=== PATIENT | female | born 1995 | race Caucasian/White ===

== ENCOUNTER 2020-11-05 11:50 | Outpatient (REF) | payer OTHER, SELFPAY ==
[2020-11-05 14:47] LABS: Alanine Aminotransferase 10 U/L (0-31); Albumin Level 4.5 g/dL (3.5-5.0); Alkaline Phosphatase 48 U/L (39-117); Aspartate Amino Transferase 13 U/L (5-31); Bilirubin Direct 0.3 mg/dL (0.0-0.5); Bilirubin Total 0.7 mg/dL (0.0-1.0); Cholesterol 186 mg/dL; HDL Cholesterol 59 mg/dL; LDL Cholesterol Calculated 108 mg/dl; Total Protein 7.6 g/dL (6.5-8.0); Triglycerides 99 mg/dL
[2020-11-05 15:05] LABS: Reflex LDLD? No
== END 2020-11-05 11:51 | disposition home or self-care (01) ==
LOC: HO.HMGCLDS 11:50
PROVIDERS: PCP Internal Medicine; Visit Provider Physician Assistant Medical
DX: L70.0 Acne vulgaris (principal); B07.8 Other viral warts; R23.8 Other skin changes; L08.89 Other specified local infections of the skin and subcutaneous tissue; Z79.899 Other long term (current) drug therapy
CPT/HCPCS: 36415; 80061; 80076

== ENCOUNTER 2020-11-09 11:43 | Outpatient (REF) | payer OTHER, SELFPAY ==
[2020-11-09 14:00] LABS: MANUAL DIFF FLAG NO
[2020-11-09 14:16] LABS: Basophils Absolute Auto 0.1 X10*3/uL (0.0-0.2); Basophils Percent Auto 1.3 % (0-2); Eosinophils Absolute Auto 0.1 X10*3/uL (0.0-0.4); Hematocrit 41.5 % (37-47); Hemoglobin 14.1 g/dl (12.0-16.0); Imm Gran Abs Auto 0.03 X10*3/uL (0.00-0.03); Imm Gran Pct Auto 0.4 % (0.0-0.4); Lymphocytes Absolute Auto 2.5 X10*3/uL (1.2-4.9); Lymphocytes Percent Auto 34.9 % (20-40); Mean Corpuscular Hemoglobin 31.8 pg (27.0-33.0); Mean Corpuscular Volume 93.5 fL (80-98); Mean Platelet Volume 10.4 fL (9.4-12.3); Monocytes Absolute Auto 0.7 X10*3/uL (0.1-1.2); Monocytes Percent Auto 9.8 % (2-11); Neutrophils Absolute Auto 3.7 X10*3/uL (2.0-8.3); Neutrophils Percent Auto 52.6 % (45-73); Platelet Count 264 X10*3/uL (160-400); Red Blood Count 4.44 X10*6/uL (4.20-5.50); Red Cell Distribution Width 11.8 % (11.0-16.0); White Blood Count 7.1 X10*3/uL (4.8-10.8)
[2020-11-09 14:24] LABS: Anion Gap 13 (12-20); Blood Urea Nitrogen 10 mg/dL (9-16); Calcium 9.3 mg/dL (8.4-10.2); Carbon Dioxide 24 mmol/L (22-29); Chloride 105 mmol/L (96-108); Estimated Glomerular Filt Rate > 60; Glucose Fasting 79 mg/dL (60-99); Potassium 4.1 mmol/l (3.3-5.1); Sodium 138 mmol/L (135-145)
[2020-11-09 14:41] LABS: Estimated Average Glucose 88 mg/dL; Hemoglobin A1c % 4.7 %
[2020-11-09 14:47] LABS: TSH reflex Free T4 2.28 mIU/mL (0.32-4.0); Vitamin D 25-OH Total 16.1 ng/mL (>30)
[2020-11-09 14:57] LABS: Folate 12.4 ng/mL (> or = 4.0); Vitamin B12 424 pg/mL (200-900)
== END 2020-11-09 11:44 | disposition home or self-care (01) ==
LOC: HO.HMGCLDS 11:43
PROVIDERS: PCP Internal Medicine; Visit Provider Internal Medicine
DX: R00.2 Palpitations (principal); I10 Essential (primary) hypertension; R25.1 Tremor, unspecified
CPT/HCPCS: 36415; 80048; 82306; 82607; 82746; 83036; 84443; 85025

== ENCOUNTER 2020-12-23 21:44 | Emergency (ER) | payer OTHER, SELFPAY ==
[2020-12-24 00:25] VITALS: BP 119/75; PULSE 82; RESP 16; TEMP 36.7; O2SAT 100; BMI 17.4
[2020-12-24 00:41] LABS: Glucose, Whole Blood 77 mg/dL (60-115)
[2020-12-24] MEDS: 0.9 % Sodium Chloride 1,000 ML 999 ML IV (00:46)
[2020-12-24 01:07] LABS: Basophils Absolute Auto 0.1 X10*3/uL (0.0-0.2); Basophils Percent Auto 0.6 % (0-2); Eosinophils Percent Auto 0.2 % (0-4); Hematocrit 39.7 % (37-47); Imm Gran Abs Auto 0.03 X10*3/uL (0.00-0.03); Imm Gran Pct Auto 0.3 % (0.0-0.4); Lymphocytes Absolute Auto 2.4 X10*3/uL (1.2-4.9); Lymphocytes Percent Auto 21.9 % (20-40); Mean Corpuscular HGB Conc 35.3 g/dl (31.0-35.0); Mean Corpuscular Volume 90.8 fL (80-98); Mean Platelet Volume 9.8 fL (9.4-12.3); Monocytes Absolute Auto 0.7 X10*3/uL (0.1-1.2); Monocytes Percent Auto 6.5 % (2-11); Neutrophils Absolute Auto 7.6 X10*3/uL (2.0-8.3); Neutrophils Percent Auto 70.5 % (45-73); Platelet Count 298 X10*3/uL (160-400); Red Blood Count 4.37 X10*6/uL (4.20-5.50); Red Cell Distribution Width 11.5 % (11.0-16.0); White Blood Count 10.8 X10*3/uL (4.8-10.8)
[2020-12-24 01:08] LABS: MANUAL DIFF FLAG NO
[2020-12-24 01:11] LABS: Glucose Urine UA NEG (NEG); Leukocyte Esterase Urine NEG (NEG); Nitrite Urine NEG (NEG); Specific Gravity - Urine 1.025 (1.005-1.025); Urine Blood NEG (NEG); Urine Ketones 40 MG/DL (NEG); Urine Protein NEG (NEG-TRACE)
[2020-12-24 01:12] LABS: UPreg QC Valid YES; Urine Pregnancy NEGATIVE (NEGATIVE)
[2020-12-24 01:13] LABS: Appearance Urine CLEAR; Color Urine YELLOW; UACC Culture Trigger NO
--- NOTE | 2020-12-24 01:16 | ED_ITS ---
HPI - General Adult General Chief complaint: General Medical Stated complaint: nausea vomiting Time Seen by Provider: 12/24/20 00:10 Source: patient Mode of arrival: EMS History of Present Illness HPI narrative: This is a 25-year-old female who presents with ongoing multiple symptoms since approximately September that she states started after visiting [place] with her boyfriend. She states that since that time she has ?not felt right? and further describes that as being headaches, increased anxiety, tremors. On review of documentation she has been evaluated by her primary care provider for generalized anxiety disorder, palpitations, and on review of lab work from October/2020 there were no acute findings which included evaluation of B12/TSH/folate. Patient states that she has never been diagnosed with anxiety before and does not understand why she would be now and states she has never had any issues with nausea and vomiting and denies any hematemesis, but states she has had blood with her stools. Although she denies any eating disorders as a teenager she does endorse that she has used laxatives in the past and states that this was due to problems with constipation. She has explicitly stated that she is concerned she may have a brain tumor, but denies neurological deficits such as speech or unilateral numbness/tingling/weakness. She states she does feel safe at home. LMP: Currently menstruating. Related Data Previous Rx's Medication Instructions Recorded albuterol sulfate 90 mcg/actuation 1 puff INHALATION QID PRN #8.5 g 11/01/20 aerosol inhaler cholecalciferol (vitamin D3) 1,250 1,250 mcg PO QWEEK 90 Days #13 cap 11/10/20 mcg (50,000 unit) capsule buspirone 5 mg tablet 5 mg PO BID #60 tab 11/30/20 Allergies Allergy/AdvReac Type Severity Reaction Status Date / Time amoxicillin [AMOXICILLIN] Allergy Unknown ANAPHYLAXIS, Verified 11/30/20 13:40 unknown-childhood peanut [PEANUTS] Allergy Unknown SWELLING, Verified 11/30/20 13:40 anaphylaxis Penicillins [PENICILLINS] Allergy Unknown ANAPHYLAXIS Verified 11/30/20 13:40 Review of Systems Review of Systems: Pertinent positives and negatives as stated in HPI and 10 point review of systems is otherwise negative. PMFSH Past Medical History Source: nursing notes reviewed Medical History Generalized anxiety disorder IBS (irritable bowel syndrome) Mild intermittent asthma Palpitation Shakiness Vitamin D deficiency Surgical History History of wisdom tooth extraction Family History Family History Father Diabetes mellitus HTN (hypertension) Stroke Back problem Kidney stone Mother Anxiety Ovarian cyst Maternal Grandmother Unknown family medical history Maternal Grandfather Unknown family medical history Paternal Grandmother Unknown family medical history Alzheimer's disease Paternal Grandfather Unknown family medical history Brother No problems noted. Brother No problems noted. Brother No problems noted. Sister No problems noted. Sister No problems noted. Sister No problems noted. Sister No problems noted. Social History Social History Alcohol intake: never Smoking Status: Never smoker Advance Directives: No Physical Exam Vital Signs: Vital Signs: Last Vital Signs Temp 98.0 F 12/24/20 00:25 Pulse 82 12/24/20 00:25 Resp 16 12/24/20 00:25 BP 119/75 12/24/20 00:25 Pulse Ox 100 12/24/20 00:25 Body Mass Index 17.4 VITAL SIGNS: Reviewed. GENERAL: Well developed, well nourished, in no acute distress. HEAD: Normocephalic/atraumatic EYES: PERRLA, EOMI intact without pain, no nystagmus EARS: Ext canals without abnormality NOSE: Nares patent bilateral OROPHARYNX: no oral lesions noted, posterior pharynx clear NECK: Supple, no adenopathy LUNGS: Normal breath sounds. No adventitious sounds or accessory muscle use. SpO2<100> CARDIOVASCULAR: Regular rate and rhythm without noted murmurs ABDOMEN: Soft, non-tender, non-distended with bowel sounds. SKIN: Inspection of the skin reveals no rashes NEUROLOGIC: Alert and oriented x 4. Strength and sensation to light touch were grossly intact x 4. Course Course Course Narrative: This is a 25-year-old female with history and clinical presentation consistent with likely anxiety disorder, but will rule out infection/anemia/electrolyte derangements as well as fluid resuscitating in providing anti emetics. On review of all investigations there is no acute findings to suggest electrolyte abnormalities, infection, anemia, . On re-evaluation patient is feeling improved after receiving IV fluids (she declined Zofran) and was discharged in stable condition and noted to be tolerating oral intake. Medical Decision Making Lab Data Result diagrams: 12/24/20 01:01 12/24/20 01:01 Labs: Lab Results 12/24/20 12/24/20 12/24/20 Range/Units 00:37 01:01 01:01 WBC (4.8-10.8) X10*3/uL RBC (4.20-5.50) X10*6/uL Hgb (12.0-16.0) g/dl Hct (37-47) % MCV (80-98) fL MCH (27.0-33.0) pg MCHC (31.0-35.0) g/dl RDW (11.0-16.0) % Plt Count (160-400) X10*3/uL MPV (9.4-12.3) fL Immature Gran % (Auto) (0.0-0.4) % Neut % (Auto) (45-73) % Lymph % (Auto) (20-40) % [place] % (Auto) (2-11) % Eos % (Auto) (0-4) % Baso % (Auto) (0-2) % Lymph # (Auto) (1.2-4.9) X10*3/uL [place] # (Auto) (0.1-1.2) X10*3/uL Eos # (Auto) (0.0-0.4) X10*3/uL Baso # (Auto) (0.0-0.2) X10*3/uL Abs Immat Gran (auto) (0.00-0.03) X10*3/uL Absolute Neuts (auto) (2.0-8.3) X10*3/uL Absolute Nucleated RBC (0.0-0.012) X10*3/uL Nucleated RBC % (auto) (0.0-0.2) /100WBC ESR 7 (0-20) MM/HR Sodium 138 (135-145) mmol/L Potassium 4.1 (3.3-5.1) mmol/L Chloride 103 (96-108) mmol/L Carbon Dioxide 25 (22-29) mmol/L Anion Gap 14 (12-20) BUN 12 (9-16) mg/dL Creatinine 0.82 (0.5-1.4) mg/dL Estim Creat Clear Calc 78.1 Estimated GFR > 60 POC Glucose 77 (60-115) mg/dL Random Glucose 87 (60-115) mg/dL Calcium 9.5 (8.4-10.2) mg/dL Total Bilirubin 0.5 (0.0-1.0) mg/dL AST 13 (5-31) U/L ALT 12 (0-31) U/L Alkaline Phosphatase 50 (39-117) U/L C-Reactive Protein 0.09 (< or = 0.50) mg/dL Total Protein 7.8 (6.5-8.0) g/dL Albumin 4.7 (3.5-5.0) g/dL Lipase (8-78) U/L Urine Color Urine Appearance Urine pH (5.0-8.0) Ur Specific [place] (1.005-1.025) Urine Protein (NEG-TRACE) MG/DL Urine Glucose (UA) (NEG) MG/DL Urine Ketones (NEG) MG/DL Urine Blood (NEG) Urine Nitrite (NEG) Ur Leukocyte Esterase (NEG) Urine Test (NEGATIVE) Urine Opiates Screen (Not Detect) Ur Barbiturates Screen (Not Detect) Ur Phencyclidine Scrn (Not Detect) Ur Amphetamines Screen (Not Detect) U Benzodiazepines Scrn (Not Detect) Urine Cocaine Screen (Not Detect) U Marijuana (THC) Screen (Not Detect) 12/24/20 12/24/20 12/24/20 Range/Units 01:01 01:01 01:01 WBC 10.8 (4.8-10.8) X10*3/uL RBC 4.37 (4.20-5.50) X10*6/uL Hgb 14.0 (12.0-16.0) g/dl Hct 39.7 (37-47) % MCV 90.8 (80-98) fL MCH 32.0 (27.0-33.0) pg MCHC 35.3 H (31.0-35.0) g/dl RDW 11.5 (11.0-16.0) % Plt Count 298 (160-400) X10*3/uL MPV 9.8 (9.4-12.3) fL Immature Gran % (Auto) 0.3 (0.0-0.4) % Neut % (Auto) 70.5 (45-73) % Lymph % (Auto) 21.9 (20-40) % [place] % (Auto) 6.5 (2-11) % Eos % (Auto) 0.2 (0-4) % Baso % (Auto) 0.6 (0-2) % Lymph # (Auto) 2.4 (1.2-4.9) X10*3/uL [place] # (Auto) 0.7 (0.1-1.2) X10*3/uL Eos # (Auto) 0.0 (0.0-0.4) X10*3/uL Baso # (Auto) 0.1 (0.0-0.2) X10*3/uL Abs Immat Gran (auto) 0.03 (0.00-0.03) X10*3/uL Absolute Neuts (auto) 7.6 (2.0-8.3) X10*3/uL Absolute Nucleated RBC 0.000 (0.0-0.012) X10*3/uL Nucleated RBC % (auto) 0.0 (0.0-0.2) /100WBC ESR (0-20) MM/HR Sodium (135-145) mmol/L Potassium (3.3-5.1) mmol/L Chloride (96-108) mmol/L Carbon Dioxide (22-29) mmol/L Anion Gap (12-20) BUN (9-16) mg/dL Creatinine (0.5-1.4) mg/dL Estim Creat Clear Calc Estimated GFR POC Glucose (60-115) mg/dL Random Glucose (60-115) mg/dL Calcium (8.4-10.2) mg/dL Total Bilirubin (0.0-1.0) mg/dL AST (5-31) U/L ALT (0-31) U/L Alkaline Phosphatase (39-117) U/L C-Reactive Protein (< or = 0.50) mg/dL Total Protein (6.5-8.0) g/dL Albumin (3.5-5.0) g/dL Lipase 25 (8-78) U/L Urine Color Urine Appearance Urine pH (5.0-8.0) Ur Specific [place] (1.005-1.025) Urine Protein (NEG-TRACE) MG/DL Urine Glucose (UA) (NEG) MG/DL Urine Ketones (NEG) MG/DL Urine Blood (NEG) Urine Nitrite (NEG) Ur Leukocyte Esterase (NEG) Urine Test (NEGATIVE) Urine Opiates Screen Not Detected (Not Detect) Ur Barbiturates Screen Not Detected (Not Detect) Ur Phencyclidine Scrn Not Detected (Not Detect) Ur Amphetamines Screen Not Detected (Not Detect) U Benzodiazepines Scrn Not Detected (Not Detect) Urine Cocaine Screen Not Detected (Not Detect) U Marijuana (THC) Screen Not Detected (Not Detect) 12/24/20 12/24/20 Range/Units 01:01 01:01 WBC (4.8-10.8) X10*3/uL RBC (4.20-5.50) X10*6/uL Hgb (12.0-16.0) g/dl Hct (37-47) % MCV (80-98) fL MCH (27.0-33.0) pg MCHC (31.0-35.0) g/dl RDW (11.0-16.0) % Plt Count (160-400) X10*3/uL MPV (9.4-12.3) fL Immature Gran % (Auto) (0.0-0.4) % Neut % (Auto) (45-73) % Lymph % (Auto) (20-40) % [place] % (Auto) (2-11) % Eos % (Auto) (0-4) % Baso % (Auto) (0-2) % Lymph # (Auto) (1.2-4.9) X10*3/uL [place] # (Auto) (0.1-1.2) X10*3/uL Eos # (Auto) (0.0-0.4) X10*3/uL Baso # (Auto) (0.0-0.2) X10*3/uL Abs Immat Gran (auto) (0.00-0.03) X10*3/uL Absolute Neuts (auto) (2.0-8.3) X10*3/uL Absolute Nucleated RBC (0.0-0.012) X10*3/uL Nucleated RBC % (auto) (0.0-0.2) /100WBC ESR (0-20) MM/HR Sodium (135-145) mmol/L Potassium (3.3-5.1) mmol/L Chloride (96-108) mmol/L Carbon Dioxide (22-29) mmol/L Anion Gap (12-20) BUN (9-16) mg/dL Creatinine (0.5-1.4) mg/dL Estim Creat Clear Calc Estimated GFR POC Glucose (60-115) mg/dL Random Glucose (60-115) mg/dL Calcium (8.4-10.2) mg/dL Total Bilirubin (0.0-1.0) mg/dL AST (5-31) U/L ALT (0-31) U/L Alkaline Phosphatase (39-117) U/L C-Reactive Protein (< or = 0.50) mg/dL Total Protein (6.5-8.0) g/dL Albumin (3.5-5.0) g/dL Lipase (8-78) U/L Urine Color YELLOW Urine Appearance CLEAR Urine pH 6.0 (5.0-8.0) Ur Specific [place] 1.025 (1.005-1.025) Urine Protein NEG (NEG-TRACE) MG/DL Urine Glucose (UA) NEG (NEG) MG/DL Urine Ketones 40 (NEG) MG/DL Urine Blood NEG (NEG) Urine Nitrite NEG (NEG) Ur Leukocyte Esterase NEG (NEG) Urine Test NEGATIVE (NEGATIVE) Urine Opiates Screen (Not Detect) Ur Barbiturates Screen (Not Detect) Ur Phencyclidine Scrn (Not Detect) Ur Amphetamines Screen (Not Detect) U Benzodiazepines Scrn (Not Detect) Urine Cocaine Screen (Not Detect) U Marijuana (THC) Screen (Not Detect) Discharge Plan Discharge Clinical Impression: Anxiety about health Nausea & vomiting Qualifiers: Vomiting type: unspecified Vomiting Intractability: non-intractable Qualified Code(s): R11.2 - Nausea with vomiting, unspecified Patient Disposition: Home, Self-Care Instructions: Anxiety (ED), Acute Nausea and Vomiting (ED) Additional Instructions: Please resume all home medications as prescribed. Please follow-up with your primary care provider in 2-3 days for re-evaluation and continued outpatient management of your symptoms. Do not hesitate to return to this emergency room should you experience any acute worsening of your symptoms. Prescriptions: No Action albuterol sulfate 90 mcg/actuation HFA aerosol inhaler 1 puff inhalation QID PRN (Reason: for wheezing) Qty: 8.5 RF: 0 cholecalciferol (vitamin D3) 1,250 mcg (50,000 unit) capsule 1,250 mcg PO QWEEK 90 Days Qty: 13 RF: 1 buspirone 5 mg tablet 5 mg PO BID Qty: 60 RF: 0 Referrals: Luisa Manriquez MD [Primary Care Provider] - 2 days (Re-evaluation outpatient management after negative workup in emergency department.)
[2020-12-24 01:34] LABS: Amphetamine Screen Urine Not Detected (Not Detect); Barbiturates, Urine Not Detected (Not Detect); Benzodiazepines Screen Urine Not Detected (Not Detect); Cannabinoid Screen Urine Not Detected (Not Detect); Cocaine Screen Urine Not Detected (Not Detect); Opiate Screen Urine Not Detected (Not Detect); Phencyclidine Screen Urine Not Detected (Not Detect)
[2020-12-24 01:35] LABS: Alanine Aminotransferase 12 U/L (0-31); Albumin Level 4.7 g/dL (3.5-5.0); Alkaline Phosphatase 50 U/L (39-117); Anion Gap 14 (12-20); Aspartate Amino Transferase 13 U/L (5-31); Bilirubin Total 0.5 mg/dL (0.0-1.0); Blood Urea Nitrogen 12 mg/dL (9-16); C Reactive Protein 0.09 mg/dL (< or = 0.50); Calcium 9.5 mg/dL (8.4-10.2); Carbon Dioxide 25 mmol/L (22-29); Chloride 103 mmol/L (96-108); Creatinine Clr Calc Pharmacy 78.1; Estimated Glomerular Filt Rate > 60; Glucose Random 87 mg/dL (60-115); Lipase 25 U/L (8-78); Potassium 4.1 mmol/L (3.3-5.1); Sodium 138 mmol/L (135-145); Total Protein 7.8 g/dL (6.5-8.0)
[2020-12-24 01:52] LABS: Erythrocyte Sedimentation Rate 7 MM/HR (0-20)
[2020-12-24 02:00] VITALS: BP 111/71; PULSE 81; RESP 18; TEMP 36.7; O2SAT 98
[2020-12-24 02:57] VITALS: BP 111/71; PULSE 75; RESP 16; O2SAT 98
== END 2020-12-24 03:00 | disposition home or self-care (01) ==
PROVIDERS: Emergency Provider Student in an Organized Health Care Education/Training Program; PCP Internal Medicine
DX: R11.2 Nausea with vomiting, unspecified (principal); F41.9 Anxiety disorder, unspecified; Z79.899 Other long term (current) drug therapy
CPT/HCPCS: 36415; 80053; 80164; 80307; 81003; 81025; 82947; 83690; 85025; 85652; 86140; 96360; 99284

== ENCOUNTER 2021-01-05 12:42 | Outpatient (REF) | payer OTHER, SELFPAY ==
--- NOTE | ~2021-01-05 | MR_ITS ---
EXAMINATION: MR BRAIN WITHOUT CONTRAST CLINICAL INFORMATION: Headaches. COMPARISON: None. TECHNIQUE: Multiplanar, multisequence imaging of the brain was performed without contrast. FINDINGS: No diffusion abnormalities are identified to suggest an acute or subacute infarct. The ventricles are normal in size. No mass effect or midline shift is seen. No brain parenchymal signal abnormality is noted. No extra-axial fluid collections are seen. The brainstem and cerebellum are normal. The gradient refocused acquisition is normal. The craniovertebral junction, marrow signal, and midline structures are normal. The major intracranial flow voids at the level of the [place] of [place] are preserved. The dural venous sinus flow voids are maintained. The mastoid air cells and paranasal sinuses are well aerated. MR/MR head/brain wo con IMPRESSION: Normal MRI of the brain.
== END 2021-01-05 12:43 | disposition home or self-care (01) ==
LOC: HO.MRI 12:42
PROVIDERS: Visit Provider Internal Medicine
DX: R51.9 Headache, unspecified (principal); R41.3 Other amnesia; R53.1 Weakness; R20.2 Paresthesia of skin
CPT/HCPCS: 70551

== ENCOUNTER 2021-01-19 09:15 | Outpatient (RCR) | payer OTHER, SELFPAY ==
[2021-01-18 12:07] VITALS: BMI 17.9
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
--- NOTE | 2021-01-19 10:53 | PC.NURSE ---
Patient started Mirtazapine 15 mg QHS taking a half tab as instructed. Stated she felt a little groggy this morning. Patient also took Ativan PRN this morning d/t increased anxiety. Medication Education provided. Instructed patient not to drive or operate heavy machinery if feeling drowsy.
--- NOTE | 2021-01-20 09:24 | PC.NURSE ---
Client called and left nahomy that she won't be in because she is going for an assessment at crisis. She states that she feels nothing is helping not even the medication and she needs something else. I called and left a message to call us to let us know what happened.
--- NOTE | 2021-01-20 15:13 | PC.NURSE ---
case opened in treatment team
--- NOTE | 2021-01-21 09:22 | PC.NURSE ---
Patient did not show up to the program today. I called Devi and she stated she will not be attending PHP as she is waiting for crisis to call her as she is planning on going to [facility] today. Asked patient is she was feeling safe and she stated she was. Distressed over her obsessive thoughts. Patient aware if she wants to come back to the program after [facility] to give us a call.
--- NOTE | 2021-01-24 10:26 | PC.NURSE ---
A meeage was left with client<s therapist regarding client discharge.
== END 2021-01-19 23:55 | disposition left against medical advice (07) ==
LOC: HO.PHPA 09:15
PROVIDERS: Visit Provider Psychiatry & Neurology Psychiatry
DX: F42.9 Obsessive-compulsive disorder, unspecified (principal); F34.1 Dysthymic disorder
CPT/HCPCS: 90791; 90853

== ENCOUNTER 2022-02-11 15:38 | Outpatient (REF) | payer OTHER, SELFPAY ==
[2022-02-11 16:38] LABS: Influenza A PCR NEGATIVE (Negative); Influenza B PCR NEGATIVE (Negative); Resp Syncy Virus RNA Qual PCR NEGATIVE (Negative); SARS COV2 PCR INHOUSE NEGATIVE (Negative)
== END 2022-02-11 15:39 | disposition home or self-care (01) ==
LOC: HO.LNP 15:38
PROVIDERS: Visit Provider Physician Assistant
DX: Z20.822 Contact with and (suspected) exposure to COVID-19 (principal); B34.9 Viral infection, unspecified
CPT/HCPCS: 0241U

== ENCOUNTER 2022-10-09 08:12 | Emergency (ER) | payer OTHER, SELFPAY ==
[2022-10-09 08:15] VITALS: BP 140/77; PULSE 109; RESP 20; TEMP 36.7; O2SAT 98; BMI 27.4
[2022-10-09 08:59] LABS: COVID-19 Test Negative (Negative); IDNOW Serial# 16C4AD1C; IDNOW Serial# 9DB6401D; Influenza A Negative (Negative); Influenza B2 Negative (Negative)
[2022-10-09 09:37] LABS: Strep A Nucleic Acid Negative (Negative)
--- NOTE | 2022-10-09 09:40 | ED.GENADULT ---
HPI - General Adult General Chief complaint: Upper Respiratory Symptoms Stated complaint: Flu symptoms Time Seen by Provider: 10/09/22 08:57 Source: patient Mode of arrival: ambulatory Limitations: no limitations History of Present Illness HPI narrative: 27-year-old female presented to the ED for evaluation of upper respiratory symptoms. Patient been having generalized weakness, body ache, subjective tactile fever, chills, sore throat, dry cough. Patient was exposed to her boyfriend who was sick with influenza A 10 days ago and feels better now. Related Data Home Medications Medication Instructions Recorded Confirmed albuterol sulfate 90 mcg/actuation 1 puff inhalation Q6H 07/24/22 07/24/22 aerosol inhaler (ProAir HFA) Previous Rx's Medication Instructions Recorded benzonatate 200 mg capsule 200 mg PO BID PRN Post COVID 07/24/22 cough #20 caps fluoxetine 40 mg capsule 40 mg PO DAILY 90 days #90 caps 08/11/22 lorazepam 1 mg tablet 1 mg PO DAILY PRN anxiety 14 days 09/26/22 #14 tabs loperamide 2 mg capsule 2 mg PO Q6H PRN loose stool #14 09/29/22 (Anti-Diarrheal (loperamide)) caps ondansetron 4 mg disintegrating 4 mg PO Q8-12H PRN nausea and 09/29/22 tablet vomiting #14 tabs Allergies Allergy/AdvReac Type Severity Reaction Status Date / Time amoxicillin [AMOXICILLIN] Allergy Unknown Rash Verified 09/29/22 08:19 Penicillins [PENICILLINS] Allergy Unknown Rash Verified 09/29/22 08:19 Review of Systems Review of Systems: All other systems are reviewed and are negative Constitutional: Reports as per HPI and Reports no additional constitutional complaints Eyes: Reports as per HPI and Reports no additional eye complaints Reports system reviewed and no additional complaints, except as documented Cardiovascular: Reports as per HPI and Reports no additional cardiovascular complaints Respiratory: Reports as per HPI and Reports no additional respiratory complaints Gastrointestinal: Reports as per HPI and Reports no additional gastrointestinal complaints Genitourinary: Reports no additional female genitourinary complaints Musculoskeletal: Reports no additional musculoskeletal complaints Skin/Breast: Reports system reviewed and no additional complaints, except as docu Psychiatric: Reports no additional psychiatric complaints Endocrine: Reports no additional endocrine complaints Hematologic/Lymphatic: Reports no additional hematologic/lymphatic complaints Allergic/Immunologic: Reports no additional allergic/immunologic complaints Reports system reviewed and no additional complaints, except as documented and Reports Abnormal speech present [facility] Past Medical History Medical History Generalized anxiety disorder IBS (irritable bowel syndrome) Mild intermittent asthma Vitamin D deficiency Surgical History History of wisdom tooth extraction Family History Family History Father Diabetes mellitus HTN (hypertension) Stroke Back problem Kidney stone Mother Anxiety Ovarian cyst Maternal Grandmother Unknown family medical history Maternal Grandfather Unknown family medical history Paternal Grandmother Unknown family medical history Alzheimer's disease Paternal Grandfather Unknown family medical history Brother No problems noted. Brother No problems noted. Brother No problems noted. Sister No problems noted. Sister No problems noted. Sister No problems noted. Sister No problems noted. Social History Social History Household Members: Family Housing: House Alcohol intake: never Patient Tobacco Use Status: Never used Tobacco e-Cigarette/Vaping Use: Never Used Advance Directives: No Advance Directives Information Provided: No service: No Current occupational status: employed Cognitive needs: No Hearing needs: No Vision needs: Yes Physical Exam ED Vital Signs: Vital Signs - 24 hr 10/09/22 08:15 Temperature 98.1 F Pulse Rate 109 H Respiratory Rate 20 Blood Pressure 140/77 H Pulse Oximetry 98 Oxygen Delivery Method Room Air BMI result Body Mass Index 27.4 Vital signs have been reviewed as appeared to be correct. Blood pressure normal. Tachycardia. Respiration rate normal. Temperature normal. Oxygen saturation normal. Appearance: Alert. Oriented X3. No acute distress. Head: Normal external exam. Normocephalic. Atraumatic. No Barrientos signs noted. No raccoon eyes noted Eyes: PERRLA. EOMI. Conjunctiva and sclera normal. Eyelids normal. ENT: TM's Normal. Pharynx normal. Uvula midline. Moist mucous membranes. No trismus noted. No drooling noted. No muffled voice noted. Neck: Normal inspection. Neck supple. FROM. No adenopathy. Thyroid Normal. No meningeal signs. No neck mass noted. CVS: Normal heart rate and rhythm. Heart sound normal. No murmurs noted. Pulses normal throughout. Respiratory: No respiratory distress. Painless inspiration. Breath sounds normal. No wheezes/rales/rhonchi noted. Chest nontender. No accessory muscle usage noted or decreased air movement noted. Abdomen: Soft and nontender. Bowel sounds normal in all 4 quadrants. No distention noted. No organomegaly noted. No visible injury noted. Back: No CVA tenderness. Full range of motion noted. Skin: Skin warm and dry. Normal skin color. Normal skin turgor. No rashes/lesions/lacerations noted. Extremities: No lower extremity edema. Extremities exhibit normal range of motion. Extremities nontender. Neuro: Oriented X 3. Cranial nerve exam: II-XII are grossly intact No motor deficit. No sensory deficit. Reflexes normal. Course Course Course Narrative: 27-year-old female with previous exposure to influenza a, came in with upper respiratory symptoms patient is negative for upper respiratory viral panel. Medical Decision Making Differential Diagnosis Differential Diagnoses: The differential diagnosis associated with the presentation includes (RSV, influenza a/B, COVID-19 infection, strep pharyngitis, common cold.) Lab Data MDM Lab Attestation statement: I reviewed the patient's lab results. Labs: Lab Results 10/09/22 10/09/22 10/09/22 Range/Units 08:19 08:19 09:22 COVID-19 (JUAN) Negative (Negative) COVID-19 Clin Com See Note Influenza Type A (JON) Negative (Negative) Influenza Type B (JON) Negative (Negative) Influenza A & B Note See Note S. pyogenes GrpA JON Negative (Negative) Discharge Plan Discharge Clinical Impression: Viral infection Patient Disposition: Home, Self-Care Instructions: Viral Syndrome (ED) Prescriptions: No Action fluoxetine 40 mg capsule 40 mg PO DAILY 90 Days Qty: 90 1RF lorazepam 1 mg tablet 1 mg PO DAILY PRN (Reason: anxiety) 14 Days Qty: 14 0RF ondansetron 4 mg tablet,disintegrating 4 mg PO Q8-12H PRN (Reason: nausea and vomiting) Qty: 14 0RF loperamide [Anti-Diarrheal (loperamide)] 2 mg capsule 2 mg PO Q6H PRN (Reason: loose stool) Qty: 14 0RF albuterol sulfate [ProAir HFA] 90 mcg/actuation HFA aerosol inhaler 1 puff inhalation Q6H benzonatate 200 mg capsule 200 mg PO BID PRN (Reason: Post COVID cough) Qty: 20 0RF Referrals: Luisa Manriquez MD [Primary Care Provider] - Stand Alone Forms: Work/School Release
== END 2022-10-09 10:07 | disposition home or self-care (01) ==
PROVIDERS: Emergency Provider Emergency Medicine; PCP Internal Medicine
DX: B34.9 Viral infection, unspecified (principal); J02.9 Acute pharyngitis, unspecified; Z20.822 Contact with and (suspected) exposure to COVID-19
CPT/HCPCS: 36415; 87502; 87635; 87651; 99283

== ENCOUNTER 2022-10-11 04:07 | Emergency (ER) | payer OTHER, SELFPAY ==
[2022-10-11 04:12] VITALS: BP 116/72; PULSE 100; RESP 16; TEMP 36.9; O2SAT 98; BMI 26.8
[2022-10-11 05:19] LABS: Influenza A PCR NEGATIVE (Negative); Influenza B PCR NEGATIVE (Negative); Resp Syncy Virus RNA Qual PCR NEGATIVE (Negative); SARS COV2 PCR INHOUSE NEGATIVE (Negative)
--- NOTE | 2022-10-11 06:26 | ED.GENADULT ---
HPI - General Adult General Chief complaint: Upper Respiratory Symptoms Stated complaint: was here 2 days ago, symptoms worsening Time Seen by Provider: 10/11/22 04:52 Source: patient and family Mode of arrival: ambulatory Limitations: no limitations History of Present Illness HPI narrative: 27-year-old female presented to the ED for evaluation of upper respiratory symptoms.? Patient been having generalized weakness, body ache, subjective tactile fever, chills, sore throat, dry cough.? Patient was exposed to her boyfriend who was sick with influenza A 10 days ago and feels better now. Patient was seen in emergency department 2 days ago and tested negative for upper respiratory viral panels. Patient returned today for persistence of symptoms. Related Data Home Medications Medication Instructions Recorded Confirmed albuterol sulfate 90 mcg/actuation 1 puff inhalation Q6H 07/24/22 07/24/22 aerosol inhaler (ProAir HFA) Previous Rx's Medication Instructions Recorded benzonatate 200 mg capsule 200 mg PO BID PRN Post COVID 07/24/22 cough #20 caps fluoxetine 40 mg capsule 40 mg PO DAILY 90 days #90 caps 08/11/22 lorazepam 1 mg tablet 1 mg PO DAILY PRN anxiety 14 days 09/26/22 #14 tabs loperamide 2 mg capsule 2 mg PO Q6H PRN loose stool #14 09/29/22 (Anti-Diarrheal (loperamide)) caps ondansetron 4 mg disintegrating 4 mg PO Q8-12H PRN nausea and 09/29/22 tablet vomiting #14 tabs Allergies Allergy/AdvReac Type Severity Reaction Status Date / Time amoxicillin [AMOXICILLIN] Allergy Unknown Rash Verified 10/10/22 09:13 Penicillins [PENICILLINS] Allergy Unknown Rash Verified 10/10/22 09:13 Review of Systems Review of Systems: All other systems are reviewed and are negative Constitutional: Reports as per HPI and Reports no additional constitutional complaints Eyes: Reports as per HPI and Reports no additional eye complaints Reports system reviewed and no additional complaints, except as documented Cardiovascular: Reports as per HPI and Reports no additional cardiovascular complaints Respiratory: Reports as per HPI and Reports no additional respiratory complaints Gastrointestinal: Reports as per HPI and Reports no additional gastrointestinal complaints Genitourinary: Reports no additional female genitourinary complaints Musculoskeletal: Reports no additional musculoskeletal complaints Skin/Breast: Reports system reviewed and no additional complaints, except as docu Psychiatric: Reports no additional psychiatric complaints Endocrine: Reports no additional endocrine complaints Hematologic/Lymphatic: Reports no additional hematologic/lymphatic complaints Allergic/Immunologic: Reports no additional allergic/immunologic complaints Reports system reviewed and no additional complaints, except as documented and Reports Abnormal speech present [facility] Past Medical History Medical History Generalized anxiety disorder IBS (irritable bowel syndrome) Mild intermittent asthma Vitamin D deficiency Surgical History History of wisdom tooth extraction Family History Family History Father Diabetes mellitus HTN (hypertension) Stroke Back problem Kidney stone Mother Anxiety Ovarian cyst Maternal Grandmother Unknown family medical history Maternal Grandfather Unknown family medical history Paternal Grandmother Unknown family medical history Alzheimer's disease Paternal Grandfather Unknown family medical history Brother No problems noted. Brother No problems noted. Brother No problems noted. Sister No problems noted. Sister No problems noted. Sister No problems noted. Sister No problems noted. Social History Social History Household Members: Family Housing: House Alcohol intake: never Patient Tobacco Use Status: Never used Tobacco e-Cigarette/Vaping Use: Never Used Advance Directives: No Advance Directives Information Provided: Yes service: No Current occupational status: employed Cognitive needs: No Hearing needs: No Vision needs: Yes Physical Exam ED Vital Signs: Vital Signs - 24 hr 10/11/22 04:12 Temperature 98.4 F Pulse Rate 100 Respiratory Rate 16 Blood Pressure 116/72 Pulse Oximetry 98 Oxygen Delivery Method Room Air BMI result Body Mass Index 26.8 Vital signs have been reviewed as appeared to be correct. Blood pressure normal. Heart rate normal. Respiration rate normal. Temperature normal. Oxygen saturation normal. Appearance: Alert. Oriented X3. No acute distress. Head: Normal external exam. Normocephalic. Atraumatic. No Barrientos signs noted. No raccoon eyes noted Eyes: PERRLA. EOMI. Conjunctiva and sclera normal. Eyelids normal. ENT: TM's Normal. Pharynx normal. Uvula midline. Moist mucous membranes. No trismus noted. No drooling noted. No muffled voice noted. Neck: Normal inspection. Neck supple. FROM. No adenopathy. Thyroid Normal. No meningeal signs. No neck mass noted. CVS: Normal heart rate and rhythm. Heart sound normal. No murmurs noted. Pulses normal throughout. Respiratory: No respiratory distress. Painless inspiration. Breath sounds normal. No wheezes/rales/rhonchi noted. Chest nontender. No accessory muscle usage noted or decreased air movement noted. Abdomen: Soft and nontender. Bowel sounds normal in all 4 quadrants. No distention noted. No organomegaly noted. No visible injury noted. Back: No CVA tenderness. Full range of motion noted. Skin: Skin warm and dry. Normal skin color. Normal skin turgor. No rashes/lesions/lacerations noted. Extremities: No lower extremity edema. Extremities exhibit normal range of motion. Extremities nontender. Neuro: Oriented X 3. Cranial nerve exam: II-XII are grossly intact No motor deficit. No sensory deficit. Reflexes normal. Course Course Course Narrative: 27-year-old female with upper respiratory symptoms patient tested negative for upper respiratory viral panels. Patient was instructed to stay home drink plenty of fluids and take ibuprofen/ Tylenol whenever needed. Medical Decision Making Differential Diagnosis Differential Diagnoses: The differential diagnosis associated with the presentation includes ( Influenza a/influenza B/ RSV / COVID-19 infection.) Lab Data MDM Lab Attestation statement: I reviewed the patient's lab results. Labs: Lab Results 10/11/22 Range/Units 04:38 Influenza Type A (PCR) NEGATIVE (Negative) Influenza Type B (PCR) NEGATIVE (Negative) RSV RNA Qual (PCR) NEGATIVE (Negative) SARS-CoV-2 RNA (RT-PCR) NEGATIVE (Negative) Discharge Plan Discharge Clinical Impression: Viral infection Patient Disposition: Home, Self-Care Instructions: Viral Syndrome (ED) Prescriptions: No Action fluoxetine 40 mg capsule 40 mg PO DAILY 90 Days Qty: 90 1RF lorazepam 1 mg tablet 1 mg PO DAILY PRN (Reason: anxiety) 14 Days Qty: 14 0RF ondansetron 4 mg tablet,disintegrating 4 mg PO Q8-12H PRN (Reason: nausea and vomiting) Qty: 14 0RF loperamide [Anti-Diarrheal (loperamide)] 2 mg capsule 2 mg PO Q6H PRN (Reason: loose stool) Qty: 14 0RF albuterol sulfate [ProAir HFA] 90 mcg/actuation HFA aerosol inhaler 1 puff inhalation Q6H benzonatate 200 mg capsule 200 mg PO BID PRN (Reason: Post COVID cough) Qty: 20 0RF Referrals: Luisa Manriquez MD [Primary Care Provider] -
--- NOTE | 2022-10-11 06:40 | PC.NURSE ---
Pt left after speaking with MD, did not wait for discharge papers or vitals.
== END 2022-10-11 06:44 | disposition home or self-care (01) ==
PROVIDERS: Emergency Provider Emergency Medicine; PCP Internal Medicine
DX: B34.9 Viral infection, unspecified (principal); R05.9 Cough, unspecified; R06.02 Shortness of breath; Z20.822 Contact with and (suspected) exposure to COVID-19; Z79.899 Other long term (current) drug therapy
CPT/HCPCS: 0241U; 99283

== ENCOUNTER 2023-04-16 21:18 | Emergency (ER) | payer OTHER, SELFPAY ==
[2023-04-16 21:30] VITALS: BP 123/76; PULSE 115; RESP 20; TEMP 37.4; O2SAT 98; BMI 28.0
[2023-04-17 00:22] VITALS: BP 107/76; PULSE 101; RESP 14; TEMP 37.2; O2SAT 99
--- NOTE | 2023-04-17 00:33 | ED.GENADULT ---
HPI - General Adult General Chief complaint: Fever Stated complaint: fever,vomiting,body aches Time Seen by Provider: 04/17/23 00:31 Source: patient Mode of arrival: ambulatory Limitations: no limitations History of Present Illness HPI narrative: Patient been having sore throat body aches nausea vomiting after cough since yesterday evening no abdominal pain no urinary symptoms no significant shortness of breath no other family member sick at home took Tylenol and Mucinex today at 16:00 no other co-worker sick Related Data Home Medications Medication Instructions Recorded Confirmed albuterol sulfate 90 mcg/actuation 1 puff inhalation Q6H 07/24/22 11/15/22 aerosol inhaler (ProAir HFA) acetaminophen 500 mg oral powder 1,000 mg PO Q6H PRN 11/16/22 packet (Tylenol Extra Strength) Previous Rx's Medication Instructions Recorded fluoxetine 40 mg capsule 40 mg PO DAILY 90 days #90 caps 10/11/22 lorazepam 1 mg tablet 1 mg PO DAILY PRN anxiety 14 days 12/12/22 #14 tabs cefdinir 300 mg capsule 300 mg PO BID #14 caps 04/17/23 ibuprofen 600 mg tablet 600 mg PO Q6H PRN fever or pain 04/17/23 #30 tabs Allergies Allergy/AdvReac Type Severity Reaction Status Date / Time amoxicillin [AMOXICILLIN] Allergy Unknown Rash Verified 11/17/22 01:08 Penicillins [PENICILLINS] Allergy Unknown Rash Verified 11/17/22 01:08 Review of Systems Review of Systems: Yes all other systems are reviewed and are negative PMFSH Past Medical History Medical History Generalized anxiety disorder IBS (irritable bowel syndrome) Large breasts Mild intermittent asthma Upper back pain, chronic Vitamin D deficiency Surgical History History of wisdom tooth extraction Family History Family History Father Diabetes mellitus HTN (hypertension) Stroke Back problem Kidney stone Mental health disorder Mother Anxiety Ovarian cyst Mental health disorder Maternal Grandmother Unknown family medical history Maternal Grandfather Unknown family medical history Paternal Grandmother Unknown family medical history Alzheimer's disease Paternal Grandfather Unknown family medical history Brother No problems noted. Brother No problems noted. Brother No problems noted. Sister No problems noted. Sister No problems noted. Sister No problems noted. Sister No problems noted. Social History Social History Household Members: Family Housing: House Alcohol intake: never Patient Tobacco Use Status: Never used Tobacco Smoked in Last 30 Days: No e-Cigarette/Vaping Use: Never Used Use of substances other than those prescribed or required for medical reasons: No Advance Directives: No Advance Directives Information Provided: Yes Patient : No service: No Current occupational status: employed Cognitive needs: No Hearing needs: No Vision needs: Yes Physical Exam ED Vital Signs: Vital Signs - 24 hr 04/16/23 21:30 04/17/23 00:22 Temperature 99.3 F 99.0 F Pulse Rate 115 H 101 H Respiratory Rate 20 14 Blood Pressure 123/76 107/76 Pulse Oximetry 98 99 Oxygen Delivery Method Room Air BMI result Body Mass Index 28.0 Appearance: Alert. Oriented X3. No acute distress. ENT: Pharynx erythema+. Oral Mucosa moist Neck: Normal inspection. Neck supple. CVS: Normal heart rate and rhythm. Pulses normal. Respiratory: No respiratory distress. Equal air entry bilateral, no wheezing/rales/rhonchi Abdomen: Soft and nontender. Bowel sounds are present, Skin: Skin warm and dry. Normal skin color. Normal skin turgor. Extremities: No lower extremity edema. No calf tenderness Neuro: Oriented X 3. Medications Administered Discontinued Medications Generic Name Dose Route Start Last Admin Trade Name Freq PRN Reason Stop Dose Admin Cefuroxime Axetil 500 mg 04/17/23 00:46 04/17/23 00:52 Cefuroxime Axetil 500 Mg Tablet PO 04/17/23 00:47 500 mg ONCE ONE Administration Ibuprofen 600 mg 04/17/23 00:45 04/17/23 00:52 Ibuprofen 600 Mg Tablet PO 04/17/23 00:46 600 mg ONCE ONE Administration Medical Decision Making Medical Decision Making MDM Narrative: Patient with leukocytosis with left shift COVID/RSV/influenza negative strep negative likely other bacterial infection discharge patient home on cefdinir and ibuprofen Lab Data MDM Lab Attestation statement: I reviewed the patient's lab results. 04/16/23 22:50 04/16/23 22:50 Labs: Lab Results 04/16/23 04/16/23 04/16/23 Range/Units 22:50 22:50 22:50 WBC 16.8 H (4.8-10.8) X10*3/uL RBC 4.68 (4.20-5.50) X10*6/uL Hgb 14.1 (12.0-16.0) g/dl Hct 42.1 (37.0-47.0) % MCV 90.0 (80.0-98.0) fL MCH 30.1 (27.0-33.0) pg MCHC 33.5 (31.0-35.0) g/dl RDW 12.5 (11.0-16.0) % Plt Count 309 (160-400) X10*3/uL MPV 9.4 (9.4-12.3) fL Immature Gran % (Auto) 0.7 H (0.0-0.4) % Neut % (Auto) 79.4 H (45-73) % Lymph % (Auto) 11.4 L (20-40) % Slope % (Auto) 7.8 (2-11) % Eos % (Auto) 0.2 (0-4) % Baso % (Auto) 0.5 (0-2) % Lymph # (Auto) 1.9 (1.2-4.9) X10*3/uL Slope # (Auto) 1.3 H (0.1-1.2) X10*3/uL Eos # (Auto) 0.0 (0.0-0.4) X10*3/uL Baso # (Auto) 0.1 (0.0-0.2) X10*3/uL Abs Immat Gran (auto) 0.11 H (0.00-0.03) X10*3/uL Absolute Neuts (auto) 13.4 H (2.0-8.3) x10*3/uL Absolute Nucleated RBC 0.000 (0.0-0.012) X10*3/uL Nucleated RBC % (auto) 0.0 (0.0-0.2) /100WBC Sodium 137 (135-145) mmol/L Potassium 3.9 (3.3-5.1) mmol/L Chloride 103 (96-108) mmol/L Carbon Dioxide 23 (22-29) mmol/L Anion Gap 15 (12-20) BUN 10 (9-16) mg/dL Creatinine 0.95 (0.5-1.4) mg/dL Estim Creat Clear Calc 89.2 Estimated GFR > 60 Random Glucose 103 (60-115) mg/dL Calcium 9.9 (8.4-10.2) mg/dL Total Bilirubin 0.8 (0.0-1.0) mg/dL AST 16 (5-31) U/L ALT 21 (0-31) U/L Alkaline Phosphatase 84 (39-117) U/L Total Protein 8.4 H (6.5-8.0) g/dL Albumin 4.4 (3.5-5.0) g/dL Urine Color Urine Appearance Urine pH (5.0-9.0) Ur Specific [place] (1.005-1.025) Urine Protein (Neg-Trace) mg/dL Urine Glucose (UA) (Negative) mg/dL Urine Ketones (Negative) mg/dL Urine Blood (Negative) Urine Nitrite (Negative) Ur Leukocyte Esterase (Negative) Urine RBC (0-2) /HPF Urine WBC (0-5) /HPF Ur Squamous Epith Cells (0-2) /HPF Urine Bacteria (None Seen) Hyaline Casts (0-2) /LPF Influenza Type A (PCR) NEGATIVE (Negative) Influenza Type B (PCR) NEGATIVE (Negative) RSV RNA Qual (PCR) NEGATIVE (Negative) SARS-CoV-2 RNA (RT-PCR) NEGATIVE (Negative) S. pyogenes GrpA JON (Negative) 04/17/23 04/17/23 Range/Units 00:27 00:58 WBC (4.8-10.8) X10*3/uL RBC (4.20-5.50) X10*6/uL Hgb (12.0-16.0) g/dl Hct (37.0-47.0) % MCV (80.0-98.0) fL MCH (27.0-33.0) pg MCHC (31.0-35.0) g/dl RDW (11.0-16.0) % Plt Count (160-400) X10*3/uL MPV (9.4-12.3) fL Immature Gran % (Auto) (0.0-0.4) % Neut % (Auto) (45-73) % Lymph % (Auto) (20-40) % Slope % (Auto) (2-11) % Eos % (Auto) (0-4) % Baso % (Auto) (0-2) % Lymph # (Auto) (1.2-4.9) X10*3/uL Slope # (Auto) (0.1-1.2) X10*3/uL Eos # (Auto) (0.0-0.4) X10*3/uL Baso # (Auto) (0.0-0.2) X10*3/uL Abs Immat Gran (auto) (0.00-0.03) X10*3/uL Absolute Neuts (auto) (2.0-8.3) x10*3/uL Absolute Nucleated RBC (0.0-0.012) X10*3/uL Nucleated RBC % (auto) (0.0-0.2) /100WBC Sodium (135-145) mmol/L Potassium (3.3-5.1) mmol/L Chloride (96-108) mmol/L Carbon Dioxide (22-29) mmol/L Anion Gap (12-20) BUN (9-16) mg/dL Creatinine (0.5-1.4) mg/dL Estim Creat Clear Calc Estimated GFR Random Glucose (60-115) mg/dL Calcium (8.4-10.2) mg/dL Total Bilirubin (0.0-1.0) mg/dL AST (5-31) U/L ALT (0-31) U/L Alkaline Phosphatase (39-117) U/L Total Protein (6.5-8.0) g/dL Albumin (3.5-5.0) g/dL Urine Color Yellow Urine Appearance Clear Urine pH 6.5 (5.0-9.0) Ur Specific [place] 1.025 (1.005-1.025) Urine Protein Trace (Neg-Trace) mg/dL Urine Glucose (UA) Negative (Negative) mg/dL Urine Ketones 15 (Negative) mg/dL Urine Blood Negative (Negative) Urine Nitrite Negative (Negative) Ur Leukocyte Esterase Trace H (Negative) Urine RBC 3-5 H (0-2) /HPF Urine WBC 0-5 (0-5) /HPF Ur Squamous Epith Cells 6-10 (0-2) /HPF Urine Bacteria Trace (None Seen) Hyaline Casts 0-2 (0-2) /LPF Influenza Type A (PCR) (Negative) Influenza Type B (PCR) (Negative) RSV RNA Qual (PCR) (Negative) SARS-CoV-2 RNA (RT-PCR) (Negative) S. pyogenes GrpA JON Negative (Negative) Discharge Plan Discharge Clinical Impression: Pharyngitis Patient Disposition: Home, Self-Care Instructions: Pharyngitis (ED) Additional Instructions: Take antibiotics as prescribed Drink plenty of fluids Ibuprofen for pain and fever Prescriptions: New cefdinir 300 mg capsule 300 mg PO BID Qty: 14 0RF ibuprofen 600 mg tablet 600 mg PO Q6H PRN (Reason: fever or pain) Qty: 30 0RF No Action fluoxetine 40 mg capsule 40 mg PO DAILY 90 Days Qty: 90 1RF lorazepam 1 mg tablet 1 mg PO DAILY PRN (Reason: anxiety) 14 Days Qty: 14 0RF Tylenol Extra Strength 500 mg powder in packet 1,000 mg PO Q6H PRN albuterol sulfate [ProAir HFA] 90 mcg/actuation HFA aerosol inhaler 1 puff inhalation Q6H Stand Alone Forms: Work/School Release
== END 2023-04-17 01:51 | disposition home or self-care (01) ==
PROVIDERS: Emergency Provider Internal Medicine; PCP Internal Medicine
DX: J02.9 Acute pharyngitis, unspecified (principal); R50.9 Fever, unspecified; R11.2 Nausea with vomiting, unspecified; R05.9 Cough, unspecified; Z20.822 Contact with and (suspected) exposure to COVID-19
CPT/HCPCS: 0241U; 36415; 80053; 81001; 85025; 87651; 99283; 99284

== ENCOUNTER 2023-07-03 08:03 | Outpatient (AMB) | payer OTHER, SELFPAY ==
[2023-07-03 08:05] VITALS: BP 110/68; PULSE 80; TEMP 36.6; O2SAT 98; BMI 27.3
--- NOTE | 2023-07-03 08:05 | AM.OFFWIN_ITS ---
Intake Vital Signs 07/03/23 08:05 Height 5 ft 5 in Weight 164 lb BMI 27.3 BP 110/68 Blood Pressure Location Rt brachial Position Sitting Pulse 80 Pulse Source Pulse Oximeter Temp 97.8 F Temp Source Temporal Artery Scan Pulse Oximetry (%) 98 Intake Visit Reasons: EST/nausea dizzy/anxiety Intake Note: pt is here for c/o nausea, dizziness, anxiety. patient is primaerely here due to her anxiety, she states she becomes very debilitaing Patient Tobacco Use Status: Never used Tobacco Allergies amoxicillin [AMOXICILLIN] Allergy (Unknown, Verified 07/03/23 09:02) Rash Penicillins [PENICILLINS] Allergy (Unknown, Verified 07/03/23 09:02) Rash Medication List - Last Reconciled 07/03/23 by Jose Eduardo Méndez MD acetaminophen (Tylenol Extra Strength) 1,000 mg PO Q6H PRN albuterol sulfate 90 mcg/actuation (ProAir HFA) 1 puff inhalation Q6H cefdinir 300 mg PO BID fluoxetine 40 mg PO DAILY 90 days ibuprofen 600 mg PO Q6H PRN lorazepam 1 mg PO DAILY PRN 14 days Do you need a note to return to daycare/school/sports/work: Yes HPI EST/nausea dizzy/anxiety HPI Details 28-year-old female presents to the [facility] for a sick visit. Patient had breast reduction surgery on 06/21/2023. Subsequently she is complaining of nausea, increase in anxiety. She is on Prozac. She had called her primary care provider wanted her to be evaluated in the walk-in. No vomiting. Able to function and do her activities of daily living. [facility] Medical History Generalized anxiety disorder IBS (irritable bowel syndrome) Large breasts Mild intermittent asthma Upper back pain, chronic Vitamin D deficiency Surgical History History of wisdom tooth extraction Family History Father Diabetes mellitus HTN (hypertension) Stroke Back problem Kidney stone Mental health disorder Mother Anxiety Ovarian cyst Mental health disorder Maternal Grandmother Unknown family medical history Maternal Grandfather Unknown family medical history Paternal Grandmother Unknown family medical history Alzheimer's disease Paternal Grandfather Unknown family medical history Brother No problems noted. Brother No problems noted. Brother No problems noted. Sister No problems noted. Sister No problems noted. Sister No problems noted. Sister No problems noted. Social History Household Members: Family Housing: House Alcohol intake: never Patient Tobacco Use Status: Never used Tobacco e-Cigarette/Vaping Use: Never Used service: No Current occupational status: employed Cognitive needs: No Hearing needs: No Vision needs: Yes Physical Exam Vital Signs: Last Vital Signs Temp 97.8 F 07/03/23 08:05 Pulse 80 07/03/23 08:05 BP 110/68 07/03/23 08:05 Pulse Ox 98 07/03/23 08:05 BMI result Body Mass Index 27.3 Const General: cooperative and healthy appearing Nutritional Appearance: well nourished Orientation/consciousness: patient oriented x3 Limitations: no limitations HEENT Head: Yes normal to inspection Eyes General: appearance normal, both eyes and all related structures Neck Neck: Yes normal visual inspection Chest Chest palpation & inspection: normal palpation of entire chest wall Resp Effort & Inspection: normal respiratory effort Neuro General: patient oriented x3 Assessment & Plan Assessment & Plan (1) Nausea: Code(s): R11.0 - Nausea Plan: Blood work has been ordered. Will call with results and forwarded to the PCP. Orders: Orders Basic Metabolic Panel Today R11.0 - Nausea Complete Blood Count no Diff Today R11.0 - Nausea Lipid Panel Today R11.0 - Nausea Liver Panel Today R11.0 - Nausea Thyroid Stimulating Hormone Today R11.0 - Nausea Coding Level of Care Code Est Pt Level 3 (80650) Diagnoses Nausea R11.0
== END 2023-07-03 09:41 | disposition home or self-care (01) ==
PROVIDERS: PCP Internal Medicine; Visit Provider Internal Medicine
DX: R11.0 Nausea (principal)
CPT/HCPCS: 99213

== ENCOUNTER 2023-07-03 08:32 | Outpatient (REF) | payer OTHER, SELFPAY ==
[2023-07-03 11:49] LABS: Hematocrit 40.4 % (37.0-47.0); Hemoglobin 13.5 g/dl (12.0-16.0); Mean Corpuscular HGB Conc 33.4 g/dl (31.0-35.0); Mean Corpuscular Hemoglobin 30.3 pg (27.0-33.0); Mean Corpuscular Volume 90.6 fL (80.0-98.0); Mean Platelet Volume 9.5 fL (9.4-12.3); Platelet Count 386 X10*3/uL (160-400); Red Blood Count 4.46 X10*6/uL (4.20-5.50); Red Cell Distribution Width 11.9 % (11.0-16.0)
[2023-07-03 12:35] LABS: Alanine Aminotransferase 22 U/L (0-31); Albumin Level 4.2 g/dL (3.5-5.0); Alkaline Phosphatase 69 U/L (39-117); Anion Gap 13 (12-20); Aspartate Amino Transferase 15 U/L (5-31); Bilirubin Direct 0.1 mg/dL (0.0-0.5); Bilirubin Total 0.4 mg/dL (0.0-1.0); Blood Urea Nitrogen 10 mg/dL (9-16); Calcium 9.6 mg/dL (8.4-10.2); Carbon Dioxide 27 mmol/L (22-29); Chloride 102 mmol/L (96-108); Cholesterol 219 mg/dL (<200); Estimated Glomerular Filt Rate > 60; Glucose Random 85 mg/dL (60-115); HDL Cholesterol 38 mg/dL (>40); Sodium 138 mmol/L (135-145); Total Protein 7.9 g/dL (6.5-8.0); Triglycerides 437 mg/dL (<150)
[2023-07-03 12:51] LABS: Thyroid Stimulating Hormone 1.76 uIU/mL (0.32-4.0)
== END 2023-07-03 08:33 | disposition home or self-care (01) ==
LOC: HO.HMGCLDS 08:32
PROVIDERS: PCP Internal Medicine; Visit Provider Internal Medicine
DX: R11.0 Nausea (principal)
CPT/HCPCS: 36415; 80048; 80061; 80076; 84443; 85027

== ENCOUNTER 2023-11-09 20:27 | Emergency (ER) | payer OTHER, SELFPAY ==
--- NOTE | ~2023-11-09 | XR_ITS ---
EXAMINATION: XR CHEST CLINICAL INFORMATION: Cough COMPARISON: None available. TECHNIQUE: Frontal view of the chest was obtained. FINDINGS: No significant abnormality is noted involving the heart, lungs, mediastinum, bony thorax or soft tissues. XR/XR chest 1V IMPRESSION: Unremarkable examination.
[2023-11-09 21:59] VITALS: BP 121/73; PULSE 110; RESP 20; TEMP 37.6; O2SAT 98; BMI 27.0
[2023-11-09 22:25] LABS: MANUAL DIFF FLAG NO
[2023-11-09 22:27] LABS: Basophils Absolute Auto 0.1 X10*3/uL (0.0-0.2); Eosinophils Absolute Auto 0.1 X10*3/uL (0.0-0.4); Eosinophils Percent Auto 0.7 % (0-4); Hematocrit 39.8 % (37.0-47.0); Hemoglobin 13.8 g/dl (12.0-16.0); Imm Gran Abs Auto 0.07 X10*3/uL (0.00-0.03); Imm Gran Pct Auto 0.7 % (0.0-0.4); Lymphocytes Absolute Auto 0.8 X10*3/uL (1.2-4.9); Mean Corpuscular HGB Conc 34.7 g/dl (31.0-35.0); Mean Corpuscular Hemoglobin 30.5 pg (27.0-33.0); Mean Corpuscular Volume 87.9 fL (80.0-98.0); Mean Platelet Volume 9.1 fL (9.4-12.3); Monocytes Percent Auto 9.7 % (2-11); Neutrophils Absolute Auto 8.3 x10*3/uL (2.0-8.3); Neutrophils Percent Auto 79.9 % (45-73); Platelet Count 291 X10*3/uL (160-400); Red Blood Count 4.53 X10*6/uL (4.20-5.50); Red Cell Distribution Width 11.9 % (11.0-16.0); White Blood Count 10.4 X10*3/uL (4.8-10.8)
[2023-11-09 22:32] VITALS: BP 112/60; PULSE 112; RESP 17; TEMP 37.1; O2SAT 99
[2023-11-09 22:38] LABS: IDNOW Serial# 6674DD1D; Strep A Nucleic Acid Negative (Negative)
--- NOTE | 2023-11-09 22:38 | ED.URI ---
HPI - URI/Sore Throat General Chief Complaint: Upper Respiratory Symptoms Stated Complaint: body aches, sore throat stuffed nose Time Seen by Provider: 11/09/23 22:30 Source: patient Mode of arrival: ambulatory Limitations: no limitations History of Present Illness HPI Narrative: patient comes to the emergency room complaining of nasal congestion, cough, diffuse body aches, fever , bilateral ear muffling without pain for 2 days. Patient denies nausea vomiting diarrhea. Patient denies any sick contacts. Related Data Home Medications Medication Instructions Recorded Confirmed albuterol sulfate 90 mcg/actuation 1 puff inhalation Q6H 07/24/22 11/15/22 aerosol inhaler (ProAir HFA) acetaminophen 500 mg oral powder 1,000 mg PO Q6H PRN 11/16/22 packet (Tylenol Extra Strength) Previous Rx's Medication Instructions Recorded fluoxetine 40 mg capsule 40 mg PO DAILY 90 days #90 caps 10/11/22 lorazepam 1 mg tablet 1 mg PO DAILY PRN anxiety 14 days 12/12/22 #14 tabs cefdinir 300 mg capsule 300 mg PO BID #14 caps 04/17/23 ibuprofen 600 mg tablet 600 mg PO Q6H PRN fever or pain 04/17/23 #30 tabs acetaminophen 500 mg capsule 500 mg PO Q6H PRN fever or pain 11/09/23 #14 caps ibuprofen 600 mg tablet 600 mg PO Q8H PRN fever or pain 11/09/23 #14 tabs Allergies Allergy/AdvReac Type Severity Reaction Status Date / Time amoxicillin [AMOXICILLIN] Allergy Unknown Rash Verified 11/09/23 21:59 Penicillins [PENICILLINS] Allergy Unknown Rash Verified 11/09/23 21:59 Review of Systems Review of Systems: Constitutional : No Weight loss, complaining of fever and chillsNo Night Sweats, complaining of fatigue and generalized malaise ENT/Mouth : complaining of bilateral hearing muffled sounds, no ear pain, no discharge, stuffy nose, No Sinus Pain, No Hoarseness, mild sore throat, No Rhinorrhea, No Swallowing Difficulty Eyes: No Eye Pain, No Swelling, No Redness, No Foreign Body, No Discharge, No Vision Changes Cardiovascular : No Chest Pain, No SOB, No Dyspnea on Exertion, No Orthopnea, No Edema, No Palpitations Respiratory : No Cough, No Sputum, No Wheezing, No Smoke Exposure, No Dyspnea Gastrointestinal : No Nausea, No Vomiting, No Diarrhea, No Constipation, No abdominal Pain, No Hematochezia, No Melena Genitourinary : no irregular bleeding, No Dysuria, No Urinary Frequency, No Hematuria, No Urinary Incontinence, No Urgency, No Flank Pain, No Urinary Flow Changes, No Hesitancy Musculoskeletal : No joint pain, No Myalgias, No Joint Swelling Skin : No Skin Lesions, No rash Neuro : No Weakness, No Numbness, No Paresthesias, No Loss of Consciousness, No Dizziness, No Headache Psych : No Anxiety/Panic, No Depression, No SI/HI/AH/VH, No Social Issues, Heme/Lymph: No Bruising, No Bleeding,No Lymphadenopathy Endocrine : No Polyuria, No Polydipsia, No Temperature Intolerance [facility] Past Medical History Medical History Large breasts Upper back pain, chronic Vitamin D deficiency Generalized anxiety disorder Mild intermittent asthma IBS (irritable bowel syndrome) Surgical History History of wisdom tooth extraction Family History Family History Father Diabetes mellitus HTN (hypertension) Stroke Back problem Kidney stone Mental health disorder Mother Anxiety Ovarian cyst Mental health disorder Maternal Grandmother Unknown family medical history Maternal Grandfather Unknown family medical history Paternal Grandmother Unknown family medical history Alzheimer's disease Paternal Grandfather Unknown family medical history Brother No problems noted. Brother No problems noted. Brother No problems noted. Sister No problems noted. Sister No problems noted. Sister No problems noted. Sister No problems noted. Social History Social History Household Members: Family Housing: House Alcohol intake: never Patient Tobacco Use Status: Never used Tobacco e-Cigarette/Vaping Use: Never Used Advance Directives: No Advance Directives Information Provided: No service: No Current occupational status: employed Cognitive needs: No Hearing needs: No Vision needs: Yes Physical Exam Vital Signs: Vital Signs: Last Vital Signs Temp 98.1 F 11/09/23 22:57 Pulse 114 H 11/09/23 22:57 Resp 17 01/26/24 22:57 BP 132/80 11/09/23 22:57 Pulse Ox 100 11/09/23 22:57 O2 Del Method Room Air 11/09/23 22:57 BMI result Body Mass Index 27.0 Const: Other: Appearance: Alert. Oriented X3. No acute distress. Eyes: Pupils equal, round and reactive to light. ENT: Pharynx normal. nasal congestion Neck: Normal inspection. Neck supple. No lymph nodes noted. No crepitus CVS: Normal heart rate and rhythm. Pulses normal. Normal S1 and S2 Respiratory: No respiratory distress. Breath sounds normal. No Wheezing. No rales Abdomen: Soft and nontender. No rigidity. No distention. Skin: Skin warm and dry. Normal skin color. Normal skin turgor. Extremities: No lower extremity edema. No Lacerations. No Rash Neuro: Oriented X 3. No motor deficit. No sensory deficit. Moving all extremities. No slurred speech. CN 2 through 12 grossly intact Psych: calm, cooperative, normal affect Medical Decision Making Medical Decision Making [facility] Narrative: - my interpretation of labs: Hematology within normal limits, baseline, chemistry within normal limits no abnormalities, serology negative for strep, negative for COVID and influenza, patient likely having a viral syndrome Differential Diagnosis Differential Diagnoses: The differential diagnosis associated with the presentation includes ( as above) Lab Data [facility] Lab Attestation statement: I reviewed the patient's lab results. 11/09/23 22:20 11/09/23 22:20 Labs: Lab Results 11/09/23 11/09/23 Range/Units 22:19 22:20 WBC 10.4 (4.8-10.8) X10*3/uL RBC 4.53 (4.20-5.50) X10*6/uL Hgb 13.8 (12.0-16.0) g/dl Hct 39.8 (37.0-47.0) % MCV 87.9 (80.0-98.0) fL MCH 30.5 (27.0-33.0) pg MCHC 34.7 (31.0-35.0) g/dl RDW 11.9 (11.0-16.0) % Plt Count 291 (160-400) X10*3/uL MPV 9.1 L (9.4-12.3) fL Immature Gran % (Auto) 0.7 H (0.0-0.4) % Neut % (Auto) 79.9 H (45-73) % Lymph % (Auto) 8.0 L (20-40) % [place] % (Auto) 9.7 (2-11) % Eos % (Auto) 0.7 (0-4) % Baso % (Auto) 1.0 (0-2) % Lymph # (Auto) 0.8 L (1.2-4.9) X10*3/uL [place] # (Auto) 1.0 (0.1-1.2) X10*3/uL Eos # (Auto) 0.1 (0.0-0.4) X10*3/uL Baso # (Auto) 0.1 (0.0-0.2) X10*3/uL Abs Immat Gran (auto) 0.07 H (0.00-0.03) X10*3/uL Absolute Neuts (auto) 8.3 (2.0-8.3) x10*3/uL Absolute Nucleated RBC 0.000 (0.0-0.012) X10*3/uL Nucleated RBC % (auto) 0.0 (0.0-0.2) /100WBC Sodium 139 (135-145) mmol/L Potassium 4.1 (3.3-5.1) mmol/L Chloride 104 (96-108) mmol/L Carbon Dioxide 23 (22-29) mmol/L Anion Gap 16 (12-20) BUN 9 (9-16) mg/dL Creatinine 1.02 (0.5-1.4) mg/dL Estim Creat Clear Calc 84.7 Estimated GFR > 60 Random Glucose 94 (60-115) mg/dL Calcium 10.0 (8.4-10.2) mg/dL Total Bilirubin 0.4 (0.0-1.0) mg/dL AST 16 (5-31) U/L ALT 20 (0-31) U/L Alkaline Phosphatase 76 (39-117) U/L Total Protein 8.4 H (6.5-8.0) g/dL Albumin 4.5 (3.5-5.0) g/dL COVID-19 (JUAN) Negative (Negative) COVID-19 Clin Com See Note Influenza Type A (JON) Negative (Negative) Influenza Type B (JON) Negative (Negative) Influenza A & B Note See Note S. pyogenes GrpA JON Negative (Negative) Discharge Plan Discharge Clinical Impression: Acute viral syndrome Patient Disposition: Home, Self-Care Instructions: Viral Syndrome (ED) Additional Instructions: You tested negative for influenza, COVID and strep. Please follow-up with your primary care physician tomorrow. If you have any worsening or new symptoms, please return to the emergency room or call 911 Prescriptions: New acetaminophen 500 mg capsule 500 mg PO Q6H PRN (Reason: fever or pain) Qty: 14 0RF ibuprofen 600 mg tablet 600 mg PO Q8H PRN (Reason: fever or pain) Qty: 14 0RF No Action fluoxetine 40 mg capsule 40 mg PO DAILY 90 Days Qty: 90 1RF lorazepam 1 mg tablet 1 mg PO DAILY PRN (Reason: anxiety) 14 Days Qty: 14 0RF cefdinir 300 mg capsule 300 mg PO BID Qty: 14 0RF ibuprofen 600 mg tablet 600 mg PO Q6H PRN (Reason: fever or pain) Qty: 30 0RF Tylenol Extra Strength 500 mg powder in packet 1,000 mg PO Q6H PRN albuterol sulfate [ProAir HFA] 90 mcg/actuation HFA aerosol inhaler 1 puff inhalation Q6H
[2023-11-09 22:41] LABS: Alanine Aminotransferase 20 U/L (0-31); Albumin Level 4.5 g/dL (3.5-5.0); Alkaline Phosphatase 76 U/L (39-117); Anion Gap 16 (12-20); Aspartate Amino Transferase 16 U/L (5-31); Bilirubin Total 0.4 mg/dL (0.0-1.0); Blood Urea Nitrogen 9 mg/dL (9-16); Carbon Dioxide 23 mmol/L (22-29); Chloride 104 mmol/L (96-108); Creatinine Clr Calc Pharmacy 84.7; Estimated Glomerular Filt Rate > 60; Glucose Random 94 mg/dL (60-115); Potassium 4.1 mmol/L (3.3-5.1); Sodium 139 mmol/L (135-145); Total Protein 8.4 g/dL (6.5-8.0)
[2023-11-09 22:50] LABS: IDNOW Serial# 16C4AD1C; IDNOW Serial# 55D5AD1C; Influenza A Negative (Negative); Influenza B2 Negative (Negative)
[2023-11-09 22:51] LABS: COVID-19 Test Negative (Negative)
[2023-11-09 22:55] VITALS: O2SAT 100
[2023-11-09 22:57] VITALS: BP 132/80; PULSE 114; RESP 17; TEMP 36.7; O2SAT 100
== END 2023-11-09 23:20 | disposition home or self-care (01) ==
PROVIDERS: Emergency Provider Emergency Medicine
DX: B34.9 Viral infection, unspecified (principal); J02.9 Acute pharyngitis, unspecified; Z11.52 Encounter for screening for COVID-19
CPT/HCPCS: 71045; 80053; 85025; 87502; 87635; 87651; 99283; 99284

== ENCOUNTER 2024-04-26 08:09 | Outpatient (REF) | payer OTHER, SELFPAY ==
[2024-04-26 11:26] LABS: Cholesterol 267 mg/dL (<200); HDL Cholesterol 47 mg/dL (>40); LDL Cholesterol Calculated 189 mg/dL (<100); Triglycerides 159 mg/dL (<150)
[2024-04-28 03:23] LABS: LDL Cholesterol Direct 216 mg/dL (<100)
== END 2024-04-26 08:10 | disposition home or self-care (01) ==
LOC: HO.HMGCLDS 08:09
PROVIDERS: PCP Internal Medicine; Visit Provider Internal Medicine
DX: E78.2 Mixed hyperlipidemia (principal)
CPT/HCPCS: 36415; 80061; 83721

== ENCOUNTER 2024-04-28 12:35 | Outpatient (AMB) | payer OTHER, SELFPAY ==
--- NOTE | 2024-04-28 12:40 | MHC.PC.OV ---
Vital Signs 04/28/24 12:42 Height 5 ft 6 in Weight 168 lb BMI 27.1 BP 108/74 Blood Pressure Location Rt brachial Pulse 82 Pulse Source Pulse Oximeter Pulse Oximetry (%) 98 Oxygen Delivery Method Room Air Intake Visit Reasons: Looking to go see a percussion instrument tuner Intake Note: Patient here for physical exam. Pap: has not had one done yet has appt 06/04 Allergies amoxicillin [AMOXICILLIN] Allergy (Unknown, Verified 05/04/24 22:01) Rash Penicillins [PENICILLINS] Allergy (Unknown, Verified 05/04/24 22:01) Rash Medication List - Last Reconciled 05/04/24 by Luisa Manriquez MD albuterol sulfate 90 mcg/actuation 1 puff inhalation Q6H PRN fluoxetine 20 mg PO DAILY fluoxetine 40 mg PO DAILY linaclotide (Linzess) 72 mcg PO DAILY lorazepam 1 mg PO DAILY PRN 14 days rosuvastatin 5 mg PO DAILY Tobacco use date assessed: 04/28/24 Dental Screening Dental Screen Date: 04/28/24 Did you have a dental visit in the last 12 months?: Yes Did you have a dental problem in the last 6 months where you did not have access to dental care?: No Was dental information given to patient?: Patient has dentist HPI Looking to go see a percussion instrument tuner HPI Details 29-year-old lady with history of mild intermittent asthma, generalized anxiety disorder with panic attacks, history of migraine, here today for physical exam. He currently sees psychiatrist for her anxiety disorder, currently on fluoxetine and takes lorazepam as needed for acute panic attacks. Asthma stable controlled, uses her albuterol inhaler only as needed. Complains of having difficulty moving her bowels, sometimes would only have a bowel movement once a week, and usually comes out small and round,. Has tried [id number] Colace, senna, MiraLax which affords only temporary relief PFSH Medical History Mixed dyslipidemia Upper back pain, chronic Vitamin D deficiency Generalized anxiety disorder Mild intermittent asthma IBS (irritable bowel syndrome) Surgical History Hx of breast reduction, elective History of wisdom tooth extraction Family History Father Diabetes mellitus HTN (hypertension) Stroke Back problem Kidney stone Mental health disorder Mother Anxiety Ovarian cyst Mental health disorder Maternal Grandmother Unknown family medical history Maternal Grandfather Unknown family medical history Paternal Grandmother Unknown family medical history Alzheimer's disease Paternal Grandfather Unknown family medical history Brother No problems noted. Brother No problems noted. Brother No problems noted. Sister No problems noted. Sister No problems noted. Sister No problems noted. Sister No problems noted. Social History Household Members: Family Housing: House Alcohol intake: never Patient Tobacco Use Status: Never used Tobacco e-Cigarette/Vaping Use: Never Used service: No Current occupational status: employed Cognitive needs: No Hearing needs: No Vision needs: Yes Questionnaire PHQ-9 Over the last 2 weeks, how often have you been bothered by any of the following problems? 1. Little interest or pleasure in doing things: several days 2. Feeling down, depressed, or hopeless: not at all 3. Trouble falling or staying asleep, or sleeping too much: several days 4. Feeling tired or having little energy: several days 5. Poor appetite or overeating: not at all 6. Feeling bad about yourself - or that you are a failure or have let yourself or your family down: not at all 7. Trouble concentrating on things, such as reading the newspaper or watching television: several days 8. Moving or speaking so slowly that other people could have noticed. Or the opposite - being so fidgety or restless that you have been moving around a lot more than usual: not at all 9. Thoughts that you would be better off or of hurting yourself in some way: not at all Total score: 4 Depression Screening Interpretation: Negative Depression Screening Done: Yes Source: Developed by Drs. Cristi Butt, Becka Hillman, Bernabe Ramirez and colleagues, with an educational hiram from [employer]. Thrive Questionnaire I am a: Patient What is your living situation today?: I have a steady place to live Within the past 12 months, did the food you bought not last and you didn't have the money to get more?: Never true Within the past 12 months, did you worry whether your food would run out before you got money to buy more?: Never true Do you have trouble paying for medicines?: No Do you have trouble getting transportation to medical appointments?: No Do you have trouble paying your heating and electricity bill?: No Do you have trouble taking care of your child, family member or friend?: No Do you have trouble with day-to-day activities such as bathing, preparing meals, shopping, managing finances, etc.?: No Are you currently unemployed and looking for a job?: No Are you interested in more education?: No Please select the resources that you would like help with: Housing/[facility] Currently or been in a relationship where the following occur: No concerns reported THRIVE Score: 0 AUDIT C Alcohol Use Questionnaire (AUDIT-C) 1. How often do you have a drink containing alcohol?: Monthly or less 2. How many drinks containing alcohol do you have on a typical day when you are drinking?: 1 or 2 3. How often do you have six or more drinks on one occasion?: Never Total Score: 1 RODOLFO-7 AMB Questionnaire RODOLFO-7 Date RODOLFO - 7 assessed: 07/24/22 Feeling nervous, anxious, or on edge: 2 = More than half the days Not being able to stop or control worryin = More than half the days Worrying too much about different things: 1 = Several days Trouble relaxin = Several days Being so restless that it is hard to sit still: 1 = Several days Becoming easily annoyed or irritable: 1 = Several days Feeling afraid as if something awful might happen: 0 = Not at all Total RODOLFO-7 score (0-4 normal; 5-9 mild; 10-14 moderate; 15-21 severe): 8 Source: Developed by Drs. Cristi Butt, Becka Hillman, Bernabe Ramirez and colleagues, with an educational hiram from [employer]. RODOLFO-7 Assessment Billing RODOLFO-7 Assessment Tool: RODOLFO-7 Assessment 21318 (Currently followed by psychiatry) ACT Questionnaire In the past 4 weeks, how much of the time did your asthma keep you from getting as much done at work, school or at home?: None of the time During the past 4 weeks, how often have you had shortness of breath?: 1-2 times a week During the past 4 weeks, how often did your asthma symptoms wake you up at night or earlier than usual in the morning?: Not at all During the past 4 weeks, how often have you had to use your rescue inhaler or nebulizer medication?: Once a week or less How would you rate your asthma control during the past 4 weeks?: Well controlled ACT Interpretation: Negative Score: 22 Review of Systems Const Denies fever(s) and Denies weakness Eyes Denies change in vision ENT Denies dizziness, Denies nasal congestion, Denies nasal discharge and Denies sore throat Card Denies chest pain, Denies lightheadedness, Denies palpitations and Denies dyspnea Resp Denies chest congestion, Denies cough and Denies dyspnea GI Denies abdominal pain, Denies melena, Reports bloating, Reports change in stool character, Reports constipation and Denies heartburn Reports no additional complaints Musc Reports as per HPI Skin/Breast Denies breast pain, Denies breast mass and Denies rash Neuro Denies dizziness and Denies weakness Psych Reports as per HPI Endo Denies polydipsia, Denies polyuria and Denies palpitations Omar/Lymph Reports no additional complaints Aller/Immun Denies seasonal rhinorrhea Physical exam (Primary Care) Vital Signs: Last Vital Signs Pulse 82 04/28/24 12:42 BP 108/74 04/28/24 12:42 Pulse Ox 98 04/28/24 12:42 Oxygen Delivery Method Room Air 04/28/24 12:42 BMI result Body Mass Index 27.1 Tobacco/Smoking Status: Tobacco use Status Tobacco use date assessed 04/28/24 04/28/24 12:45 Patient Tobacco Use Status Never used Tobacco 04/28/24 12:45 e-Cigarette/Vaping Use Never Used 04/28/24 12:45 PHQ-9: PHQ-9 Score PHQ-9: Total score 5 04/28/24 12:54 Depression Screening Interpretation: Negative Currently or been in a relationship where the following occur: No concerns reported Const Other: Alert oriented x3, no acute cardiorespiratory distress noted ambulatory normal gait Nutritional Appearance: overweight Orientation/consciousness: patient oriented x3 HENMT Ears: external ears normal, TM's normal bilaterally and EAC's normal General nose exam: Normal external nose present, Normal nares present and No nasal discharge present Eyes General: appearance normal, both eyes and all related structures Neck Neck: Yes normal visual inspection, Yes full ROM, Yes no lymphadenopathy, Yes supple and Yes prominent dorsocervical fat pad Chest Other: no mass palpated no nipple discharge Resp Auscultation: clear to auscultation bilaterally Cardio Other: S1-S2 present regular rate and GI Palpation (GI): Soft to palpation, nontender, no guarding and no masses Auscultation: normal bowel sounds General: Yes no CVA tenderness Back/Spine/Pelvis Back: no CVA tenderness Cervical Spine: cervical ROM normal Thoracic/Lumbar Spine: paraspinal muscle tenderness bilaterally in the upper thoracic and in the lower lumbar Skin General skin exam: no rashes or lesions noted Neuro General: patient oriented x3, gait normal, moves all extremities, no focal motor deficits and CN's II-XI intact bilaterally Extrem General: Yes full ROM and Yes normal gait Psych Appearance: grossly normal and well kempt Mental Status: mental status grossly normal Speech and movement: Normal speech and movement present Affect: normal affect Thought process: Normal thought process present Thought content: Normal thought content present Results Reviewed Results Reviewed: Name: Devi Magallanes Age/Sex: 29/F : 1995 Unit#: [id number] Attend Dr: Luisa Manriquez MD Re04/26/24 Status: DEP [facility]: SPEC : [id number] JOSI: 04/26/24 STATUS: COMP REQ : [id number] RECD: 04/26/[address]: Luisa Manriquez MD COMP: 04/26/24 ENTERED: 04/26/24 [facility]: ORDERED: Lipid Panel Test Result Flag Reference Triglyceride 159 H <150 mg/dL Desirable Triglyceride: less than 150 mg/dL Borderline High Triglyceride 150-199 mg/dL High Triglyceride: 200-499 mg/dL Very High Triglyceride: greater than or equal to 5OO mg/dL Cholesterol 267 H <200 mg/dL Desirable Cholesterol: less than 200 mg/dL Borderline High Cholesterol: 200-239 mg/dL High Cholesterol: greater than 239 mg/dL LDL Calculated 189 H <100 mg/dL Desirable LDL: less than 100 mg/dL Near Optimal/Above Optimal LDL: 110-129 mg/dL Borderline High LDL: 130-159 mg/dL High LDL: 160-189 mg/dL Very High LDL: greater than or equal to 190 mg/dL HDL 47 >40 mg/dL Desirable HDL: greater than 40 mg/dL Note: This HDL assay may give artificially low results in patients with liver disease. Assessment and Plan Assessment & Plan (1) Annual visit for general adult medical examination with abnormal findings: Code(s): Z00.01 - Encounter for general adult medical examination with abnormal findings Plan: Will check appropriate labs. Recommended dental visit every 6 months and regular eye exams, at least every 2 years. Take adequate calcium in diet and vitamin-D 3 at 2000 IU per cap once a day, in addition to weight-bearing exercises to help maintain good muscle tone and weight control. Instructed to do self-breast exam, and recommended to get yearly mammogram, starting at age 40. Reminded to get her yearly flu shot, and pneumonia vaccination up-to-date with Tdap does not want to get COVID booster. (2) Mixed dyslipidemia: Code(s): E78.2 - Mixed hyperlipidemia Plan: Results of recent fasting lab results reviewed with patient which showed elevated triglycerides and LDL cholesterol. Will start on rosuvastatin 5 mg once a day, reinforced importance of following a low-cholesterol diet and getting regular exercise. Referred to percussion instrument tuner for further dietary guidance (3) Family history of thyroid disease: Code(s): Z83.49 - Family history of other endocrine, nutritional and metabolic diseases Plan: Ordered a TSH with reflex free T4 on next lab draw (4) Mild intermittent asthma: Code(s): J45.20 - Mild intermittent asthma, uncomplicated Qualifiers: Asthma complication type: uncomplicated Qualified Code(s): J45.20 - Mild intermittent asthma, uncomplicated Plan: Continue with albuterol inhaler as needed for episodes of bronchospasm and wheezing. Reminded to get yearly flu shot, has had 1 COVID vaccine does not want to get booster, recommended swell to get pneumonia vaccine. (5) Generalized anxiety disorder: Code(s): F41.1 - Generalized anxiety disorder Plan: Currently followed by Psychiatry and therapist on fluoxetine and lorazepam as needed (6) Constipation: Code(s): K59.00 - Constipation, unspecified Plan: Will try on Linzess 72 mcg per capsule to take once a day. And recommended drink plenty of water, and increase dietary fiber intake. Call if no improvement of symptoms after 1 week after starting medication Orders: Orders Lipid Panel 04/26/24 E78.2 - Mixed hyperlipidemia LDL Cholesterol Direct 04/26/24 E78.2 - Mixed hyperlipidemia Alanine Aminotransferase 3 Months E78.2 - Mixed hyperlipidemia Lipid Panel 3 Months E78.2 - Mixed hyperlipidemia Aspartate Amino Transferase 3 Months E78.2 - Mixed hyperlipidemia Basic Metabolic Panel Fasting 3 Months E78.2 - Mixed hyperlipidemia Creatine Kinase Total 3 Months E78.2 - Mixed hyperlipidemia TSH reflex Free T4 04/28/24 E78.2 - Mixed hyperlipidemia, Z83.49 - Family history of other endocrine, nutritional and metabolic diseases Medications: New rosuvastatin 5 mg PO DAILY 30 tabs 5RF linaclotide (Linzess) 72 mcg PO DAILY 30 caps 0RF Changed From fluoxetine 40 mg PO DAILY 90 caps 1RF 90 days To fluoxetine 40 mg PO DAILY From albuterol sulfate 90 mcg/actuation (ProAir HFA) 1 puff inhalation Q6H To albuterol sulfate 90 mcg/actuation 1 puff inhalation Q6H PRN 8.5 grams 3RF Wheezing and bronchospasm Coding Level of Care Code Est Pt Prev Care 18-39y(21899) Diagnoses Annual visit for general adult medical examination with abnormal findings Z00.01 Mixed dyslipidemia E78.2 Family history of thyroid disease Z83.49 Mild intermittent asthma without complication J45.20 Asthma complication type: uncomplicated Generalized anxiety disorder F41.1 Constipation K59.00 Additional Codes RODOLFO-7 Assessment Billing - RODOLFO-7 Assessment Tool: RODOLFO-7 Assessment [id number] ([id number])
[2024-04-28 12:42] VITALS: BP 108/74; PULSE 82; O2SAT 98; BMI 27.1
== END 2024-04-28 13:16 | disposition home or self-care (01) ==
PROVIDERS: PCP Internal Medicine; Visit Provider Internal Medicine
DX: Z00.00 Encounter for general adult medical examination without abnormal findings (principal); E78.2 Mixed hyperlipidemia; Z83.49 Family history of other endocrine, nutritional and metabolic diseases; J45.20 Mild intermittent asthma, uncomplicated; F41.1 Generalized anxiety disorder; K59.00 Constipation, unspecified
CPT/HCPCS: 99214; 99395

== ENCOUNTER 2024-10-03 08:58 | Outpatient (AMB) | payer OTHER, SELFPAY ==
--- NOTE | 2024-10-03 09:03 | MHC.OFFWIV ---
Intake Vital Signs 10/03/24 09:04 Weight 174 lb BP 112/78 Blood Pressure Location Rt brachial Position Sitting Pulse 100 Pulse Source Pulse Oximeter Temp 98.2 F Temp Source Oral Pulse Oximetry (%) 97 Oxygen Delivery Method Room Air Intake Visit Reasons: EP cough, cold symptoms, bad headaches Intake Note: Patient here for cough, headaches for about 10 days. Patient Tobacco Use Status: Never used Tobacco Allergies amoxicillin [AMOXICILLIN] Allergy (Unknown, Verified 10/03/24 09:05) Rash Penicillins [PENICILLINS] Allergy (Unknown, Verified 10/03/24 09:05) Rash Do you need a note to return to daycare/school/sports/work: Yes HPI HPI Comments History of Present Illness Details History The patient is a 29-year-old female presenting with a persistent cough. The cough has been ongoing for approximately 10 days and is particularly severe at night, causing significant inconvenience. The patient denies any fever, though notes a minor sore throat accompanying the cough. She reports taking kaay-meo-fitkqum medications such as Tylenol, DayQuil, and Sudafed without relief of her symptoms. 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 She has a history of asthma but reports no noticeable shortness of breath or wheezing distinct from her usual state. There are no associated symptoms of significant throat soreness, ear pain, or sinus tenderness reported by the patient. Physical Exam General: Cooperative, healthy appearing, comfortable and no acute distress Orientation/consciousness: Patient oriented x3 Limitations: No limitations Head: Normal to inspection Ears: Hearing grossly normal bilaterally, external ears normal and TM's normal bilaterally Nose: Normal external nose present, Normal nares present and No nasal discharge present Face and sinus: Normal facial exam and Yes sinuses nontender Mouth: Normal oral and palatal mucosa present and moist mucous membranes Throat: Yes tonsils normal, Yes uvula midline. Posterior oropharynx erythema, no exudates noted Eyes: Appearance normal, both eyes and all related structures Neck: Normal visual inspection Respiratory: Clear to auscultation bilaterally. Normal respiratory effort, able to speak in complete sentences, Actively coughing, no respiratory distress, not tachypneic, no tripod positioning and no use of accessory muscles Cardiovascular: Regular rate and rhythm. Normal S1 and S2 Skin: No rashes or lesions noted Neuro: Patient oriented x3 Extremities: Normal to inspection and Yes no clubbing, cyanosis or edema [facility] Medical History (Updated 10/03/24 @ 09:16 by Evelin Mitchell PA-C) Constipation Mixed dyslipidemia Upper back pain, chronic Vitamin D deficiency Generalized anxiety disorder Mild intermittent asthma IBS (irritable bowel syndrome) Surgical History Hx of breast reduction, elective History of wisdom tooth extraction Family History Father Diabetes mellitus HTN (hypertension) Stroke Back problem Kidney stone Mental health disorder Mother Anxiety Ovarian cyst Mental health disorder Maternal Grandmother Unknown family medical history Maternal Grandfather Unknown family medical history Paternal Grandmother Unknown family medical history Alzheimer's disease Paternal Grandfather Unknown family medical history Brother No problems noted. Brother No problems noted. Brother No problems noted. Sister No problems noted. Sister No problems noted. Sister No problems noted. Sister No problems noted. Social History Household Members: Family Housing: House Alcohol intake: never Patient Tobacco Use Status: Never used Tobacco e-Cigarette/Vaping Use: Never Used service: No Current occupational status: employed Cognitive needs: No Hearing needs: No Vision needs: Yes Review of Systems Const All systems reviewed & are unremarkable except as noted in HPI and below Physical Exam Vital Signs: Last Vital Signs Temp 98.2 F 10/03/24 09:04 Pulse 111 H 10/03/24 09:04 BP 112/78 10/03/24 09:04 Pulse Ox 97 10/03/24 09:04 Oxygen Delivery Method Room Air 10/03/24 09:04 Assessment & Plan Assessment & Plan (1) Atypical pneumonia: Code(s): J18.9 - Pneumonia, unspecified organism Plan: - Prescribe a course of Azithromycin Z-Kj as initial treatment for suspected atypical pneumonia. - Provide Tessalon Perles for symptomatic relief of cough, advising usage primarily before bedtime to aid rest. - Advise the patient to maintain hydration and rest to support recovery. - Provide a work note as requested for the patient. Patient was informed and verbally consented to the use of an ambient scribe for clinic note documentation during this visit Medications: New azithromycin For 250 mg dose pack: take 500 mg today (day 1), then 250 mg for 4 days (days 2-5) PO 6 tabs 0RF benzonatate 200 mg PO TID PRN 14 caps 0RF cough Coding Level of Care Code Est Pt Level 3 (37080) Diagnoses Atypical pneumonia J18.9
[2024-10-03 09:04] VITALS: BP 112/78; PULSE 100; TEMP 36.8; O2SAT 97
== END 2024-10-03 09:48 | disposition home or self-care (01) ==
PROVIDERS: PCP Internal Medicine; Visit Provider Physician Assistant
DX: J18.9 Pneumonia, unspecified organism (principal)

== ENCOUNTER → 2024-10-03 08:58 | Outpatient (BNVA) | payer OTHER, SELFPAY | PROVIDERS: PCP Internal Medicine; Visit Provider Physician Assistant | DX: J18.9 Pneumonia, unspecified organism (principal) | CPT/HCPCS: 99212 ==

== ENCOUNTER 2024-10-09 09:09 | Outpatient (AMB) | payer OTHER, SELFPAY ==
--- NOTE | 2024-10-09 09:57 | MHC.OFFWIV ---
Intake Vital Signs 10/09/24 09:58 Weight 174 lb BP 116/70 Blood Pressure Location Lt brachial Position Sitting Pulse 92 Pulse Source Pulse Oximeter Temp 98.7 F Temp Source Oral Pulse Oximetry (%) 99 Oxygen Delivery Method Room Air Intake Visit Reasons: EP ?Walking pneumonia/finished meds Intake Note: Patient here for sore throat that has improved,fever, left ear pain that has been present since last week Patient Tobacco Use Status: Never used Tobacco Allergies amoxicillin [AMOXICILLIN] Allergy (Unknown, Verified 10/09/24 09:59) Rash Penicillins [PENICILLINS] Allergy (Unknown, Verified 10/09/24 09:59) Rash Do you need a note to return to daycare/school/sports/work: Yes HPI EP ?Walking pneumonia/finished meds HPI Details This note is constructed using voice recognition software. While every effort has been made to ensure accuracy, custom motorcycle painter errors may have been included. The patient is a 29 year old female who presents to the clinic today with ongoing cough, sore throat after treatment for atypical pneumonia. She reports that she had low-grade fever last night and 99.3, she took Tylenol. She has some shortness of breath and tightness chest. She is asthmatic, and uses her inhaler sparingly has not had to use it more with this. [facility] Medical History (Updated 10/03/24 @ 09:16 by Evelin Mitchell PA-C) Constipation Mixed dyslipidemia Upper back pain, chronic Vitamin D deficiency Generalized anxiety disorder Mild intermittent asthma IBS (irritable bowel syndrome) Surgical History Hx of breast reduction, elective History of wisdom tooth extraction Family History Father Diabetes mellitus HTN (hypertension) Stroke Back problem Kidney stone Mental health disorder Mother Anxiety Ovarian cyst Mental health disorder Maternal Grandmother Unknown family medical history Maternal Grandfather Unknown family medical history Paternal Grandmother Unknown family medical history Alzheimer's disease Paternal Grandfather Unknown family medical history Brother No problems noted. Brother No problems noted. Brother No problems noted. Sister No problems noted. Sister No problems noted. Sister No problems noted. Sister No problems noted. Social History Household Members: Family Housing: House Alcohol intake: never Patient Tobacco Use Status: Never used Tobacco e-Cigarette/Vaping Use: Never Used service: No Current occupational status: employed Cognitive needs: No Hearing needs: No Vision needs: Yes Review of Systems Const All systems reviewed & are unremarkable except as noted in HPI and below Physical Exam Vital Signs: Last Vital Signs Temp 98.7 F 10/09/24 09:58 Pulse 92 10/09/24 09:58 BP 116/70 10/09/24 09:58 Pulse Ox 99 10/09/24 09:58 Oxygen Delivery Method Room Air 10/09/24 09:58 Const General: cooperative, healthy appearing, comfortable and no acute distress Orientation/consciousness: patient oriented x3 Limitations: no limitations HEENT Head: Yes normal to inspection Ears: hearing grossly normal bilaterally, external ears normal and TM's normal bilaterally General nose exam: Normal external nose present, Normal nares present and No nasal discharge present Face and sinus: Yes normal facial exam and Yes sinuses nontender Mouth: Normal oral and palatal mucosa present and moist mucous membranes Throat: Yes tonsils normal, Yes uvula midline and Yes posterior oropharynx abnormal (Erythema) Eyes General: appearance normal, both eyes and all related structures Neck Neck: Yes normal visual inspection Resp Effort & Inspection: normal respiratory effort, able to speak in complete sentences, Actively coughing, no respiratory distress, not tachypneic, no tripod positioning and no use of accessory muscles Auscultation: clear to auscultation bilaterally (But slightly tight sounding) Cardio Jugular venous distension: no JVD Rate: regular rate Rhythm: regular rhythm Heart sounds: S1 normal heart sound present, S2 normal heart sound present, no click, no gallops, no murmurs and no rubs Skin General skin exam: no rashes or lesions noted, elasticity normal and turgor normal Neuro General: patient oriented x3 Extrem General: Yes normal to inspection and Yes no clubbing, cyanosis or edema Assessment & Plan Assessment & Plan (1) Asthma exacerbation: Code(s): J45.901 - Unspecified asthma with (acute) exacerbation Qualifiers: Asthma severity: mild Asthma persistence: intermittent Qualified Code(s): J45.21 - Mild intermittent asthma with (acute) exacerbation Plan: Advised use of albuterol inhaler as needed. Prednisone burst prescribed for symptomatic management. Likely post induced. Advised follow up as needed with worsening or failure to resolve. Plan See above for full details and plan. Medications: New prednisone 40 mg (2 x 20 mg) PO DAILY 5 days 10 tabs 0RF Coding Level of Care Code Est Pt Level 3 (61071) Diagnoses Mild intermittent asthma with exacerbation J45.21 Asthma severity: mild Asthma persistence: intermittent
[2024-10-09 09:58] VITALS: BP 116/70; PULSE 92; TEMP 37.1; O2SAT 99
== END 2024-10-09 10:40 | disposition home or self-care (01) ==
PROVIDERS: PCP Internal Medicine; Visit Provider Registered Nurse
DX: J45.21 Mild intermittent asthma with (acute) exacerbation (principal)

== ENCOUNTER → 2024-10-09 09:09 | Outpatient (BNVA) | payer OTHER, SELFPAY | PROVIDERS: PCP Internal Medicine; Visit Provider Registered Nurse | DX: J45.21 Mild intermittent asthma with (acute) exacerbation (principal) | CPT/HCPCS: 99212 ==

== ENCOUNTER 2024-10-31 12:55 | Outpatient (AMB) | payer OTHER, SELFPAY ==
--- NOTE | 2024-10-31 12:53 | A.OFFPC_ITS ---
Intake Visit Reasons: Discuss weight loss options Intake Note: Pt is having a telehealth visit to discuss weigh loss options Allergies amoxicillin [AMOXICILLIN] Allergy (Unknown, Verified 10/31/24 13:05) Rash Penicillins [PENICILLINS] Allergy (Unknown, Verified 10/31/24 13:05) Rash Medication List - Last Reconciled 10/31/24 by Luisa Manriquez MD albuterol sulfate 90 mcg/actuation 1 puff inhalation Q6H PRN lorazepam 1 mg PO DAILY PRN 14 days Tobacco use date assessed: 10/31/24 Dental Screening Dental Screen Date: 10/31/24 Did you have a dental visit in the last 12 months?: Yes Did you have a dental problem in the last 6 months where you did not have access to dental care?: No Was dental information given to patient?: Patient has dentist HPI Discuss weight loss options HPI Details 29-year-old lady here today to discuss w eight loss options. She has been actively dieting and has been getting regular exercise but does not seem to be able to lose significant weight . Would like to try weight loss medications for additional help. [facility] Medical History (Updated 11/03/24 @ 03:17 by Luisa Manriquez MD) Overweight (BMI 25.0-29.9) Hx of anxiety disorder Constipation Mixed dyslipidemia Upper back pain, chronic Vitamin D deficiency Mild intermittent asthma IBS (irritable bowel syndrome) Surgical History Hx of breast reduction, elective History of wisdom tooth extraction Family History Father Diabetes mellitus HTN (hypertension) Stroke Back problem Kidney stone Mental health disorder Mother Anxiety Ovarian cyst Mental health disorder Maternal Grandmother Unknown family medical history Maternal Grandfather Unknown family medical history Paternal Grandmother Unknown family medical history Alzheimer's disease Paternal Grandfather Unknown family medical history Brother No problems noted. Brother No problems noted. Brother No problems noted. Sister No problems noted. Sister No problems noted. Sister No problems noted. Sister No problems noted. Social History Household Members: Family Housing: House Alcohol intake: never Patient Tobacco Use Status: Never used Tobacco e-Cigarette/Vaping Use: Never Used service: No Current occupational status: employed Cognitive needs: No Hearing needs: No Vision needs: Yes Questionnaire PHQ-9 Over the last 2 weeks, how often have you been bothered by any of the following problems? 1. Little interest or pleasure in doing things: not at all 2. Feeling down, depressed, or hopeless: not at all 3. Trouble falling or staying asleep, or sleeping too much: not at all 4. Feeling tired or having little energy: not at all 5. Poor appetite or overeating: not at all 6. Feeling bad about yourself - or that you are a failure or have let yourself or your family down: not at all 7. Trouble concentrating on things, such as reading the newspaper or watching television: not at all 8. Moving or speaking so slowly that other people could have noticed. Or the opposite - being so fidgety or restless that you have been moving around a lot more than usual: not at all 9. Thoughts that you would be better off or of hurting yourself in some way: not at all Total score: 0 Depression Screening Interpretation: Negative Depression Screening Done: Yes 42932 - PHQ-9 Billing: Yes Source: Developed by Drs. Cristi Butt, Becka Hillman, Bernabe Ramirez and colleagues, with an educational hiram from [employer]. Thrive Questionnaire Date Thrive assessed: 10/31/24 I am a: Patient What is your living situation today?: I have a steady place to live Within the past 12 months, did the food you bought not last and you didn't have the money to get more?: Never true Within the past 12 months, did you worry whether your food would run out before you got money to buy more?: Never true Do you have trouble paying for medicines?: No Do you have trouble getting transportation to medical appointments?: No Do you have trouble paying your heating and electricity bill?: No Do you have trouble taking care of your child, family member or friend?: No Do you have trouble with day-to-day activities such as bathing, preparing meals, shopping, managing finances, etc.?: No Are you currently unemployed and looking for a job?: No Are you interested in more education?: No Please select the resources that you would like help with: None Currently or been in a relationship where the following occur: No concerns reported THRIVE Score: 0 AUDIT C Alcohol Use Questionnaire (AUDIT-C) 1. How often do you have a drink containing alcohol?: Monthly or less 2. How many drinks containing alcohol do you have on a typical day when you are drinking?: 1 or 2 3. How often do you have six or more drinks on one occasion?: Never Total Score: 1 RODOLFO-7 AMB Questionnaire RODOLFO-7 Date RODOLFO - 7 assessed: 10/31/24 Feeling nervous, anxious, or on edge: 0 = Not at all Not being able to stop or control worryin = Not at all Worrying too much about different things: 0 = Not at all Trouble relaxin = Not at all Being so restless that it is hard to sit still: 0 = Not at all Becoming easily annoyed or irritable: 0 = Not at all Feeling afraid as if something awful might happen: 0 = Not at all Total RODOLFO-7 score (0-4 normal; 5-9 mild; 10-14 moderate; 15-21 severe): 0 Source: Developed by Drs. Cristi Butt, Becka Hillman, Bernabe Ramirez and colleagues, with an educational hiram from [employer]. RODOLFO-7 Assessment Billing RODOLFO-7 Assessment Tool: RODOLFO-7 Assessment 01053 Review of Systems Const All systems reviewed & are unremarkable except as noted in HPI and below Denies fever(s) and Denies weakness Eyes Denies change in vision ENT Denies dizziness and Denies nasal congestion Card Denies chest pain, Denies lightheadedness, Denies palpitations and Denies dyspnea Resp Denies chest congestion, Denies cough and Denies dyspnea GI Denies abdominal pain, Denies melena and Denies heartburn Reports no additional complaints Musc Reports as per HPI Neuro Denies dizziness and Denies weakness Psych Reports no additional complaints Endo Denies polydipsia, Denies polyuria and Denies palpitations Omar/Lymph Reports no additional complaints Aller/Immun Denies seasonal rhinorrhea Physical exam (Primary Care) Tobacco/Smoking Status: Tobacco use Status Tobacco use date assessed 10/31/24 10/31/24 12:55 Patient Tobacco Use Status Never used Tobacco 10/31/24 12:55 e-Cigarette/Vaping Use Never Used 10/31/24 12:55 PHQ-9: PHQ-9 Score PHQ-9: Total score 0 10/31/24 13:14 Depression Screening Interpretation: Negative Thrive Assessment: Date of Thrive Assessment Date Thrive assessed 10/31/24 10/31/24 12:55 Currently or been in a relationship where the following occur: No concerns reported Telehealth Telehealth Telehealth Platform: [facility] Location of provider rendering services: practice address Location of patient: address on file Patient Identification confirmed using: Name, : Yes Telehealth method: video Patient verbally consented to treatment: Yes Patient verbally consented to billing insurance company: Yes Patient informed of any privacy concerns related to visit: Yes Minutes spent on Phone/Video with Pt.: 15 Coding Level of Care Code Tele Est Pt Level 3 (25757) Diagnoses Overweight (BMI 25.0-29.9) E66.3 Additional Codes PHQ-9 - 65169 - PHQ-9 Billing: Yes ([id number]) RODOLFO-7 Assessment Billing - RODOLFO-7 Assessment Tool: RODOLFO-7 Assessment 23564 ([id number]) Assessment & Plan Assessment & Plan (1) Overweight (BMI 25.0-29.9): Code(s): E66.3 - Overweight Category: Medical Plan: Will try on phentermine to see if this will help with weight loss. Will start on 15 mg capsules, to take once a day 2 hours after breakfast. Combined this with adhering to healthy eating habits and getting regular exercise. Possible side effects of medication discussed with patient which may include palpitations, lightheadedness, chest pain elevations in blood pressure. Will see her back for follow-up in 4 weeks after starting phentermine Medications: New phentermine must administer 2 hours after breakfast 15 mg PO DAILY 30 caps 0RF
== END 2024-10-31 14:10 | disposition home or self-care (01) ==
LOC: HO.HMCC 12:55
PROVIDERS: PCP Internal Medicine; Visit Provider Internal Medicine
DX: E66.3 Overweight (principal)

== ENCOUNTER → 2024-10-31 12:55 | Outpatient (BNVA) | payer OTHER, SELFPAY | PROVIDERS: PCP Internal Medicine; Visit Provider Internal Medicine | DX: E66.3 Overweight (principal); Z71.3 Dietary counseling and surveillance | CPT/HCPCS: 96127 ==

== ENCOUNTER 2024-11-10 17:59 | Emergency (ER) | payer OTHER, SELFPAY ==
--- NOTE | ~2024-11-10 | CT_ITS ---
CLINICAL HISTORY: lower abdominal pain and rectal bleed CT abdomen and pelvis with contrast Comparison: None Findings: No consolidation or effusion. Unremarkable gallbladder and solid organs. No urolithiasis. No bowel obstruction, pneumoperitoneum, or pneumatosis. Pelvic contents unremarkable. Normal appendix. No acute fracture. IMPRESSION: No acute findings. This document has been electronically signed by: Carlos Linares MD on 11/10/2024 23:56:48
[2024-11-10 18:18] VITALS: BP 132/70; PULSE 92; RESP 18; TEMP 36.2; O2SAT 99; BMI 28.3
--- NOTE | 2024-11-10 18:20 | ED_ITS ---
HPI - General Adult General Chief complaint: Abdominal Pain Stated complaint: bloody stool, nausea & dizzy Time Seen by Provider: 11/10/24 22:19 Source: patient and family Mode of arrival: ambulatory Limitations: no limitations History of Present Illness ED Provider: DR. Mohan HPI narrative: 29-year-old female came in for evaluation of rectal bleed that has been going for while, patient was evaluated by her PCP had GI referral that she missed and the patient will need to reschedule. been having bright red blood per rectum for few months now especially when she wipes, came in today for feeling dizziness, headache, lower abdominal pain, last time seen rectal bleed was 2 days ago. No fever, chills, no history of intra-abdominal surgery. Related Data Previous Rx's ?Medication ?Instructions ?Recorded lorazepam 1 mg tablet 1 mg PO DAILY PRN anxiety 14 days 12/12/22 #14 tabs albuterol sulfate 90 mcg/actuation 1 puff inhalation Q6H PRN Wheezing 04/28/24 aerosol inhaler and bronchospasm #8.5 grams phentermine 15 mg capsule 15 mg PO DAILY #30 caps 10/31/24 Zepbound 2.5 mg/0.5 mL 2.5 mg (0.5 mL) subcut QWEEK #2 mL 11/10/24 subcutaneous pen injector (tirzepatide (weight loss)) Allergies Allergy/AdvReac Type Severity Reaction Status Date / Time amoxicillin [AMOXICILLIN] Allergy Unknown Rash Verified 11/10/24 18:21 Penicillins [PENICILLINS] Allergy Unknown Rash Verified 11/10/24 18:21 tramadol AdvReac Vomiting Verified 11/10/24 18:22 Review of Systems 2 Review of Systems: all other systems are reviewed and are negative Constitutional: Reports as per HPI and Reports no additional constitutional complaints Eyes: Reports as per HPI and Reports no additional eye complaints Reports system reviewed and no additional complaints, except as documented Cardiovascular: Reports as per HPI and Reports no additional cardiovascular complaints Respiratory: Reports as per HPI and Reports no additional respiratory complaints Gastrointestinal: Reports as per HPI and Reports no additional gastrointestinal complaints Genitourinary: Reports no additional female genitourinary complaints Musculoskeletal: Reports no additional musculoskeletal complaints Skin/Breast: Reports system reviewed and no additional complaints, except as docu Psychiatric: Reports no additional psychiatric complaints Endocrine: Reports no additional endocrine complaints Hematologic/Lymphatic: Reports no additional hematologic/lymphatic complaints Allergic/Immunologic: Reports no additional allergic/immunologic complaints Reports system reviewed and no additional complaints, except as documented and Reports Abnormal speech present [facility] Past Medical History Medical History Overweight (BMI 25.0-29.9) Hx of anxiety disorder Constipation Mixed dyslipidemia Upper back pain, chronic Vitamin D deficiency Mild intermittent asthma IBS (irritable bowel syndrome) Surgical History Hx of breast reduction, elective History of wisdom tooth extraction Family History Family History Father Diabetes mellitus HTN (hypertension) Stroke Back problem Kidney stone Mental health disorder Mother Anxiety Ovarian cyst Mental health disorder Maternal Grandmother Unknown family medical history Maternal Grandfather Unknown family medical history Paternal Grandmother Unknown family medical history Alzheimer's disease Paternal Grandfather Unknown family medical history Brother No problems noted. Brother No problems noted. Brother No problems noted. Sister No problems noted. Sister No problems noted. Sister No problems noted. Sister No problems noted. Social History Social History Household Members: Family Housing: House Alcohol intake: never Patient Tobacco Use Status: Never used Tobacco Smoked in Last 30 Days: No e-Cigarette/Vaping Use: Never Used Use of substances other than those prescribed or required for medical reasons: No Advance Directives: No Advance Directives Information Provided: No Do you have a plan to hurt others: No Plan service: No Current occupational status: employed Cognitive needs: No Hearing needs: No Vision needs: Yes Physical Exam ED Vital Signs: Vital Signs - 24 hr 11/10/24 18:18 11/11/24 00:04 11/11/24 00:05 Temperature 97.1 F Pulse Rate 92 85 87 Respiratory Rate 18 Blood Pressure 132/70 116/62 117/68 Pulse Oximetry 99 Oxygen Delivery Method Room Air 11/11/24 00:07 Temperature Pulse Rate 92 Respiratory Rate Blood Pressure 125/78 Pulse Oximetry Oxygen Delivery Method BMI result Body Mass Index 28.3 Vital signs have been reviewed and appear to be correct. Blood pressure elevated. Heart rate normal. Respiratory rate normal. Temperature normal. Oxygen saturation normal. Appearance: Alert. Oriented X3. No acute distress. Head: Normal external exam. Normocephalic. Atraumatic. No Barrientos signs noted. No raccoon eyes noted Eyes: PERRLA. EOMI. Conjunctiva and sclera normal. Eyelids normal. ENT: TM's Normal. Pharynx normal. Uvula midline. Moist mucous membranes. No trismus noted. No drooling noted. No muffled voice noted. Neck: Normal inspection. Neck supple. FROM. No adenopathy. Thyroid Normal. No meningeal signs. No neck mass noted. CVS: Normal heart rate and rhythm. Heart sound normal. No murmurs noted. Pulses normal throughout. Respiratory: No respiratory distress. Painless inspiration. Breath sounds normal. No wheezes/rales/rhonchi noted. Chest nontender. No accessory muscle usage noted or decreased air movement noted. Abdomen: Soft, mild lower abdominal tenderness, no rebound tenderness, no guarding.Bowel sounds normal in all 4 quadrants. No distention noted. No organomegaly noted. No visible injury noted. Rectal exam: In the presence of RN Lalitha is a female savings teller rectal exam reveals no external or internal hemorrhoid, brown stool with guaiac negative. Back: No CVA tenderness. Full range of motion noted. Skin: Skin warm and dry. Normal skin color. Normal skin turgor. No rashes/lesions/lacerations noted. Extremities: No lower extremity edema. Extremities exhibit normal range of motion. Extremities nontender. Neuro: Oriented X 3. Cranial nerve exam: II-XII are grossly intact No motor deficit. No sensory deficit. Reflexes normal. Course Course Course Narrative: RME performed by Tracy Dash PA-C. Patient is a 29 year old assigned female at presenting to the emergency department with dark stool, dizziness, and feeling generally unwell. Patient states over the last few weeks she has had dark stools with dizziness and feeling generally unwell. Detailed physical exam and review of systems are deferred to the customer logistics manager. Labs and swabs ordered. Patient placed back in the waiting room pending room availability and results. Reevaluation(s) Reevaluation #1: 29-year-old female with lower abdominal pain and rectal bleed. Labs are unremarkable, no orthostatic hypotension or tachycardia, stable H&H, rectal exam reveals no active bleeding at this point, CT of the abdomen and pelvis is unremarkable for acute intra-abdominal pathology. Patient was instructed to reschedule her appointment with GI. Time: 01:00 Medications Administered Discontinued Medications Generic Name Dose Route Start Last Admin Trade Name Katie PRN Reason Stop Dose Admin Iohexol 85 ml 11/10/24 23:13 11/10/24 23:19 Iohexol 350 Mg/Ml 100 Ml Infus..Btl IV 11/10/24 23:14 85 ml ONCE ONE Administration Medical Decision Making Differential Diagnosis Differential Diagnoses: The differential diagnosis associated with the presentation includes ( colitis, diverticular disease, hemorrhoids, orthostatic hypotension, dehydration, derangement, severe anemia, .) Admission/Observation Consideration of admission/observation: Escalation of care including admission/observation considered Lab Data MDM Lab Attestation statement: I reviewed the patient's lab results. 11/10/24 18:34 11/10/24 18:34 Labs: Lab Results 11/10/24 11/10/24 11/10/24 Range/Units 18:34 19:41 22:30 WBC 9.8 (4.8-10.8) X10*3/uL RBC 4.45 (4.20-5.50) X10*6/uL Hgb 13.8 (12.0-16.0) g/dl Hct 39.7 (37.0-47.0) % MCV 89.2 (80.0-98.0) fL MCH 31.0 (27.0-33.0) pg MCHC 34.8 (31.0-35.0) g/dl RDW 11.9 (11.0-16.0) % Plt Count 366 D (160-400) X10*3/uL MPV 9.2 L (9.4-12.3) fL Immature Gran % (Auto) 0.7 H (0.0-0.4) % Neut % (Auto) 56.2 (45-73) % Lymph % (Auto) 32.3 (20-40) % Custer % (Auto) 8.9 (2-11) % Eos % (Auto) 1.0 (0-4) % Baso % (Auto) 0.9 (0-2) % Lymph # (Auto) 3.2 (1.2-4.9) X10*3/uL [place] # (Auto) 0.9 (0.1-1.2) X10*3/uL Eos # (Auto) 0.1 (0.0-0.4) X10*3/uL Baso # (Auto) 0.1 (0.0-0.2) X10*3/uL Abs Immat Gran (auto) 0.07 H (0.00-0.03) X10*3/uL Absolute Neuts (auto) 5.5 (2.0-8.3) x10*3/uL Absolute Nucleated RBC 0.000 (0.0-0.012) X10*3/uL Nucleated RBC % (auto) 0.0 (0.0-0.2) /100WBC PT 10.7 L (10.9-12.4) SEC INR 0.9 (0.9-1.1) APTT 35.1 (26.0-36.8) SEC Sodium 141 (135-145) mmol/L Potassium 4.1 (3.3-5.1) mmol/L Chloride 109 H (96-108) mmol/L Carbon Dioxide 24 (22-29) mmol/L Anion Gap 12 (12-20) BUN 10 (9-16) mg/dL Creatinine 0.94 (0.5-1.4) mg/dL Estim Creat Clear Calc 89.8 Estimated GFR > 60 Random Glucose 87 (60-115) mg/dL Calcium 9.4 (8.4-10.2) mg/dL Magnesium 1.9 (1.6-2.6) mg/dL Total Bilirubin 0.2 (0.0-1.0) mg/dL AST 22 (5-31) U/L ALT 35 H (0-31) U/L Alkaline Phosphatase 58 (39-117) U/L Total Protein 7.9 (6.5-8.0) g/dL Albumin 4.1 (3.5-5.0) g/dL Beta HCG, Quant < 2 mIU/mL Urine Color Yellow Urine Appearance Clear Urine pH 6.0 (5.0-9.0) Ur Specific [place] 1.020 (1.005-1.025) Urine Protein Negative (Neg-Trace) mg/dL Urine Glucose (UA) Negative (Negative) mg/dL Urine Ketones Trace (Negative) mg/dL Urine Blood Negative (Negative) Urine Nitrite Negative (Negative) Ur Leukocyte Esterase Negative (Negative) Stool Occult Blood NEGATIVE (NEGATIVE) Influenza Type A (PCR) NEGATIVE (Negative) Influenza Type B (PCR) NEGATIVE (Negative) RSV RNA Qual (PCR) NEGATIVE (Negative) SARS-CoV-2 RNA (RT-PCR) NEGATIVE (Negative) Independent Interpretation I performed an independent interpretation of an: CT Scan ( abdomen and pelvis: No acute intra-abdominal pathology.) Radiology Impression Discussion of test interpretation with radiology: I have reviewed the radiologist's reading. Discharge Plan Discharge Clinical Impression: Abdominal pain Patient Disposition: Still a Patient Instructions: Abdominal Pain (ED) Additional Instructions: Call your plant engineering supervisor and reschedule your appointment. Prescriptions: No Action lorazepam 1 mg tablet 1 mg PO DAILY PRN (Reason: anxiety) 14 Days Qty: 14 0RF Zepbound 2.5 mg/0.5 mL pen injector 2.5 mg subcut QWEEK Qty: 2 0RF Rx Instructions: for 4 weeks albuterol sulfate 90 mcg/actuation HFA aerosol inhaler 1 puff inhalation Q6H PRN (Reason: Wheezing and bronchospasm) Qty: 8.5 3RF phentermine 15 mg capsule 15 mg PO DAILY Qty: 30 0RF Rx Instructions: must administer 2 hours after breakfast Print Language: Macedonian
[2024-11-10 18:39] LABS: MANUAL DIFF FLAG NO
[2024-11-10 18:41] LABS: Basophils Absolute Auto 0.1 X10*3/uL (0.0-0.2); Basophils Percent Auto 0.9 % (0-2); Eosinophils Absolute Auto 0.1 X10*3/uL (0.0-0.4); Hematocrit 39.7 % (37.0-47.0); Hemoglobin 13.8 g/dl (12.0-16.0); Imm Gran Abs Auto 0.07 X10*3/uL (0.00-0.03); Imm Gran Pct Auto 0.7 % (0.0-0.4); Lymphocytes Absolute Auto 3.2 X10*3/uL (1.2-4.9); Lymphocytes Percent Auto 32.3 % (20-40); Mean Corpuscular HGB Conc 34.8 g/dl (31.0-35.0); Mean Corpuscular Volume 89.2 fL (80.0-98.0); Mean Platelet Volume 9.2 fL (9.4-12.3); Monocytes Absolute Auto 0.9 X10*3/uL (0.1-1.2); Monocytes Percent Auto 8.9 % (2-11); Neutrophils Absolute Auto 5.5 x10*3/uL (2.0-8.3); Neutrophils Percent Auto 56.2 % (45-73); Platelet Count 366 X10*3/uL (160-400); Red Blood Count 4.45 X10*6/uL (4.20-5.50); Red Cell Distribution Width 11.9 % (11.0-16.0); White Blood Count 9.8 X10*3/uL (4.8-10.8)
[2024-11-10 18:53] LABS: INTERNATIONAL NORM RATIO 0.9 (0.9-1.1); Prothrombin Time 10.7 SEC (10.9-12.4)
[2024-11-10 18:55] LABS: Partial Thromboplastin Time 35.1 SEC (26.0-36.8)
[2024-11-10 18:59] LABS: Alanine Aminotransferase 35 U/L (0-31); Albumin Level 4.1 g/dL (3.5-5.0); Anion Gap 12 (12-20); Aspartate Amino Transferase 22 U/L (5-31); Bilirubin Total 0.2 mg/dL (0.0-1.0); Blood Urea Nitrogen 10 mg/dL (9-16); Calcium 9.4 mg/dL (8.4-10.2); Carbon Dioxide 24 mmol/L (22-29); Chloride 109 mmol/L (96-108); Creatinine Clr Calc Pharmacy 89.8; Estimated Glomerular Filt Rate > 60; Glucose Random 87 mg/dL (60-115); Magnesium 1.9 mg/dL (1.6-2.6); Potassium 4.1 mmol/L (3.3-5.1); Sodium 141 mmol/L (135-145); Total Protein 7.9 g/dL (6.5-8.0)
[2024-11-10 19:03] LABS: Alkaline Phosphatase 58 U/L (39-117)
[2024-11-10 19:18] LABS: Influenza A PCR NEGATIVE (Negative); Influenza B PCR NEGATIVE (Negative); Resp Syncy Virus RNA Qual PCR NEGATIVE (Negative); SARS COV2 PCR INHOUSE NEGATIVE (Negative)
[2024-11-10 20:07] LABS: Appearance Urine Clear; Color Urine Yellow; Glucose Urine UA Negative (Negative); Leukocyte Esterase Urine Negative (Negative); Nitrite Urine Negative (Negative); Urine Blood Negative (Negative); Urine Ketones Trace mg/dL (Negative); Urine Protein Negative (Neg-Trace)
--- NOTE | 2024-11-10 22:14 | PC.NURSE ---
Pt a&ox4, no signs of distress. Pt reports 6/10 abd pain, with bleeding in stool and clotting onset 3 days ago,nausea and dizziness. Pts family at bedside. Plan of care ongoing.
[2024-11-10 22:40] LABS: OBS Int Ctl Valid YES; OBS1 NEGATIVE (NEGATIVE)
[2024-11-10 22:51] LABS: HCG Quantitative < 2 mIU/mL
[2024-11-10] MEDS: iohexoL 350 MG/ML 100 ML INFUS..BTL 85 ML IV (23:19)
[2024-11-11 00:04] VITALS: BP 116/62; PULSE 85
[2024-11-11 00:05] VITALS: BP 117/68; PULSE 87
[2024-11-11 00:07] VITALS: BP 125/78; PULSE 92
[2024-11-11 01:35] VITALS: BP 116/73; PULSE 83; RESP 18; TEMP 36.3; O2SAT 100
[2024-11-11 02:25] VITALS: BP 116/73; PULSE 83; RESP 18; TEMP 36.3; O2SAT 100
== END 2024-11-11 02:42 | disposition home or self-care (01) ==
PROVIDERS: Physician Assistant Medical; Emergency Provider Emergency Medicine; PCP Internal Medicine
DX: R10.30 Lower abdominal pain, unspecified (principal); R42 Dizziness and giddiness; R51.9 Headache, unspecified; J45.909 Unspecified asthma, uncomplicated; E78.2 Mixed hyperlipidemia; Z03.818 Encounter for observation for suspected exposure to other biological agents ruled out; Z79.899 Other long term (current) drug therapy
CPT/HCPCS: 0241U; 74177; 80053; 81003; 82272; 83735; 84702; 85025; 85610; 85730; 99284; Q9967

== ENCOUNTER → 2024-11-10 22:29 | Outpatient (BNV) | payer OTHER, SELFPAY | PROVIDERS: Emergency Provider Emergency Medicine; PCP Internal Medicine; Visit Provider Radiology Diagnostic Radiology | DX: R10.30 Lower abdominal pain, unspecified (principal); K62.5 Hemorrhage of anus and rectum | CPT/HCPCS: 74177 ==

== ENCOUNTER → 2024-11-20 14:25 | Outpatient (BNVA) | payer OTHER, SELFPAY | PROVIDERS: PCP Internal Medicine; Visit Provider Internal Medicine ==

== ENCOUNTER 2025-01-27 08:41 | Outpatient (REF) | payer OTHER, SELFPAY ==
--- OUTSIDE RECORDS SUMMARY | 2025-01-27 09:58 | XMS_ITS | Clinical Summary ---
Author Organization [facility] [address] [place] [address] [place] [phone] Phone Care Team Providers Care Rubber Grinder Name Role Phone Luisa Manriquez MD Primary [...] EDT Office Visit Obstetrics and Gynecology - [address] [phone] Purnima Oconnell, [place] Vaginal odor (Primary Dx); [...] care for your loved ones. For example, child adolescent care or elderly care for an older adult? [...] LAB MICROBIOLOGY METHOD 01/06/2025 2:12 PM EDT [facility] Brushing/Spatula Cervix uteri structure / Unknown 01/05/2025 9:53 AM EDT 01/06/2025 6:10 AM EDT [facility] MOLECULAR DIAGNOSTICS OR DERABLES Final Result [facility] [address] [place] [address], * Trichomonas vaginalis antigen (01/05/2025 9:53 AM EDT) Trichomonas vaginalis Negative Negative 01/05/2025 7:30 PM EDT [facility] Swab Vaginal structure / Unknown Non-blood Collection / Unknown 01/05/2025 9:53 AM EDT 01/05/2025 9:54 AM EDT us [facility] MICROBIOLOGY - GENERAL O RDERABLES Final Result [facility] [address] [place] [address], [place] [phone] * Chlamydia trachomatis and Neisseria gonorrhoeae molecular study (01/05/2025 9:53 AM EDT) Neisseria gonorrhoeae PCR Negative Negative LAB MOLECULAR DIAGNOSTICS METHOD 01/06/2025 2:57 PM EDT [facility] Chlamydia trachomatis PCR Negative Negative LAB MOLECULAR DIAGNOSTICS METHOD 01/06/2025 2:57 PM EDT [facility] Swab Vaginal structure / Unknown Non-blood Collection / Unknown 01/05/2025 9:53 AM EDT 01/05/2025 9:54 AM EDT us [facility] MICROBIOLOGY - GENERAL O RDERABLES Final Result Performing Organization Address City/[facility]/ZIP Co de Phone Number [facility] [address] [place] [address], * Wet prep, genital (01/05/2025 9:53 AM EDT) Clue Cells, Wet Prep Negative Negative 01/05/2025 7:29 PM EDT [facility] Yeast, Wet Prep Negative Negative 01/05/2025 7:29 PM EDT [facility] Trichomonas, Wet Prep Indeterminate Negative 01/05/2025 7:29 PM EDT [facility] Comment:Refer to Trichomonas antigen. Swab Vaginal structure / Unknown Non-blood Collection / Unknown 01/05/2025 9:53 AM EDT 01/05/2025 9:54 AM EDT us [facility] MICROBIOLOGY - GENERAL O RDERABLES Final Result Performing Organization Address City/[facility]/ZIP Co de Phone Number [facility] [address] [place] [address], * Pap smear (01/05/2025 9:53 AM EDT) Interpretation Negative for intraepithelial lesion or malignancy 01/07/2025 10:34 AM EDT [facility] General Categorization Negative 01/07/2025 10:34 AM EDT [facility] LMP 12/08/2024 01/07/2025 10:34 AM EDT [facility] Specimen Adequacy Satisfactory for evaluation, endocervical/long sformation zone component present 01/07/2025 10:34 AM EDT [facility] Pap Methodology Liquid Based Pap Test 01/07/2025 10:34 AM EDT [facility] Disclaimer Note: This pap test could not be imaged utilizing the [employer] Imaging System and required a manual review. The Pap test is a screening test which carries an inherent false negative rate. These test results should be correlated with the patient's clinical findings and history. This Pap test was processed using an automated screening system. Technical cytopathology services provided by [facility], at [address] [place] [id number] (CLIA # [id number]/Diana Phipps MD, Automatic Serging Machine Operator.) 01/07/2025 10:34 AM EDT [facility] Console Pap Interpretation Reported 01/07/2025 10:34 AM EDT [facility] Brushing/Spatula Cervix uteri structure / Unknown 01/05/2025 9:53 AM EDT 01/05/2025 9:54 AM EDT [facility] CYTOLOGY ORDERABLES Laly fredrick Result [facility] [address] [place] [address], from Last 3 Months Insurance [facility] [employer] Care Teams Rubber Grinder Relationship Specialty Start Date End Date Luisa Manriquez MD [address] [place] [address] PCP - General Internal Medicine 01/02/25
[2025-01-27 10:39] LABS: Influenza A PCR NEGATIVE (Negative); Influenza B PCR NEGATIVE (Negative); Resp Syncy Virus RNA Qual PCR NEGATIVE (Negative); SARS COV2 PCR INHOUSE POSITIVE (Negative)
== END 2025-01-27 08:42 | disposition home or self-care (01) ==
LOC: HO.LAB 08:41
PROVIDERS: PCP Internal Medicine; Visit Provider Physician Assistant
DX: R09.89 Other specified symptoms and signs involving the circulatory and respiratory systems (principal); U07.1 COVID-19
CPT/HCPCS: 0241U; 87880; 99212

== ENCOUNTER 2025-01-27 08:41 | Outpatient (AMB) | payer OTHER, SELFPAY ==
--- NOTE | 2025-01-27 08:54 | MHC.OFFWIV ---
Intake Vital Signs 01/27/25 08:55 Weight 170 lb BP 110/74 Blood Pressure Location Rt brachial Position Sitting Pulse 80 Pulse Source Pulse Oximeter Temp 98.2 F Temp Source Oral Pulse Oximetry (%) 98 Oxygen Delivery Method Room Air Intake Visit Reasons: EP-sore throat,cough,vomiting,headaches,body ache Intake Note: Patient here for cough, stomach pain, bilat ear pain, vomiting, body aches and sore throat that slowly started on sunday and progressed yesterday. Patient Tobacco Use Status: Never used Tobacco Allergies amoxicillin [AMOXICILLIN] Allergy (Unknown, Verified 01/27/25 08:56) Rash Penicillins [PENICILLINS] Allergy (Unknown, Verified 01/27/25 08:56) Rash tramadol Adverse Reaction (Verified 01/27/25 08:56) Vomiting Do you need a note to return to daycare/school/sports/work: Yes HPI HPI Comments History of Present Illness Details History of Present Illness - The patient is a 29-year-old female presenting with flu-like symptoms. - Symptoms began with fatigue on Sunday, progressing to cough and sore throat by early Sunday morning, followed by vomiting. - Reports notable ear pain, primarily in the right ear, along with a cough and sore throat; denies aggravation of asthma or seasonal allergies. - Experienced chills, alternating with periods of feeling hot, headaches, and ear canal itchiness. - No sinus pain upon assessment, although vital signs showed fluctuations with notable sinus tachycardia characterized by an increased heart rate when recumbent. - Self-treatment with Tylenol provides insufficient symptom relief. Physical Exam General: Cooperative, healthy appearing, comfortable, no acute distress and well developed Orientation: Patient oriented x3 Limitations: No limitations Head: Normal to inspection Ears: Hearing grossly normal bilaterally, right ear with redness in the ear canal Nose: Normal External nose present Face and sinus: Normal facial exam, no pain on sinus palpation Eyes: Appearance normal, both eyes and all related structures Neck: Normal visual inspection and Yes full ROM Respiratory: Normal respiratory effort and able to speak in complete sentences. Clear to auscultation bilaterally Cardiovascular: Regular rate and rhythm with episodes of increased heart rate. Normal S1 and S2 Skin: No rashes or lesions noted Neuro: Patient oriented x3 Extremities: Normal to inspection [facility] Medical History Overweight (BMI 25.0-29.9) Hx of anxiety disorder Constipation Mixed dyslipidemia Upper back pain, chronic Vitamin D deficiency Mild intermittent asthma IBS (irritable bowel syndrome) Surgical History Hx of breast reduction, elective History of wisdom tooth extraction Family History Father Diabetes mellitus HTN (hypertension) Stroke Back problem Kidney stone Mental health disorder Mother Anxiety Ovarian cyst Mental health disorder Maternal Grandmother Unknown family medical history Maternal Grandfather Unknown family medical history Paternal Grandmother Unknown family medical history Alzheimer's disease Paternal Grandfather Unknown family medical history Brother No problems noted. Brother No problems noted. Brother No problems noted. Sister No problems noted. Sister No problems noted. Sister No problems noted. Sister No problems noted. Social History Household Members: Family Housing: House Alcohol intake: never Patient Tobacco Use Status: Never used Tobacco e-Cigarette/Vaping Use: Never Used service: No Current occupational status: employed Cognitive needs: No Hearing needs: No Vision needs: Yes Review of Systems Const All systems reviewed & are unremarkable except as noted in HPI and below Physical Exam Vital Signs: Last Vital Signs Temp 98.2 F 01/27/25 08:55 Pulse 109 H 01/27/25 08:55 BP 110/74 01/27/25 08:55 Pulse Ox 95 01/27/25 08:55 Oxygen Delivery Method Room Air 01/27/25 08:55 Assessment & Plan Assessment & Plan (1) Acute viral syndrome: Code(s): B34.9 - Viral infection, unspecified Plan: The management plan involves laboratory testing for influenza, COVID-19, and RSV, with Tamiflu recommended for positive influenza to shorten symptom duration, discussing potential side effects like nausea and the option to cease if needed. I have prescribed Zofran for nausea management, advising hydration and Tylenol use for symptomatic headache relief. Results of today's tests will be communicated upon availability. For her possible sinus node dysfunction/nancy-tachycardia, a consultation with her primary care provider, Dr. Manriquez, is advised for comprehensive evaluation. Sent PCP message to get her an appointment. Patient was informed and verbally consented to the use of an ambient scribe for clinic note documentation during this visit. Orders: Orders SARS-CoV2/FLU/RSV Today R09.89 - Other specified symptoms and signs involving the circulatory and respiratory systems Medications: New ondansetron 4 mg PO Q8H PRN 10 tabs 0RF nausea and vomiting Coding Level of Care Code Est Pt Level 3 (18863) Diagnoses Acute viral syndrome B34.9
[2025-01-27 08:55] VITALS: BP 110/74; PULSE 80; TEMP 36.8; O2SAT 98
--- OUTSIDE RECORDS SUMMARY | 2025-01-27 09:04 | XMS_ITS | Clinical Summary ---
Author Organization [facility] [address] [place] [address] [place] [phone] Phone Care Team Providers Care Elevator Operator Name Role Phone Luisa Manriquez MD Primary Care Provider Allergies Active Allergy Reactions Criticality Noted Date Comments Amoxicillin Hives 09/09/2024 Penicillins Hives 09/09/2024 Medications LORazepam (ATIVAN) 1 mg tablet Take 1 Tablet by mouth every 6 hours as needed. - Oral Active linaCLOtide (LINZESS) 72 mcg capsule Take by mouth as needed. - Oral Active fluoxetine HCl (FLUOXETINE ORAL) Take 60 mg by mouth daily. - Oral 01/06/20 25 Discontinued Encounters Date Type Department Care Team Description 01/05/2025 9:40 AM EDT Office Visit Obstetrics and Gynecology - [address] [phone] Purnima [place]connell, [place] Vaginal odor (Primary Dx); Cervical cancer screening; Encounter for other general counseling or advice on contraception from Last 3 Months Social History Tobacco Use Types Packs/Day Years Used Date Smoking Tobacco: Never Smokeless Tobacco: Never Tobacco Cessation:Counseling Given: Not Answered Alcohol Use Standard Drinks/Week Comments Yes 0 (1 standard drink = 0.6 oz pur e alcohol) Housing Instability Answer Date Recorde d Are you worried that in the next 2 months you may not have stable housing? No 01/01/2025 Food Access & Nutrition Answer Date Rec orded Do you have access to a vari ety of food including fruits and vegetables? Yes 01/01/2025 Access to Healthcare Answer Date Record ed Within the last 3 months, ho w many times did you visit the emergency department for your medical care? 0 01/01/2025 Health Literacy Answer Date Recorded How often do you need to hav e someone help you when you read instructions, pamphlets, or other written material from your doctor or pharmacy? Rarely 01/01/2025 Caregiver: How often do you need to have someone help you when you read instructions, pamphlets, or other written material from your doctor or pharmacy? Not on file 01/01/2025 Financial Risk Answer Date Recorded How hard is it for you to pa y for the very basics like food, housing, medical care, and air conditioning / heating? Not very hard 01/01/2025 Transportation Answer Date Recorded Has the lack of transportati on kept you from meetings, work, or from getting things needed for daily living? No Has the lack of transportati on kept you from medical appointments or from getting medications? No 01/01/2025 Social Isolation Answer Date Recorded How often do you feel lonely or isolated from th ose around you? Rarely 01/01/2025 Food Risk Answer Date Recorded Within the past 12 months we worried whether our food would run out before we got money to buy more. Never true 01/01/2025 Within the past 12 months th e food we bought just didn't last and we didn't have money to get more. Never true 01/01/2025 Dependent Care Answer Date Recorded Do you need help finding or paying for care for your loved ones. For example, attendant child activity or elderly care for an older adult? No 01/01/2025 Education Answer Date Recorded Do you think completing more education or training, like finishing a GED, going to college, or learning a trade, would be helpful for you? N/A 01/01/2025 Employment and Income Answer Date Recor ded During the last four weeks, have you been actively looking for work? No 01/01/2025 Living Situation Answer Date Recorded What is your living situation? 0 01/01/2025 Comments No Sex and Gender Information Value Date Recorded Sex Assigned at Not on file Legal Sex Female 1:39 AM EST Gender Identity Not on file Sexual Orientation Not on file Obstetrics History Para Term AB IAB SAB Ectopic Multiple Livin g Live Births 0 0 0 0 0 0 0 0 0 0 0 Last Filed Vital Signs Vital Sign Reading Time Taken Comments Blood Pressure 103/80 01/05/2025 9:37 AM EDT Pulse 112 01/05/2025 9:37 AM EDT Temperature - - Respiratory Rate 12 01/05/2025 9:37 AM EDT Oxygen Saturation - - Inhaled Oxygen Concentration - - Weight 79.3 kg (174 lb 12.8 oz) 01/05/2025 9:37 AM EDT Height 167.6 cm (5' 6 ) 01/05/2025 9:37 AM EDT Body Mass Index 28.21 01/05/2025 9:37 AM EDT Plan of Treatment Health Maintenance Due Date Last Done Comments Hepatitis B Vaccines (2 of 3 - 19+ 3-dose series) 02/15/2016 01/18/2016 HIV Screening 09/17/2022 Hepatitis C Screening 09/17/2022 COVID-19 Vaccine (2023-2 5 season) 2024 08/02/2021, 07/12/2021 Influenza Vaccine (Season Ended) 2025 08/16/2023, 07/28/2016 Social Influencers of Health Screening 01/01/2026 01/01/2025 DTaP,Tdap,and Td Vaccines (2 - Td or Tdap) 01/02/2026 01/03/2016 Depression Screening 01/03/2026 01/03/2025 Cervical Cancer Screening: HPV 01/05/2030 01/05/2025 HIB Vaccines Aged Out No longer eligi ble based on patient's age to complete this topic HPV Vaccines Aged Out No longer eligi ble based on patient's age to complete this topic Hepatitis A Vaccines Aged Out No long er eligible based on patient's age to complete this topic IPV Vaccines Aged Out No longer eligi ble based on patient's age to complete this topic MMR Vaccines Aged Out No longer eligi ble based on patient's age to complete this topic Meningococcal ACWY Vaccine Aged Out N o longer eligible based on patient's age to complete this topic Meningococcal B Vaccine Aged Out No l onger eligible based on patient's age to complete this topic Pneumococcal Vaccine: Pediatrics (0 to 5 Years) and At-Risk Patients (6 to 64 Years) Aged Out No longer eligible b ased on patient's age to complete this topic RSV Immunization Patients Under 20 months Aged Out No longer eligible b ased on patient's age to complete this topic Varicella Vaccines Aged Out No longer eligible based on patient's age to complete this topic Procedures Procedure Name Priority Date/Time Associated Diagnosis Comments PAP SMEAR Routine 01/05/2025 9:53 AM EDT Cervical cancer screening HPV WITH REFLEX GENOTYPE Routine 01/05/2025 9:53 AM EDT Cervical cancer screening TRICHOMONAS VAGINALIS ANTIGEN Routine 01/05/2025 9:53 AM EDT Vaginal odor CHLAMYDIA TRACHOMATIS AND NEISSERIA GONORRHOEAE PCR Routine 01/05/2025 9:53 AM EDT Vaginal odor WET PREP, GENITAL Routine 01/05/2025 9:5 3 AM EDT Vaginal odor from Last 3 Months Results * HPV with reflex genotype (01/05/2025 9:53 AM EDT) HPV Negative Negative LAB MICROBIOLOGY METHOD 01/06/2025 2:[address] [facility] Brushing/Spatula Cervix uteri structure / Unknown 01/05/2025 9:53 AM EDT 01/06/2025 6:10 AM EDT [facility] MOLECULAR DIAGNOSTICS OR DERABLES Final Result [facility] [address] [place] [address], * Trichomonas vaginalis antigen (01/05/2025 9:53 AM EDT) Trichomonas vaginalis Negative Negative 01/05/2025 7:[address] [facility] Swab Vaginal structure / Unknown Non-blood Collection / Unknown 01/05/2025 9:53 AM EDT 01/05/2025 9:54 AM EDT us [facility] MICROBIOLOGY - GENERAL O RDERABLES Final Result [facility] [address] [place] [address], [place] [phone] * Chlamydia trachomatis and Neisseria gonorrhoeae molecular study (01/05/2025 9:53 AM EDT) Neisseria gonorrhoeae PCR Negative Negative LAB MOLECULAR DIAGNOSTICS METHOD 01/06/2025 2:[address] [facility] Chlamydia trachomatis PCR Negative Negative LAB MOLECULAR DIAGNOSTICS METHOD 01/06/2025 2:[address] [facility] Swab Vaginal structure / Unknown Non-blood Collection / Unknown 01/05/2025 9:53 AM EDT 01/05/2025 9:54 AM EDT us [facility] MICROBIOLOGY - GENERAL O RDERABLES Final Result Performing Organization Address City/[facility]/ZIP Co de Phone Number [facility] [address] [place] [address], * Wet prep, genital (01/05/2025 9:53 AM EDT) Clue Cells, Wet Prep Negative Negative 01/05/2025 7:[address] [facility] Yeast, Wet Prep Negative Negative 01/05/2025 7:[address] [facility] Trichomonas, Wet Prep Indeterminate Negative 01/05/2025 7:[address] [facility] Comment:Refer to Trichomonas antigen. Swab Vaginal structure / Unknown Non-blood Collection / Unknown 01/05/2025 9:53 AM EDT 01/05/2025 9:54 AM EDT us [facility] MICROBIOLOGY - GENERAL O RDERABLES Final Result Performing Organization Address City/[facility]/ZIP Co de Phone Number [facility] [address] [place] [address], * Pap smear (01/05/2025 9:53 AM EDT) Interpretation Negative for intraepithelial lesion or malignancy 01/07/2025 10:[address] [facility] General Categorization Negative 01/07/2025 10:[address] [facility] LMP 12/08/2024 01/07/2025 10:[address] [facility] Specimen Adequacy Satisfactory for evaluation, endocervical/long sformation zone component present 01/07/2025 10:[address] [facility] Pap Methodology Liquid Based Pap Test 01/07/2025 10:[address] [facility] Disclaimer Note: This pap test could not be imaged utilizing the [employer] Imaging System and required a manual review. The Pap test is a screening test which carries an inherent false negative rate. These test results should be correlated with the patient's clinical findings and history. This Pap test was processed using an automated screening system. Technical cytopathology services provided by [facility], at [address] [place] [id number] (CLIA # [id number]/Diana Phipps MD, Manager Environmental Services.) 01/07/2025 10:[address] [facility] Console Pap Interpretation Reported 01/07/2025 10:[address] [facility] Brushing/Spatula Cervix uteri structure / Unknown 01/05/2025 9:53 AM EDT 01/05/2025 9:54 AM EDT [facility] CYTOLOGY ORDERABLES Laly fredrick Result [facility] [address] [place] [address], from Last 3 Months Insurance [facility] [employer] Care Teams Elevator Operator Relationship Specialty Start Date End Date Luisa Manriquez MD [address] [place] [address] PCP - General Internal Medicine 01/02/25
== END 2025-01-27 09:19 | disposition home or self-care (01) ==
PROVIDERS: PCP Internal Medicine; Visit Provider Physician Assistant
DX: Z13.9 Encounter for screening, unspecified (principal); B34.9 Viral infection, unspecified

== ENCOUNTER → 2025-02-04 13:15 | Outpatient (REF) | payer OTHER, SELFPAY ==
--- NOTE | 2025-02-04 13:19 | ECG_ITS ---
Test Reason : z87.898 Blood Pressure : */* mmHG Vent. Rate : 83 BPM Atrial Rate : 83 BPM P-R Int : 156 ms QRS Dur : 78 ms QT Int : 346 ms P-R-T Axes : 56 46 41 degrees QTcB Int : 406 ms Normal sinus rhythm with sinus arrhythmia Normal ECG No previous ECGs available Referred By: Luisa Manriquez Electronically Signed By: VICENTE HOFF
--- OUTSIDE RECORDS SUMMARY | 2025-02-04 15:38 | XMS_ITS | Clinical Summary ---
Author Organization [facility] [address] [place] [address] [place] [address] Phone Care Team Providers Care Senior Outside Sales Representative Name Role Phone Luisa Manriquez MD Primary Care Provider Allergies Active Allergy Reactions Criticality Noted Date Comments Amoxicillin Hives 09/09/2024 Penicillins Hives 09/09/2024 Medications LORazepam (ATIVAN) 1 mg tablet Take 1 Tablet by mouth every 6 hours as needed. - Oral Active linaCLOtide (LINZESS) 72 mcg capsule Take by mouth as needed. - Oral Active Encounters Date Type Department Care Team Description 01/05/2025 9:40 AM EDT Office Visit Obstetrics and Gynecology - [address] [phone] Purnima Oconnell, [place] Vaginal odor (Primary Dx); [...] care for your loved ones. For example, children librarian or elderly care for an older adult? [...] LAB MICROBIOLOGY METHOD 01/06/2025 2:12 PM EDT [facility] Brushing/Spatula Cervix uteri structure / Unknown 01/05/2025 9:53 AM EDT 01/06/2025 6:10 AM EDT us Purnima WOMACK LAB MOLECULAR DIAGNOSTICS OR DERABLES Final Result [facility] [address] [place] [address], * Trichomonas vaginalis antigen (01/05/2025 9:53 AM EDT) Trichomonas vaginalis Negative Negative 01/05/2025 7:30 PM EDT [facility] Swab Vaginal structure / Unknown Non-blood Collection / Unknown 01/05/2025 9:53 AM EDT 01/05/2025 9:54 AM EDT us Purnima WOMACK LAB MICROBIOLOGY - GENERAL O RDERABLES Final Result Performing Organization Address City/[facility]/ZIP Co de Phone Number [facility] [address] [place] [address], * Chlamydia trachomatis and Neisseria gonorrhoeae molecular study (01/05/2025 9:53 AM EDT) Pathologist [facility] Neisseria gonorrhoeae PCR Negative Negative LAB MOLECULAR DIAGNOSTICS METHOD 01/06/2025 2:57 PM EDT [facility] Chlamydia trachomatis PCR Negative Negative LAB MOLECULAR DIAGNOSTICS METHOD 01/06/2025 2:57 PM EDT [facility] Swab Vaginal structure / Unknown Non-blood Collection / Unknown 01/05/2025 9:53 AM EDT 01/05/2025 9:54 AM EDT us Purnima WOMACK LAB MICROBIOLOGY - GENERAL O RDERABLES Final Result Performing Organization Address [facility] Co de Phone Number [facility] [address] [place] [address], [place] [phone] * Wet prep, genital (01/05/2025 9:53 AM EDT) Pathologist [facility] Clue Cells, Wet Prep Negative Negative 01/05/2025 7:29 PM EDT [facility] Yeast, Wet Prep Negative Negative 01/05/2025 7:29 PM EDT [facility] Trichomonas, Wet Prep Indeterminate Negative 01/05/2025 7:29 PM EDT [facility] Comment:Refer to Trichomonas antigen. Swab Vaginal structure / Unknown Non-blood Collection / Unknown 01/05/2025 9:53 AM EDT 01/05/2025 9:54 AM EDT us Purnima WOMACK LAB MICROBIOLOGY - GENERAL O RDERABLES Final Result Performing Organization Address [facility]/ZIP Co de Phone Number [facility] [address] [place] [address], [place] [phone] * Pap smear (01/05/2025 9:53 AM EDT) Interpretation Negative for intraepithelial lesion or malignancy 01/07/2025 10:34 AM EDT [facility] General Categorization Negative 01/07/2025 10:34 AM EDT [facility] LMP 12/08/2024 01/07/2025 10:34 AM EDT [facility] Specimen Adequacy Satisfactory for evaluation, endocervical/long sformation zone component present 01/07/2025 10:34 AM EDT [facility] Pap Methodology Liquid Based Pap Test 01/07/2025 10:34 AM EDT [facility] Disclaimer Note: This pap test could not be imaged utilizing the [employer] System and required a manual review. The Pap test is a screening test which carries an inherent false negative rate. These test results should be correlated with the patient's clinical findings and history. This Pap test was processed using an automated screening system. Technical cytopathology services provided by [facility], at [address] [place] [address] (CLIA # [id number]/Diana Phipps MD, Used Car Make Ready Mechanic.) 01/07/2025 10:34 AM EDT [facility] Console Pap Interpretation Reported 01/07/2025 10:34 AM EDT [facility] Brushing/Spatula Cervix uteri structure / Unknown 01/05/2025 9:53 AM EDT 01/05/2025 9:54 AM EDT us Purnima WOMACK LAB CYTOLOGY ORDERABLES Laly alcala Result [facility] [address] [place] [address], [place] [phone] from Last 3 Months Insurance [facility] Care Teams Senior Outside Sales Representative Relationship Specialty Start Date End Date Luisa Manriquez MD [address] [place] [address] PCP - General Internal Medicine 01/02/25
== END ==
LOC: HO.CARD 13:15
PROVIDERS: PCP Internal Medicine; Visit Provider Internal Medicine
DX: Z87.898 Personal history of other specified conditions (principal)
CPT/HCPCS: 93005

== ENCOUNTER → 2025-02-04 13:19 | Outpatient (BNV) | payer OTHER, SELFPAY | PROVIDERS: PCP Internal Medicine; Visit Provider Internal Medicine | DX: Z87.898 Personal history of other specified conditions (principal) | CPT/HCPCS: 93010 ==

== ENCOUNTER 2025-02-18 09:07 | Outpatient (AMB) | payer OTHER, SELFPAY ==
[2025-02-18 09:18] VITALS: BP 112/76; PULSE 102; RESP 18; TEMP 36.6; O2SAT 99; BMI 29.3
--- NOTE | 2025-02-18 09:18 | AM.OFFWIN_ITS ---
Intake Vital Signs 02/18/25 09:18 Height 5 ft 5 in Weight 176 lb 6 oz BMI 29.3 BP 112/76 Blood Pressure Location Rt brachial Position Sitting Respiration 18 Pulse 102 H Pulse Source Pulse Oximeter Temp 98 F Temp Source Oral Pulse Oximetry (%) 99 Oxygen Delivery Method Room Air Intake Visit Reasons: EP- UTI?? Burning, frequent urinating Patient Tobacco Use Status: Never used Tobacco Allergies amoxicillin [AMOXICILLIN] Allergy (Unknown, Verified 02/18/25 09:18) Rash Penicillins [PENICILLINS] Allergy (Unknown, Verified 02/18/25 09:18) Rash tramadol Adverse Reaction (Verified 02/18/25 09:18) Vomiting Medication List - Last Reconciled 02/18/25 by Casimiro Butler MD albuterol sulfate 90 mcg/actuation 1 puff inhalation Q6H PRN lorazepam 1 mg PO DAILY PRN 14 days Zepbound (tirzepatide (weight loss)) 5 mg (0.5 mL) subcut QWEEK NS Do you need a note to return to daycare/school/sports/work: No HPI EP- UTI?? Burning, frequent urinating HPI Details History - The patient is a 30-year-old female pr esenting with burning sensation when urinating and the presence of blood. - The symptoms have been ongoing for philip roximately two weeks, occurring intermittently but with no significant improvement. - The patient initially suspected the pr esence of blood was due to menstruation but noted an absence of her period. - She reports no history of previous uri nary tract infections. - Denies accompanying symptoms such as f ever, chills, back pain, nausea, or vomiting. - Reports mild abdominal pain, potential ly attributable to an imminent menstrual cycle. Problem List - Urinary Tract Infection (UTI) Patient Instructions - Take prescribed antibiotic medication as directed, one tablet in the morning and one tablet 12 hours apart, for a duration of five days. - Begin medication as soon as it is obta ined from the pharmacy, and adhere to the dosing schedule. - Be aware that one of the medications m ay cause orange discoloration of the urine; this is expected and temporary, lasting only three days. - If symptoms persist or worsen, seek me dical care promptly. Review of Systems - General: No fever no chills - Neurological: No headaches no dizziness - Ear nose throat: No sore throat no hearing difficulty no ear pain - Cardiovascular: No syncope, no chest pain, no palpitations - Gastrointestinal: No nausea vomiting or diarrhea Physical Exam General: No acute distress HEENT: No acute findings Neck: Supple Respiratory system: Able to talk in full sentences, no audible wheeze Gastrointestinal: Hurts a little bit in the lower part of the abdomen Back: No CVAT Extremities: No new findings MERCURY CRACKING TESTER: Alert awake oriented x3 motor sensory intact Skin: Normal turgor PFSH Medical History Overweight (BMI 25.0-29.9) Hx of anxiety disorder Constipation Mixed dyslipidemia Upper back pain, chronic Vitamin D deficiency Mild intermittent asthma IBS (irritable bowel syndrome) Surgical History Hx of breast reduction, elective History of wisdom tooth extraction Family History Father Diabetes mellitus HTN (hypertension) Stroke Back problem Kidney stone Mental health disorder Mother Anxiety Ovarian cyst Mental health disorder Maternal Grandmother Unknown family medical history Maternal Grandfather Unknown family medical history Paternal Grandmother Unknown family medical history Alzheimer's disease Paternal Grandfather Unknown family medical history Brother No problems noted. Brother No problems noted. Brother No problems noted. Sister No problems noted. Sister No problems noted. Sister No problems noted. Sister No problems noted. Social History Household Members: Family Housing: House Alcohol intake: never Patient Tobacco Use Status: Never used Tobacco e-Cigarette/Vaping Use: Never Used service: No Current occupational status: employed Cognitive needs: No Hearing needs: No Vision needs: Yes Physical Exam Vital Signs: Last Vital Signs Temp 98 F 02/18/25 09:18 Pulse 102 H 02/18/25 09:18 Resp 18 02/18/25 09:18 BP 112/76 02/18/25 09:18 Pulse Ox 99 02/18/25 09:18 Oxygen Delivery Method Room Air 02/18/25 09:18 BMI result Body Mass Index 29.3 Results AMB Urinalysis, Automated UA Leukoctes 500 Melanie/uL Last Edit by LALITHA Fragoso on 02/18/25 09: 35 UA Nitrite Negative Last Edit by [facility], [facility] on 02/18/25 09:35 UA Urobilinogen 1 mg/dL Last Edit by MaryannMichelle Tanner, [facility] on 02/18/25 09: 35 UA Protein 300 mg/dL Last Edit by [facility], [facility] on 02/18/25 09:35 UA pH 6.0 Last Edit by [facility], [facility] on 02/18/25 09:35 UA Blood 200 Angel/uL Last Edit by [facility], [facility] on 02/18/25 09:35 UA Specific Stryker 1.025 [facility] on 02/18/25 09:35 UA Ketone Positive Last Edit by [facility] on 02/18/25 09:35 UA Bilirubin 1 mg/dL Last Edit by [facility] Flores [facility] on 02/18/25 09:35 UA Glucose 0 mg/dL Last Edit by [facility] on 02/18/25 09:35 Results Reviewed Results Reviewed: Laboratory Last Values Urine pH (Auto) 6.0 02/18/25 09:32 Specific Stryker (Auto) 1.025 02/18/25 09:32 Urine Protein (Auto) 300 mg/dL 02/18/25 09:32 Glucose (UA)(Auto) 0 mg/dL 02/18/25 09:32 Urine Ketones (Auto) Positive 02/18/25 09:32 Urine Blood (Auto) 200 Angel/uL 02/18/25 09:32 Urine Nitrite (Auto) Negative 02/18/25 09:32 Urine Bilirubin (Auto) 1 mg/dL 02/18/25 09:32 Urine Urobilinogen (Auto) 1 mg/dL 02/18/25 09:32 Leukocyte Esterase (Auto) 500 Melanie/uL 02/18/25 09:32 Assessment & Plan Assessment & Plan (1) Acute cystitis with hematuria: Code(s): N30.01 - Acute cystitis with hematuria Plan History - The patient is a 30-year-old female presenting with burning sensation when urinating and the presence of blood. - The symptoms have been ongoing for approximately two weeks, occurring interm ittently but with no significant improvement. - The patient initially suspected the presence of blood was due to menstruation but noted an absence of her period. - She reports no history of previous urinary tract infections. - Denies accompanying symptoms such as fever, chills, back pain, nausea, or vomiting. - Reports mild abdominal pain, potentially attributable to an imminent menstrual cycle. Problem List - Urinary Tract Infection (UTI) Patient Instructions - Take prescribed antibiotic medication as directed, one tablet in the morning and one tablet 12 hours apart, for a duration of five days. - Begin medication as soon as it is obtained from the pharmacy, and adhere to the dosing schedule. - Be aware that one of the medications may cause orange discoloration of the urine; this is expected and temporary, lasting only three days. - If symptoms persist or worsen, seek medical care promptly. Orders: Orders AMB Urinalysis Automated Today Carol Gaviria PA-C Z13.9 - Encounter for screening, unspecified Urine Culture Today Casimiro Butler MD N30. - Acute cystitis with hematuria Medications: New phenazopyridine (Pyridium) 200 mg PO TID PRN 6 tabs 0RF pain 2 days Casimiro Butler MD nitrofurantoin monohyd/m-cryst 100 mg (Macrobid) must administer with a meal/food 100 mg PO Q12H 10 caps 0RF 5 days Casimiro Butler MD Coding Level of Care Code Est Pt Level 3 (67449) Diagnoses Acute cystitis with hematuria N30.
--- OUTSIDE RECORDS SUMMARY | 2025-02-18 09:36 | XMS_ITS | Clinical Summary ---
Author Organization [facility] [address] [place] [address] [place] [address] Phone Care Team Providers Care Hat Forming Machine Feeder Name Role Phone Luisa Manriquez MD Primary [...] EDT Office Visit Obstetrics and Gynecology - [address] [phone] Purnima Oconnell, [place] Vaginal odor (Primary Dx); [...] for your loved ones. For example, child day care center worker or elderly care for an older adult? [...] LAB MICROBIOLOGY METHOD 01/06/2025 2:12 PM EDT [facility] Brushing/Spatula Cervix uteri structure / Unknown 01/05/2025 9:53 AM EDT 01/06/2025 6:10 AM EDT us Purnima WOMACK LAB MOLECULAR DIAGNOSTICS OR DERABLES Final Result [facility] [address] [place] [address], * Trichomonas vaginalis antigen (01/05/2025 9:53 AM EDT) Trichomonas vaginalis Negative Negative 01/05/2025 7:30 PM EDT [facility] Swab Vaginal structure / Unknown Non-blood Collection / Unknown 01/05/2025 9:53 AM EDT 01/05/2025 9:54 AM EDT us Purnima OWMACK LAB MICROBIOLOGY - GENERAL O RDERABLES Final Result Performing Organization Address City/[facility]/ZIP Co de Phone Number [facility] [address] [place] [address], * Chlamydia trachomatis and Neisseria gonorrhoeae molecular study (01/05/2025 9:53 AM EDT) Pathologist [facility] Neisseria gonorrhoeae PCR Negative Negative LAB MOLECULAR DIAGNOSTICS METHOD 01/06/2025 2:57 PM EDT [facility] Chlamydia trachomatis PCR Negative Negative LAB MOLECULAR DIAGNOSTICS METHOD 01/06/2025 2:57 PM EDT [facility] Swab Vaginal structure / Unknown Non-blood Collection / Unknown 01/05/2025 9:53 AM EDT 01/05/2025 9:54 AM EDT us Purnima WOMACK LAB MICROBIOLOGY - GENERAL O RDERABLES Final Result Performing Organization Address [facility] Co de Phone Number [facility] [address] [place] [address], [place] [phone] * Wet prep, genital (01/05/2025 9:53 AM EDT) Pathologist [facility] Clue Cells, Wet Prep Negative Negative 01/05/2025 7:29 PM EDT [facility] Yeast, Wet Prep Negative Negative 01/05/2025 7:29 PM EDT [facility] Trichomonas, Wet Prep Indeterminate Negative 01/05/2025 7:29 PM EDT [facility] Comment:Refer to Trichomonas antigen. Swab Vaginal structure / Unknown Non-blood Collection / Unknown 01/05/2025 9:53 AM EDT 01/05/2025 9:54 AM EDT us Purnima WOMACK LAB MICROBIOLOGY - GENERAL O RDERABLES Final Result Performing Organization Address [facility]/ZIP Co de Phone Number [facility] [address] [place] [address], [place] [phone] * Pap smear (01/05/2025 9:53 AM EDT) Interpretation Negative for intraepithelial lesion or malignancy 01/07/2025 10:34 AM EDT [facility] General Categorization Negative 01/07/2025 10:34 AM EDT [facility] LMP 12/08/2024 01/07/2025 10:34 AM EDT [facility] Specimen Adequacy Satisfactory for evaluation, endocervical/long sformation zone component present 01/07/2025 10:34 AM EDT [facility] Pap Methodology Liquid Based Pap Test 01/07/2025 10:34 AM EDT [facility] Disclaimer Note: This pap test could not be imaged utilizing the [employer] System and required a manual review. The Pap test is a screening test which carries an inherent false negative rate. These test results should be correlated with the patient's clinical findings and history. This Pap test was processed using an automated screening system. Technical cytopathology services provided by [facility], at [address] [place] [address] (CLIA # [id number]/Diana Phipps MD, Coating Supervisor.) 01/07/2025 10:34 AM EDT [facility] Console Pap Interpretation Reported 01/07/2025 10:34 AM EDT [facility] Brushing/Spatula Cervix uteri structure / Unknown 01/05/2025 9:53 AM EDT 01/05/2025 9:54 AM EDT us Purnima WOMACK LAB CYTOLOGY ORDERABLES Laly alcala Result [facility] [address] [place] [address], [place] [phone] from Last 3 Months Insurance [facility] Care Teams Hat Forming Machine Feeder Relationship Specialty Start Date End Date Luisa Manriquez MD [address] [place] [address] PCP - General Internal Medicine 01/02/25
== END 2025-02-18 10:15 | disposition home or self-care (01) ==
PROVIDERS: PCP Internal Medicine; Visit Provider Internal Medicine
DX: Z13.9 Encounter for screening, unspecified (principal); N30.01 Acute cystitis with hematuria

== ENCOUNTER 2025-02-18 09:07 | Outpatient (REF) | payer OTHER, SELFPAY ==
--- OUTSIDE RECORDS SUMMARY | 2025-02-18 14:42 | XMS_ITS | Clinical Summary ---
Author Organization [facility] [address] [place] [address] [place] [address] Phone Care Team Providers Care Interpretative Dancer Name Role Phone Luisa Manriquez MD Primary [...] EDT Office Visit Obstetrics and Gynecology - [address] [phone] Purnima Oconnell, [place] Vaginal odor (Primary Dx); [...] for your loved ones. For example, child support investigator or elderly care for an older adult? [...] LAB MICROBIOLOGY METHOD 01/06/2025 2:12 PM EDT [facility] Brushing/Spatula Cervix uteri structure / Unknown 01/05/2025 9:53 AM EDT 01/06/2025 6:10 AM EDT us Purnima WOMACK LAB MOLECULAR DIAGNOSTICS OR DERABLES Final Result [facility] [address] [place] [address], * Trichomonas vaginalis antigen (01/05/2025 9:53 AM EDT) Trichomonas vaginalis Negative Negative 01/05/2025 7:30 PM EDT [facility] Swab Vaginal structure / Unknown Non-blood Collection / Unknown 01/05/2025 9:53 AM EDT 01/05/2025 9:54 AM EDT us Purnima WOMACK LAB MICROBIOLOGY - GENERAL O RDERABLES Final Result Performing Organization Address City/[facility]/ZIP Co de Phone Number [facility] [address] [place] [address], * Chlamydia trachomatis and Neisseria gonorrhoeae molecular study (01/05/2025 9:53 AM EDT) Pathologist [facility] Neisseria gonorrhoeae PCR Negative Negative LAB MOLECULAR DIAGNOSTICS METHOD 01/06/2025 2:57 PM EDT [facility] Chlamydia trachomatis PCR Negative Negative LAB MOLECULAR DIAGNOSTICS METHOD 01/06/2025 2:57 PM EDT [facility] Swab Vaginal structure / Unknown Non-blood Collection / Unknown 01/05/2025 9:53 AM EDT 01/05/2025 9:54 AM EDT us Purnima WOMACK LAB MICROBIOLOGY - GENERAL O RDERABLES Final Result Performing Organization Address [facility] Co de Phone Number [facility] [address] [place] [address], [place] [phone] * Wet prep, genital (01/05/2025 9:53 AM EDT) Pathologist [facility] Clue Cells, Wet Prep Negative Negative 01/05/2025 7:29 PM EDT [facility] Yeast, Wet Prep Negative Negative 01/05/2025 7:29 PM EDT [facility] Trichomonas, Wet Prep Indeterminate Negative 01/05/2025 7:29 PM EDT [facility] Comment:Refer to Trichomonas antigen. Swab Vaginal structure / Unknown Non-blood Collection / Unknown 01/05/2025 9:53 AM EDT 01/05/2025 9:54 AM EDT us Purnima WOMACK LAB MICROBIOLOGY - GENERAL O RDERABLES Final Result Performing Organization Address [facility]/ZIP Co de Phone Number [facility] [address] [place] [address], [place] [phone] * Pap smear (01/05/2025 9:53 AM EDT) Interpretation Negative for intraepithelial lesion or malignancy 01/07/2025 10:34 AM EDT [facility] General Categorization Negative 01/07/2025 10:34 AM EDT [facility] LMP 12/08/2024 01/07/2025 10:34 AM EDT [facility] Specimen Adequacy Satisfactory for evaluation, endocervical/long sformation zone component present 01/07/2025 10:34 AM EDT [facility] Pap Methodology Liquid Based Pap Test 01/07/2025 10:34 AM EDT [facility] Disclaimer Note: This pap test could not be imaged utilizing the [employer] Imaging System and required a manual review. The Pap test is a screening test which carries an inherent false negative rate. These test results should be correlated with the patient's clinical findings and history. This Pap test was processed using an automated screening system. Technical cytopathology services provided by [facility], at [address] [place] [address] (CLIA # [id number]/Diana Phipps MD, Survival Equipment Repairer.) 01/07/2025 10:34 AM EDT [facility] Console Pap Interpretation Reported 01/07/2025 10:34 AM EDT [facility] Brushing/Spatula Cervix uteri structure / Unknown 01/05/2025 9:53 AM EDT 01/05/2025 9:54 AM EDT us Purnima WOMACK LAB CYTOLOGY ORDERABLES Laly alcala Result [facility] [address] [place] [address], [place] [phone] from Last 3 Months Insurance [facility] [employer] Care Teams Interpretative Dancer Relationship Specialty Start Date End Date Luisa Manriquez MD [address] [place] [address] PCP - General Internal Medicine 01/02/25
== END 2025-02-18 09:08 | disposition home or self-care (01) ==
LOC: HO.LNP 09:07
PROVIDERS: PCP Internal Medicine; Visit Provider Internal Medicine
DX: N30.01 Acute cystitis with hematuria (principal)
CPT/HCPCS: 81003; 87086; 87088; 87186; 99212

== ENCOUNTER 2025-03-07 10:56 | Emergency (ER) | payer OTHER, SELFPAY ==
--- NOTE | ~2025-03-07 | CT_ITS ---
CLINICAL HISTORY: RLQ pain, flank pain, concern for pyelo CT abdomen and pelvis with contrast Comparison: CT - CT ABDOMEN PELVIS W IV CON - 03/07/25 12:[address]/SR - CT ABDOMEN PELVIS W IV CON - 11/10/24 23:[address] - CT ABDOMEN PELVIS W IV CON - 11/10/24 23:04 EST US - ABDOMEN ULTRASOUND [id number] - 11/08/17 09:22 EST Findings: No consolidation at the lung bases. Unremarkable gallbladder. Questionable mild bladder wall thickening. Focal fat at the falciform ligament. There is a 3 mm stone at the right ureterovesicular junction protruding into the bladder which causes mild right hydroureteronephrosis. There is questionable focal decreased enhancement in the upper pole of the right kidney ( series 3, image 29 and series 6, image 68). No left hydronephrosis. No nephrolithiasis. The other solid organs are unremarkable. No bowel wall thickening or dilation. A normal appendix is identified. Normal vasculature. No lymphadenopathy. No ascites. No acute osseous abnormality. Impression: 3 mm stone at the right ureterovesicular junction causing mild right hydroureteronephrosis. Questionable right pyelonephritis and cystitis; correlate with urinalysis. This document has been electronically signed by: Marlen Srivastava MD on 03/07/2025 13:56:33
[2025-03-07 11:04] VITALS: BP 128/78; PULSE 100; O2SAT 98; BMI 25.8
[2025-03-07 11:16] VITALS: BP 134/76; PULSE 97; RESP 16; TEMP 36.6; O2SAT 95
[2025-03-07 11:16] LABS: MANUAL DIFF FLAG NO
[2025-03-07 11:19] LABS: Basophils Absolute Auto 0.1 X10*3/uL (0.0-0.2); Basophils Percent Auto 0.6 % (0-2); Eosinophils Percent Auto 0.2 % (0-4); Hematocrit 40.3 % (37.0-47.0); Hemoglobin 14.2 g/dl (12.0-16.0); Imm Gran Abs Auto 0.06 X10*3/uL (0.00-0.03); Imm Gran Pct Auto 0.5 % (0.0-0.4); Lymphocytes Absolute Auto 1.9 X10*3/uL (1.2-4.9); Lymphocytes Percent Auto 14.9 % (20-40); Mean Corpuscular HGB Conc 35.2 g/dl (31.0-35.0); Mean Corpuscular Hemoglobin 30.5 pg (27.0-33.0); Mean Corpuscular Volume 86.5 fL (80.0-98.0); Mean Platelet Volume 9.7 fL (9.4-12.3); Monocytes Absolute Auto 0.5 X10*3/uL (0.1-1.2); Monocytes Percent Auto 3.9 % (2-11); Neutrophils Absolute Auto 10.1 x10*3/uL (2.0-8.3); Neutrophils Percent Auto 79.9 % (45-73); Platelet Count 317 X10*3/uL (160-400); Red Blood Count 4.66 X10*6/uL (4.20-5.50); Red Cell Distribution Width 12.4 % (11.0-16.0); White Blood Count 12.6 X10*3/uL (4.8-10.8)
--- NOTE | 2025-03-07 11:23 | ED_ITS ---
HPI - General Adult General Chief complaint: Abdominal Pain Stated complaint: ABD PAIN Time Seen by Provider: 03/07/25 11:22 Source: patient, family (patient's uncle) and EMS Mode of arrival: EMS Limitations: no limitations History of Present Illness ED Provider: Tracy Dash PA-C HPI narrative: 30 year old female with a past medical history of recent UTI, constipation presents to the ED with her uncle complaining of RLQ abdominal pain that radiates to her back. Patient states that she had a UTI 2 weeks ago and was treated with macrobid, she only took it for 3 days because she felt better and then stopped taking the medication. Yesterday she had pain while urinating and developed diarrhea, so she decided to restart the antibiotic. Patient states that this morning she woke up with excruciating abdominal and right sided back pain, she then started vomiting. She reports that her last menstrual cycle was 2 weeks ago. Denies headache, chest pain, or SOB. Denies vaginal lesions or differing discharge. MD complaint: RLQ and flank pain Onset (ago): hour(s) Location: abdomen Radiation: flank Relieving factors: none Exacerbating factors: none Associated symptoms: nausea/vomiting Treatments prior to arrival: other (Macrobid that she did not finish) Related Data Previous Rx's ?Medication ?Instructions ?Recorded lorazepam 1 mg tablet 1 mg PO DAILY PRN anxiety 14 days 12/12/22 #14 tabs albuterol sulfate 90 mcg/actuation 1 puff inhalation Q6H PRN Wheezing 04/28/24 aerosol inhaler and bronchospasm #8.5 grams Zepbound 5 mg/0.5 mL subcutaneous 5 mg (0.5 mL) subcut QWEEK #2 mL 01/05/25 pen injector (tirzepatide (weight loss)) nitrofurantoin 100 mg PO Q12H 5 days #10 caps 02/18/25 monohydrate/macrocrystals 100 mg capsule (Macrobid) phenazopyridine 200 mg tablet 200 mg PO TID PRN pain 2 days #6 02/18/25 (Pyridium) tabs linaclotide 72 mcg capsule 72 mcg PO DAILY #30 caps 02/23/25 (Linzess) naproxen 500 mg tablet 500 mg PO BID 7 days #14 tabs 03/07/25 omeprazole 20 mg capsule,delayed 20 mg PO DAILY #7 caps 03/07/25 release prednisone 20 mg tablet 20 mg PO DAILY 5 days #5 tabs 03/07/25 sulfamethoxazole 800 1 tab PO Q12H 5 days #10 tabs 03/07/25 mg-trimethoprim 160 mg tablet (Bactrim DS) tamsulosin 0.4 mg capsule 0.4 mg PO DAILY #7 caps 03/07/25 Allergies Allergy/AdvReac Type Severity Reaction Status Date / Time amoxicillin [AMOXICILLIN] Allergy Unknown Rash Verified 03/07/25 11:06 Penicillins [PENICILLINS] Allergy Unknown Rash Verified 02/18/25 09:18 tramadol AdvReac Vomiting Verified 02/18/25 09:18 Review of Systems 2 Constitutional: Constitutional: Reports no additional constitutional complaints, Denies chills, Denies fever(s) and Denies night sweats Eyes: Eyes: Reports no additional eye complaints, Denies blurry vision, Denies change in vision, Denies diplopia, Denies eye discharge, Denies loss of vision and Denies eye pain ENT: Denies dizziness Cardiovascular: Cardiovascular: Reports no additional cardiovascular complaints, Denies chest pain, Denies lightheadedness, Denies Loss of Consciousness and Denies dyspnea Respiratory: Respiratory: Reports no additional respiratory complaints and Denies dyspnea Gastrointestinal: Gastrointestinal: Reports no additional gastrointestinal complaints, Reports abdominal pain (RLQ), Denies melena, Denies hematochezia, Denies change in stool character, Reports nausea and Reports vomiting Genitourinary: Genitourinary: Reports as per HPI, Denies hematuria, Denies urinary frequency, Reports dysuria, Denies urinary incontinence, Denies urinary hesitancy and Denies urinary urgency Musculoskeletal: Musculoskeletal: Reports no additional musculoskeletal complaints, Denies numbness and Denies tingling Neurologic: Denies dizziness, Denies loss of vision, Denies numbness and Denies tingling Psychiatric: Psychiatric: Reports no additional psychiatric complaints Endocrine: Endocrine: Reports no additional endocrine complaints Hematologic/Lymphatic: Hematologic/Lymphatic: Reports no additional hematologic/lymphatic complaints Allergic/Immunologic: Allergic/Immunologic: Reports no additional allergic/immunologic complaints PMFSH Past Medical History Attestation statement: The following information was validated with the patient. (all information validated with the patient's uncle) Source: old records reviewed, obtained from family (patient's uncle provided additional history and confirmed the history provided by the patient. ) and nursing notes reviewed Medical History Intermittent palpitations Overweight (BMI 25.0-29.9) Hx of anxiety disorder Constipation Mixed dyslipidemia Upper back pain, chronic Vitamin D deficiency Mild intermittent asthma IBS (irritable bowel syndrome) Surgical History Hx of breast reduction, elective History of wisdom tooth extraction Family History Family History Father Diabetes mellitus HTN (hypertension) Stroke Back problem Kidney stone Mental health disorder Mother Anxiety Ovarian cyst Mental health disorder Maternal Grandmother Unknown family medical history Maternal Grandfather Unknown family medical history Paternal Grandmother Unknown family medical history Alzheimer's disease Paternal Grandfather Unknown family medical history Brother No problems noted. Brother No problems noted. Brother No problems noted. Sister No problems noted. Sister No problems noted. Sister No problems noted. Sister No problems noted. Social History Social History Household Members: Family Housing: House Alcohol intake: never Patient Tobacco Use Status: Never used Tobacco e-Cigarette/Vaping Use: Never Used service: No Current occupational status: employed Cognitive needs: No Hearing needs: No Vision needs: Yes Physical Exam ED Vital Signs: Vital Signs - 24 hr 03/07/25 11:16 03/07/25 12:00 03/07/25 14:00 Temperature 97.8 F 98.1 F 98.3 F Pulse Rate 97 70 81 Respiratory Rate 16 16 16 Blood Pressure 134/76 111/76 121/73 Pulse Oximetry 95 100 100 Oxygen Delivery Method Room Air Room Air Room Air 03/07/25 15:17 Temperature 98.3 F Pulse Rate 81 Respiratory Rate 16 Blood Pressure 121/73 Pulse Oximetry 100 Oxygen Delivery Method Room Air BMI result Body Mass Index 25.8 Const General: cooperative, alert and awake; No comfortable Nutritional Appearance: well nourished Orientation/consciousness: patient oriented x3 HENMT Head: Yes normal to inspection and Yes atraumatic Ears: hearing grossly normal bilaterally and external ears normal General nose exam: Normal external nose present, no nasal discharge noted and no epistaxis Face and sinus: Yes normal facial exam, No abrasion and No laceration Mouth: Normal oral and palatal mucosa present, no drooling and no muffled voice Eyes General: appearance normal, both eyes and all related structures Periorbital: periorbital findings normal Eyelids: Yes eyelids normal Conjunctivae: conjunctivae normal Pupils: Equal, round and reactive pupils present EOM: EOMs intact bilaterally Neck Neck: Yes normal visual inspection, Yes full ROM and Yes no lymphadenopathy Resp Effort & Inspection: normal respiratory effort and able to speak in complete sentences GI Inspection: Yes normal to inspection Palpation (GI): Tenderness to palpation present (GI) in the RLQ General: Yes CVA tenderness (right side) Back/Spine/Pelvis Back: CVA tenderness (right side) Skin General skin exam: no rashes or lesions noted Neuro General: patient oriented x3, moves all extremities and CN's II-XI intact bilaterally Cranial nerves: Yes Equal, round and reactive pupils present Cognition (Neuro): normal cognition Extrem General: Yes normal to inspection, Yes full ROM and Yes capillary refill normal Psych Appearance: grossly normal Mental Status: mental status grossly normal Affect: normal affect Attitude: cooperative Thought process: Normal thought process present Thought content: Normal thought content present Insight: Good insight present (Psych) Medications Administered Discontinued Medications Generic Name Dose Route Start Last Admin Trade Name Freq PRN Reason Stop Dose Admin Ceftriaxone Sodium 1 gm 03/07/25 11:37 03/07/25 12:22 Ceftriaxone Sodium 1 Gm Vial IVPUSH 03/07/25 11:38 1 gm ONCE ONE Administration Diphenhydramine HCl 25 mg 03/07/25 11:37 03/07/25 11:50 Diphenhydramine Hcl 50 Mg/Ml Vial IVPUSH 03/07/25 11:38 25 mg ONCE ONE Administration Sodium Chloride 1,000 mls @ 999 mls/hr 03/07/25 11:45 03/07/25 13:43 Ns IV 03/07/25 12:45 Infused .Q1H1M GERA Infusion Sodium Chloride 1,000 mls @ 999 mls/hr 03/07/25 14:15 03/07/25 15:10 Ns IV 03/07/25 15:15 Infused .Q1H1M GERA Infusion Iohexol 85 ml 03/07/25 13:05 03/07/25 13:05 Iohexol 350 Mg/Ml 100 Ml Infus..Btl IV 03/07/25 13:06 85 ml ONCE ONE Administration Morphine Sulfate 4 mg 03/07/25 11:37 03/07/25 11:50 Morphine Sulfate 4 Mg/Ml Cartridge IVPUSH 03/07/25 11:38 4 mg ONCE ONE Administration Protocol Ondansetron HCl 4 mg 03/07/25 11:37 03/07/25 11:50 Ondansetron Hcl 4 Mg/2 Ml Vial IVPUSH 03/07/25 11:38 4 mg ONCE ONE Administration Medical Decision Making Medical Decision Making [facility] Narrative: Patient is a 30 year old assigned female at with a history of recent UTI, migraine, and asthma presenting to the emergency department today with right lower quadrant abdominal pain, nausea, and vomiting. Patient's physical exam was as noted in the physical exam portion of this note. Patient's blood work showed an elevated WBC count of 12.6 but otherwise unremarkable. Patient's urine showed no acute process. Patient's CT of the abdomen / pelvis showed 3mm stone at the right ureterovesicular junction causing mild right hydroureteronephrosis with questionable right pyelonephritis and cystitis. I spoke with the urologist, who recommended discharge home with flomax, prednisone, and bactrim. I explained my physical exam findings as well as all test results to the patient and the patient's uncle. I answered all questions asked by the patient and the patient's uncle. Patient received IV ceftriaxone, benadryl, morphine, zofran, and 2 liters of fluids which, upon re-evaluation, she stated it helped her symptoms significantly. I stressed the importance of the patient taking her medication as directed (either prescribed or as the over the counter packaging recommends). I stressed the importance of the patient following up with her primary care provider and [facility]. I stressed the importance of the patient returning to the emergency department immediately if her symptoms were to worsen or if she were to develop any dizziness, shortness of breath, difficulty breathing, chest pain, blurry vision, loss of vision, nausea, vomiting, abdominal pain, fever, chills, back pain, or any other complaints. Patient and the patient's uncle verbalized agreement and understanding with this treatment plan and discharge. Differential Diagnosis Differential Diagnoses: The differential diagnosis associated with the presentation includes Appendicitis Kidney stone Obstructing kidney stone UTI Pyelonephritis Admission/Observation Consideration of admission/observation: Escalation of care including admission/observation considered Patient would have been admitted to the hospital had her work up had any findings where hospital admission was appropriate and her clinical presentation warranted hospital admission. Consult Healthcare Provider Management of the patient was discussed with: Plate Cutter (spoke with the Urology team as noted in the MDM Rationale portion of this note. ) Lab Data [facility] Lab Attestation statement: I reviewed the patient's lab results. My interpretation of these results are in the MDM Rationale portion of this note. 03/07/25 11:12 03/07/25 11:12 Labs: Lab Results 03/07/25 03/07/25 Range/Units 11:12 11:49 WBC 12.6 H (4.8-10.8) X10*3/uL RBC 4.66 (4.20-5.50) X10*6/uL Hgb 14.2 (12.0-16.0) g/dl Hct 40.3 (37.0-47.0) % MCV 86.5 (80.0-98.0) fL MCH 30.5 (27.0-33.0) pg MCHC 35.2 H (31.0-35.0) g/dl RDW 12.4 (11.0-16.0) % Plt Count 317 (160-400) X10*3/uL MPV 9.7 (9.4-12.3) fL Immature Gran % (Auto) 0.5 H (0.0-0.4) % Neut % (Auto) 79.9 H (45-73) % Lymph % (Auto) 14.9 L (20-40) % [place]cho % (Auto) 3.9 (2-11) % Eos % (Auto) 0.2 (0-4) % Baso % (Auto) 0.6 (0-2) % Lymph # (Auto) 1.9 (1.2-4.9) X10*3/uL [place] # (Auto) 0.5 (0.1-1.2) X10*3/uL Eos # (Auto) 0.0 (0.0-0.4) X10*3/uL Baso # (Auto) 0.1 (0.0-0.2) X10*3/uL Abs Immat Gran (auto) 0.06 H (0.00-0.03) X10*3/uL Absolute Neuts (auto) 10.1 H (2.0-8.3) x10*3/uL Absolute Nucleated RBC 0.000 (0.0-0.012) X10*3/uL Nucleated RBC % (auto) 0.0 (0.0-0.2) /100WBC Sodium 141 (135-145) mmol/L Potassium 3.6 (3.3-5.1) mmol/L Chloride 108 (96-108) mmol/L Carbon Dioxide 21 L (22-29) mmol/L Anion Gap 16 (12-20) BUN 11 (9-16) mg/dL Creatinine 1.04 (0.5-1.4) mg/dL Estim Creat Clear Calc 77.1 Estimated GFR > 60 Random Glucose 116 H (60-115) mg/dL Lactic Acid 1.9 (0.5-2.0) mmol/L Calcium 9.6 (8.4-10.2) mg/dL Magnesium 1.9 (1.6-2.6) mg/dL Total Bilirubin 0.5 (0.0-1.0) mg/dL AST 20 (5-31) U/L ALT 24 (0-31) U/L Alkaline Phosphatase 71 (39-117) U/L Total Protein 8.0 (6.5-8.0) g/dL Albumin 4.7 (3.5-5.0) g/dL Lipase 22 (8-78) U/L Beta HCG, Quant < 2 mIU/mL Urine Color Sac Urine Appearance Hazy Urine pH 8.5 (5.0-9.0) Ur Specific Ransom 1.010 (1.005-1.025) Urine Protein 100 (2+) H (Neg-Trace) mg/dL Urine Glucose (UA) 250 H (Negative) mg/dL Urine Ketones >=80 (Negative) mg/dL Urine Blood Negative (Negative) Urine Nitrite Negative (Negative) Ur Leukocyte Esterase Negative (Negative) Urine RBC 0-2 (0-2) /HPF Urine WBC 0-5 (0-5) /HPF Ur Squamous Epith Cells 6-10 (0-2) /HPF Urine Bacteria Trace (None Seen) Hyaline Casts 0-2 (0-2) /LPF Independent Interpretation I performed an independent interpretation of an: CT Scan Interpretation: My interpretation is in agreement with the radiologist's impression of this imaging study. L Report Number: [id number]: Total DLP = 482.00 mGy-cm CLINICAL HISTORY: RLQ pain, flank pain, concern for pyelo CT abdomen and pelvis with contrast Comparison: CT - CT ABDOMEN PELVIS W IV CON - 03/07/25 12:[address]/SR - CT ABDOMEN PELVIS W IV CON - 11/10/24 23:[address] - CT ABDOMEN PELVIS W IV CON - 11/10/24 23:04 EST US - ABDOMEN ULTRASOUND [id number] - 11/08/17 09:22 EST Findings: No consolidation at the lung bases. Unremarkable gallbladder. Questionable mild bladder wall thickening. Focal fat at the falciform ligament. There is a 3 mm stone at the right ureterovesicular junction protruding into the bladder which causes mild right hydroureteronephrosis. There is questionable focal decreased enhancement in the upper pole of the right kidney ( series 3, image 29 and series 6, image 68). No left hydronephrosis. No nephrolithiasis. The other solid organs are unremarkable. No bowel wall thickening or dilation. A normal appendix is identified. Normal vasculature. No lymphadenopathy. No ascites. No acute osseous abnormality. Impression: 3 mm stone at the right ureterovesicular junction causing mild right hydroureteronephrosis. Questionable right pyelonephritis and cystitis; correlate with urinalysis. This document has been electronically signed by: Marlen Srivastava MD on 03/07/2025 13:56:33 Dictated By: Marlen Berry MD Signed By: Electronically signed by Marlen Berry MD 03/07/25 1793 Radiology Impression Discussion of test interpretation with radiology: I have reviewed the radiologist's reading. Independent Historian Clinical information obtained from an independent historian. History obtained from or confirmed by: EMS (EMS provided additional history and confirmed the history provided by the patient. ) and Other (Patient's uncle provided additional history and confirmed the history provided by the patient. ) Prescription Management I considered prescription management with: Pain Medication (patient was prescribed pain medication) and Antibiotic (patient prescribed an antibiotic) Critical Care Time Critical Care Time Critical Care Time: Yes Total Critical Care Time: 34 Attestation: I spent 34 minutes of Critical Care Time with this patient. This does not include time spent on separately reported billable procedures. Discharge Plan Discharge Clinical Impression: Kidney stone Patient Disposition: Home, Self-Care Instructions: Kidney Stones (ED) Additional Instructions: Follow up with your primary care provider and the urologist office. Take your medication as prescribed. Return to the emergency department immediately if your symptoms worsen or if you develop any numbness, tingling, dizziness, shortness of breath, difficulty breathing, chest pain, blurry vision, loss of vision, nausea, vomiting, abdominal pain, fever, chills, back pain, or any other complaints. Please see the information below about our Patient Portal. If you are not yet enrolled in the [facility] Patient Portal, you will receive an enrollment email invitation following your visit to any [facility] setting. You may also self-enroll in the Patient Portal by visiting our website: [email or web address] The following information is required to access the Patient Portal: - Your [facility] Medical Record Number - Your personal home email address (must match what is in your electronic medical record, Registration staff can assist with this) - Name - Date of Capabilities of the Patient Portal: - Message some providers - View upcoming appointments - Access your health summary, medical history, and visit history - View current conditions and allergies - View procedure and lab results - View your medications, including guidelines, side effects, and precautions - Complete pre-appointment questionnaires requested by your provider - Ready summary reports of your office visits and procedures To access the Patient Portal Mobile [employer], follow these directions: - Search [facility] in the [employer] Store or [employer] Store - Download the [facility] - Search for [facility] - Enter your login/password Prescriptions: New prednisone 20 mg tablet 20 mg PO DAILY 5 Days Qty: 5 0RF tamsulosin 0.4 mg capsule 0.4 mg PO DAILY Qty: 7 0RF naproxen 500 mg tablet 500 mg PO BID 7 Days Qty: 14 0RF omeprazole 20 mg capsule,delayed release(DR/EC) 20 mg PO DAILY Qty: 7 0RF sulfamethoxazole-trimethoprim [Bactrim DS] 800-160 mg tablet 1 tab PO Q12H 5 Days Qty: 10 0RF No Action lorazepam 1 mg tablet 1 mg PO DAILY PRN (Reason: anxiety) 14 Days Qty: 14 0RF Zepbound 5 mg/0.5 mL pen injector 5 mg subcut QWEEK Qty: 2 3RF Linzess 72 mcg capsule 72 mcg PO DAILY Qty: 30 0RF albuterol sulfate 90 mcg/actuation HFA aerosol inhaler 1 puff inhalation Q6H PRN (Reason: Wheezing and bronchospasm) Qty: 8.5 3RF nitrofurantoin monohyd/m-cryst [Macrobid] 100 mg capsule 100 mg PO Q12H 5 Days Qty: 10 0RF Rx Instructions: must administer with a meal/food phenazopyridine [Pyridium] 200 mg tablet 200 mg PO TID PRN (Reason: pain) 2 Days Qty: 6 0RF Referrals: [facility] [Provider Group] ([facility] will be contacting you within 2 business days from today (03/07/2025). During this phone call they will inform you when your follow up appointment will be scheduled. If you have NOT received a call from [facility] in 2 business days - please call the office at the number listed above. ) Luisa Manriquez MD [Primary Care Provider] - Stand Alone Forms: Work/School Release Interventions: ED Discharge Assessment Last Done: 03/07/25 15:17 Discharge Date/Time: 03/07/25 15:18 Print Language: Belarusian
[2025-03-07 11:39] LABS: Alanine Aminotransferase 24 U/L (0-31); Albumin Level 4.7 g/dL (3.5-5.0); Alkaline Phosphatase 71 U/L (39-117); Anion Gap 16 (12-20); Aspartate Amino Transferase 20 U/L (5-31); Bilirubin Total 0.5 mg/dL (0.0-1.0); Blood Urea Nitrogen 11 mg/dL (9-16); Calcium 9.6 mg/dL (8.4-10.2); Carbon Dioxide 21 mmol/L (22-29); Chloride 108 mmol/L (96-108); Creatinine Clr Calc Pharmacy 77.1; Estimated Glomerular Filt Rate > 60; Glucose Random 116 mg/dL (60-115); Lipase 22 U/L (8-78); Magnesium 1.9 mg/dL (1.6-2.6); Potassium 3.6 mmol/L (3.3-5.1); Sodium 141 mmol/L (135-145)
[2025-03-07 11:45] LABS: HCG Quantitative < 2 mIU/mL
[2025-03-07] MEDS: ondansetron HCL 4 MG/2 ML VIAL IVPUSH (11:50)
[2025-03-07] MEDS: diphenhydrAMINE HCL 50 MG/ML VIAL 25 MG IVPUSH (11:50)
[2025-03-07] MEDS: Morphine Sulfate 4 MG/ML CARTRIDGE IVPUSH (11:50)
[2025-03-07] MEDS: 0.9 % Sodium Chloride 1,000 ML 999 ML IV ×2 (11:52→14:15)
[2025-03-07 12:00] VITALS: BP 111/76; PULSE 70; RESP 16; TEMP 36.7; O2SAT 100
[2025-03-07 12:07] LABS: Appearance Urine Hazy; Color Urine Orange; Glucose Urine UA 250 mg/dL (Negative); PH 8.5 (5.0-9.0); UMIC TRIGGER UACC YES; Urine Blood Negative (Negative); Urine Ketones >=80 mg/dL (Negative); Urine Protein 100 (2+) mg/dL (Neg-Trace)
[2025-03-07 12:09] LABS: Lactic Acid 1.9 mmol/L (0.5-2.0)
[2025-03-07 12:13] LABS: Nitrite Urine Negative (Negative)
[2025-03-07 12:14] LABS: Leukocyte Esterase Urine Negative (Negative)
[2025-03-07 12:15] LABS: Bacteria Urine Trace (None Seen); Hyaline Casts Urine 0-2 /LPF (0-2); RBC Urine 0-2 /HPF (0-2); WBC Urine 0-5 /HPF (0-5)
[2025-03-07] MEDS: cefTRIAXone sodium 1 GM VIAL IVPUSH (12:22)
[2025-03-07] MEDS: iohexoL 350 MG/ML 100 ML INFUS..BTL 85 ML IV (13:05)
[2025-03-07 14:00] VITALS: BP 121/73; PULSE 81; RESP 16; TEMP 36.8; O2SAT 100
[2025-03-07 15:17] VITALS: BP 121/73; PULSE 81; RESP 16; TEMP 36.8; O2SAT 100
== END 2025-03-07 15:18 | disposition home or self-care (01) ==
PROVIDERS: Physician Assistant Medical; Emergency Provider Emergency Medicine; PCP Internal Medicine
DX: N20.0 Calculus of kidney (principal); R10.2 Pelvic and perineal pain; R11.2 Nausea with vomiting, unspecified; R10.31 Right lower quadrant pain; Z79.899 Other long term (current) drug therapy
CPT/HCPCS: 36415; 74177; 80053; 81001; 81003; 83605; 83690; 83735; 84702; 85025; 87040; 96361; 96374; 96375; 99283; 99284; J0696; J1200; J2270; J2405; Q9967

== ENCOUNTER → 2025-03-07 11:37 | Outpatient (BNV) | payer OTHER, SELFPAY | PROVIDERS: PCP Internal Medicine; Visit Provider Radiology Diagnostic Radiology | DX: N20.1 Calculus of ureter (principal) | CPT/HCPCS: 74177 ==

== ENCOUNTER 2025-03-10 10:35 | Emergency (ER) | payer OTHER, SELFPAY ==
[2025-03-10 10:39] VITALS: BP 105/60; PULSE 94; RESP 16; TEMP 36.4; O2SAT 97; BMI 26.7
--- NOTE | 2025-03-10 11:17 | ED_ITS ---
HPI - Female Genitourinary General Chief complaint: Urogenital-Female Stated complaint: Kidney stone Time Seen by Provider: 03/10/25 11:13 Related Data Previous Rx's ?Medication ?Instructions ?Recorded lorazepam 1 mg tablet 1 mg PO DAILY PRN anxiety 14 days 12/12/22 #14 tabs albuterol sulfate 90 mcg/actuation 1 puff inhalation Q6H PRN Wheezing 04/28/24 aerosol inhaler and bronchospasm #8.5 grams Zepbound 5 mg/0.5 mL subcutaneous 5 mg (0.5 mL) subcut QWEEK #2 mL 01/05/25 pen injector (tirzepatide (weight loss)) nitrofurantoin 100 mg PO Q12H 5 days #10 caps 02/18/25 monohydrate/macrocrystals 100 mg capsule (Macrobid) phenazopyridine 200 mg tablet 200 mg PO TID PRN pain 2 days #6 02/18/25 (Pyridium) tabs linaclotide 72 mcg capsule 72 mcg PO DAILY #30 caps 02/23/25 (Linzess) naproxen 500 mg tablet 500 mg PO BID 7 days #14 tabs 03/07/25 omeprazole 20 mg capsule,delayed 20 mg PO DAILY #7 caps 03/07/25 release prednisone 20 mg tablet 20 mg PO DAILY 5 days #5 tabs 03/07/25 sulfamethoxazole 800 1 tab PO Q12H 5 days #10 tabs 03/07/25 mg-trimethoprim 160 mg tablet (Bactrim DS) tamsulosin 0.4 mg capsule 0.4 mg PO DAILY #7 caps 03/07/25 morphine 15 mg immediate release 15 mg PO Q8H PRN pain 3 days #5 03/10/25 tablet tabs ondansetron 4 mg disintegrating 4 mg PO Q8H PRN nausea and 03/10/25 tablet vomiting #10 tabs Allergies Allergy/AdvReac Type Severity Reaction Status Date / Time amoxicillin [AMOXICILLIN] Allergy Unknown Rash Verified 03/10/25 10:39 Penicillins [PENICILLINS] Allergy Unknown Rash Verified 03/10/25 10:39 tramadol AdvReac Vomiting Verified 03/10/25 10:39 [facility] Past Medical History Medical History Intermittent palpitations Overweight (BMI 25.0-29.9) Hx of anxiety disorder Constipation Mixed dyslipidemia Upper back pain, chronic Vitamin D deficiency Mild intermittent asthma IBS (irritable bowel syndrome) Surgical History Hx of breast reduction, elective History of wisdom tooth extraction Family History Family History Father Diabetes mellitus HTN (hypertension) Stroke Back problem Kidney stone Mental health disorder Mother Anxiety Ovarian cyst Mental health disorder Maternal Grandmother Unknown family medical history Maternal Grandfather Unknown family medical history Paternal Grandmother Unknown family medical history Alzheimer's disease Paternal Grandfather Unknown family medical history Brother No problems noted. Brother No problems noted. Brother No problems noted. Sister No problems noted. Sister No problems noted. Sister No problems noted. Sister No problems noted. Social History Social History Household Members: Family Housing: House Alcohol intake: never Patient Tobacco Use Status: Never used Tobacco Smoked in Last 30 Days: No e-Cigarette/Vaping Use: Never Used Use of substances other than those prescribed or required for medical reasons: No Advance Directives: No Advance Directives Information Provided: No Patient : No service: No Current occupational status: employed Cognitive needs: No Hearing needs: No Vision needs: Yes Physical Exam Vital Signs: Vital Signs: Last Vital Signs Temp 98.0 F 03/10/25 15:17 Pulse 82 03/10/25 15:17 Resp 18 03/10/25 15:17 BP 112/60 03/10/25 15:17 Pulse Ox 98 03/10/25 15:17 O2 Del Method Room Air 03/10/25 15:17 BMI result Body Mass Index 26.7 Medications Administered Discontinued Medications Generic Name Dose Route Start Last Admin Trade Name Freq PRN Reason Stop Dose Admin Ketorolac Tromethamine 15 mg 03/10/25 11:15 03/10/25 11:24 Ketorolac Tromethamine 15 Mg/Ml Vial IM 03/10/25 11:16 15 mg ONCE ONE Administration Morphine Sulfate 15 mg 03/10/25 11:42 03/10/25 11:51 Morphine Sulfate Immed Release 15 Mg Tablet PO 03/10/25 11:43 15 mg ONCE ONE Administration Ondansetron HCl 4 mg 03/10/25 13:36 03/10/25 13:40 Ondansetron Odt 4 Mg Tab.Pasquale MENDEZ 03/10/25 13:37 4 mg ONCE ONE Administration Medical Decision Making Medical Decision Making [facility] Narrative: 30-year-old female with recently diagnosed 3 mm UVJ stone. She was prescribed Bactrim for presumably CT finding of bladder thickening however she is afebrile has no leukocytosis and there was no growth in the urine nor suggestion of UTI. Today she has RBCs only ultrasound is reassuring with no right-sided hydronephrosis or visible stone. Her bladder is full symptoms somewhat difficult to control but we eventually got her pain and nausea somewhat improved. Discharge to continue the home meds she was prescribed and I have written Zofran as well. Differential Diagnosis Differential Diagnoses: The differential diagnosis associated with the presentation includes Pyelonephritis, ureteral stone, obstructing stone, musculoskeletal pain Lab Data [facility] Lab Attestation statement: I reviewed the patient's lab results. Labs: Lab Results 03/10/25 Range/Units 12:45 Urine Color Yellow Urine Appearance Clear Urine pH 6.5 (5.0-9.0) Ur Specific [place] 1.015 (1.005-1.025) Urine Protein Trace (Neg-Trace) mg/dL Urine Glucose (UA) Negative (Negative) mg/dL Urine Ketones Negative (Negative) mg/dL Urine Blood Moderate (2+) H (Negative) Urine Nitrite Negative (Negative) Ur Leukocyte Esterase Trace H (Negative) Urine RBC >20 H (0-2) /HPF Urine WBC 0-5 (0-5) /HPF Ur Squamous Epith Cells 6-10 (0-2) /HPF Urine Bacteria None Seen (None Seen) Hyaline Casts 0-2 (0-2) /LPF Urine Test NEGATIVE (NEGATIVE) Procedures Procedure Narrative Procedure Narrative: EMERGENCY ULTRASOUND INTERPRETATION-Limited Retroperitoneal (Renal) [This study was ordered, performed, and interpreted by myself. The study reveals: Impression: NO EVIDENCE OF UROLOGIC OBSTRUCTION] [Indication: FLANK PAIN Bladder: ANECHOIC URINE Right Kidney: NO HYDRONEPHROSIS Performed by: Adam Kee MD Images were stored CPT: 57382] Discharge Plan Discharge Clinical Impression: Acute flank pain, Kidney stone Patient Disposition: Home, Self-Care Instructions: Kidney Stones (ED) Additional Instructions: DISCHARGE DIAGNOSES: Kidney stone persistent pain HISTORY OF PRESENTATION: ?Flank pain EMERGENCY DEPARTMENT COURSE,TESTS, TREATMENTS: While in the ED today we repeated your urine and did a bedside ultrasound that did not show any blockage of the right kidney which is reassuring. I reviewed your urine which did not grow any bacteria and did not show signs of UTI when you were here several days ago. We will increase your pain control if you develop shaking chills high fever return back to the emergency department DISCHARGE MEDICATIONS: ?[We have made no changes to your regular medication r egimen] we added several morphine tablets to your pain management FOLLOW-UP: ?Call your primary or general physician soon as possible to discuss your symptoms, your ED visit and to discuss follow up plans Call the urologist as previously instructed INSTRUCTIONS ?& RETURN PRECAUTIONS: If any symptoms change first call your primary physician, if it is after-hours your primary doctors office should have a provider ruby on rails software developer you can speak with. If the symptoms are severe or very concerning to you then call 911 or return to the ED. Return for high fever severe intractable pain Adam Kee MD Emergency Physician [facility] Prescriptions: New morphine 15 mg tablet 15 mg PO Q8H PRN (Reason: pain) 3 Days Qty: 5 0RF Rx Instructions: Partial Fill upon patient request. ondansetron 4 mg tablet,disintegrating 4 mg PO Q8H PRN (Reason: nausea and vomiting) Qty: 10 0RF No Action lorazepam 1 mg tablet 1 mg PO DAILY PRN (Reason: anxiety) 14 Days Qty: 14 0RF Zepbound 5 mg/0.5 mL pen injector 5 mg subcut QWEEK Qty: 2 3RF Linzess 72 mcg capsule 72 mcg PO DAILY Qty: 30 0RF prednisone 20 mg tablet 20 mg PO DAILY 5 Days Qty: 5 0RF tamsulosin 0.4 mg capsule 0.4 mg PO DAILY Qty: 7 0RF naproxen 500 mg tablet 500 mg PO BID 7 Days Qty: 14 0RF omeprazole 20 mg capsule,delayed release(DR/EC) 20 mg PO DAILY Qty: 7 0RF sulfamethoxazole-trimethoprim [Bactrim DS] 800-160 mg tablet 1 tab PO Q12H 5 Days Qty: 10 0RF albuterol sulfate 90 mcg/actuation HFA aerosol inhaler 1 puff inhalation Q6H PRN (Reason: Wheezing and bronchospasm) Qty: 8.5 3RF nitrofurantoin monohyd/m-cryst [Macrobid] 100 mg capsule 100 mg PO Q12H 5 Days Qty: 10 0RF Rx Instructions: must administer with a meal/food phenazopyridine [Pyridium] 200 mg tablet 200 mg PO TID PRN (Reason: pain) 2 Days Qty: 6 0RF Interventions: ED Discharge Assessment Last Done: 03/10/25 15:17 Discharge Date/Time: 03/10/25 15:18 Print Language: Hungarian
[2025-03-10] MEDS: Ketorolac Tromethamine 15 MG/ML VIAL IM (11:24)
[2025-03-10 11:29] VITALS: BP 116/81; PULSE 81; RESP 18; TEMP 36.7; O2SAT 99
[2025-03-10] MEDS: Morphine Sulfate Immed Release 15 MG TABLET PO (11:51)
--- OUTSIDE RECORDS SUMMARY | 2025-03-10 12:06 | XMS_ITS | Clinical Summary ---
Author Organization [facility] [address] [place] [address] [place] [address] Phone Care Team Providers Care Horse And Wagon Driver Name Role Phone Luisa Manriquez MD Primary Care Provider [phone] Allergies Active Allergy Reactions Criticality Noted Date Comments Amoxicillin Hives 09/09/2024 Penicillins Hives 09/09/2024 Medications LORazepam (ATIVAN) 1 mg tablet Take 1 Tablet by mouth every 6 hours as needed. - Oral Active linaCLOtide (LINZESS) 72 mcg capsule Take by mouth as needed. - Oral Active Encounters Date Type Department Care Team Description 01/05/2025 9:40 AM EDT Office Visit Obstetrics and Gynecology - [address] [phone] Purnima Oconnell, [place] Vaginal odor (Primary Dx); [...] care for your loved ones. For example, early childhood associate or elderly care for an older adult? [...] LAB MICROBIOLOGY METHOD 01/06/2025 2:12 PM EDT [facility] Brushing/Spatula Cervix uteri structure / Unknown 01/05/2025 9:53 AM EDT 01/06/2025 6:10 AM EDT us Purnima WOMACK LAB MOLECULAR DIAGNOSTICS OR DERABLES Final Result [facility] [address] [place] [address], * Trichomonas vaginalis antigen (01/05/2025 9:53 AM EDT) Trichomonas vaginalis Negative Negative 01/05/2025 7:30 PM EDT [facility] Swab Vaginal structure / Unknown Non-blood Collection / Unknown 01/05/2025 9:53 AM EDT 01/05/2025 9:54 AM EDT us Purnima WOMACK LAB MICROBIOLOGY - GENERAL O RDERABLES Final Result Performing Organization Address City/[facility]/ZIP Co de Phone Number [facility] [address] [place] [address], * Chlamydia trachomatis and Neisseria gonorrhoeae molecular study (01/05/2025 9:53 AM EDT) Pathologist [facility] Neisseria gonorrhoeae PCR Negative Negative LAB MOLECULAR DIAGNOSTICS METHOD 01/06/2025 2:57 PM EDT [facility] Chlamydia trachomatis PCR Negative Negative LAB MOLECULAR DIAGNOSTICS METHOD 01/06/2025 2:57 PM EDT [facility] Swab Vaginal structure / Unknown Non-blood Collection / Unknown 01/05/2025 9:53 AM EDT 01/05/2025 9:54 AM EDT us Purnima WOMACK LAB MICROBIOLOGY - GENERAL O RDERABLES Final Result Performing Organization Address [facility] Co de Phone Number [facility] [address] [place] [address], [place] [phone] * Wet prep, genital (01/05/2025 9:53 AM EDT) Pathologist [facility] Clue Cells, Wet Prep Negative Negative 01/05/2025 7:29 PM EDT [facility] Yeast, Wet Prep Negative Negative 01/05/2025 7:29 PM EDT [facility] Trichomonas, Wet Prep Indeterminate Negative 01/05/2025 7:29 PM EDT [facility] Comment:Refer to Trichomonas antigen. Swab Vaginal structure / Unknown Non-blood Collection / Unknown 01/05/2025 9:53 AM EDT 01/05/2025 9:54 AM EDT us Purnima WOMACK LAB MICROBIOLOGY - GENERAL O RDERABLES Final Result Performing Organization Address [facility]/ZIP Co de Phone Number [facility] [address] [place] [address], [place] [phone] * Pap smear (01/05/2025 9:53 AM EDT) Interpretation Negative for intraepithelial lesion or malignancy 01/07/2025 10:34 AM EDT [facility] General Categorization Negative 01/07/2025 10:34 AM EDT [facility] LMP 12/08/2024 01/07/2025 10:34 AM EDT [facility] Specimen Adequacy Satisfactory for evaluation, endocervical/long sformation zone component present 01/07/2025 10:34 AM EDT [facility] Pap Methodology Liquid Based Pap Test 01/07/2025 10:34 AM EDT [facility] Disclaimer Note: This pap test could not be imaged utilizing the [employer] System and required a manual review. The Pap test is a screening test which carries an inherent false negative rate. These test results should be correlated with the patient's clinical findings and history. This Pap test was processed using an automated screening system. Technical cytopathology services provided by [facility], at [address] [place] [address] (CLIA # [id number]/Diana Phipps MD, Supervisor Special Services.) 01/07/2025 10:34 AM EDT [facility] Console Pap Interpretation Reported 01/07/2025 10:34 AM EDT [facility] Brushing/Spatula Cervix uteri structure / Unknown 01/05/2025 9:53 AM EDT 01/05/2025 9:54 AM EDT us Purnima WOMACK LAB CYTOLOGY ORDERABLES Laly alcala Result [facility] [address] [place] [address], [place] [phone] from Last 3 Months Insurance [facility] [employer] Care Teams Horse And Wagon Driver Relationship Specialty Start Date End Date Luisa Manriquez MD [address] [place] [address] PCP - General Internal Medicine 01/02/25
[2025-03-10 12:53] LABS: Appearance Urine Clear; Color Urine Yellow; Glucose Urine UA Negative (Negative); Leukocyte Esterase Urine Trace (Negative); Nitrite Urine Negative (Negative); PH 6.5 (5.0-9.0); Specific Gravity - Urine 1.015 (1.005-1.025); UMIC TRIGGER UACC YES; Urine Blood Moderate (2+) (Negative); Urine Ketones Negative (Negative); Urine Protein Trace mg/dL (Neg-Trace)
[2025-03-10 12:57] LABS: UPreg QC Valid YES; Urine Pregnancy NEGATIVE (NEGATIVE)
[2025-03-10 12:59] LABS: Bacteria Urine None Seen (None Seen); Hyaline Casts Urine 0-2 /LPF (0-2); RBC Urine >20 /HPF (0-2); WBC Urine 0-5 /HPF (0-5)
[2025-03-10] MEDS: Ondansetron ODT 4 MG TAB.RAPDIS TRANSLINGU (13:40)
[2025-03-10 13:44] VITALS: BP 112/60; PULSE 82; RESP 18; O2SAT 98
--- NOTE | 2025-03-10 14:10 | PC.NURSE ---
This RN attempted to d/c pt. Pt nauseous/diaphoretic/shaky stating I don't feel good, i'm vomiting and super shaky MD Trejo made aware- Subling Zofran given. Charge nurse made aware of situation- ok for pt to stay briefly for medicine to work.
--- NOTE | 2025-03-10 14:24 | PC.NURSE ---
This RN covering primary RN Eunice's break, patient continues to c/o nausea/vomiting not feeling well . VSS. Patient has been up for DC for over 1 hour. hand surgeon made aware, patient transitioned to hallway bed.
--- NOTE | 2025-03-10 15:16 | PC.NURSE ---
MD at bedside talking with pt, pt states she is feeling better and ready for d/c. Ambulated out of ED with steady gait.
[2025-03-10 15:17] VITALS: BP 112/60; PULSE 82; RESP 18; TEMP 36.7; O2SAT 98
== END 2025-03-10 15:18 | disposition home or self-care (01) ==
PROVIDERS: Emergency Provider Emergency Medicine; PCP Internal Medicine
DX: N20.0 Calculus of kidney (principal); R10.9 Unspecified abdominal pain; Z79.899 Other long term (current) drug therapy
CPT/HCPCS: 81001; 81025; 96372; 99284; J1885

== ENCOUNTER 2025-04-08 08:16 | Outpatient (AMB) | payer OTHER, SELFPAY ==
--- OUTSIDE RECORDS SUMMARY | 2025-04-08 08:29 | XMS_ITS | Clinical Summary ---
Author Organization [facility] [address] [place] [address] [place] [phone] Phone Care Team Providers Care Unit Receptionist Name Role Phone Luisa Manriquez MD Primary Care Provider [phone] Allergies Active Allergy Reactions Criticality Noted Date Comments Amoxicillin Hives 09/09/2024 Penicillins Hives 09/09/2024 Medications LORazepam (ATIVAN) 1 mg tablet Take 1 Tablet by mouth every 6 hours as needed. - Oral Active linaCLOtide (LINZESS) 72 mcg capsule Take by mouth as needed. - Oral Active Social History Tobacco Use Types Packs/Day Years [...] your loved ones. For example, child support officer or elderly care for an older adult? [...] 09/17/2022 Hepatitis C Screening 09/17/2022 COVID-19 Vaccine (3 - 2023-2 5 season) 2024 08/02/2021, 07/12/2021 Influenza Vaccine [...] Procedure Name Priority Date/Time Associated Diagnosis Comments HPV WITH REFLEX GENOTYPE Routine 01/05/2025 9:53 AM EDT Cervical cancer screening from Last 3 Months or Most Recently Relevant to Health Maintenance Results * HPV with reflex genotype (01/05/2025 9:53 AM EDT) HPV Negative Negative LAB MICROBIOLOGY METHOD 01/06/2025 2:12 PM EDT [facility] ([facility] Brushing/Spatula Cervix uteri structure / Unknown 01/05/2025 9:53 AM EDT 01/06/2025 6:10 AM EDT us Purnima WOMACK LAB MOLECULAR DIAGNOSTICS OR DERABLES Final Result [facility] ([facility]) [facility] [address] [place] [address], from Last 3 Months or Most Recently Relevant to Health Maintenance Insurance [facility] [employer] Care Teams Unit Receptionist Relationship Specialty Start Date End Date Luisa Manriquez MD [address] [place] [address] PCP - General Internal Medicine 01/02/25
[2025-04-08 08:43] VITALS: BP 100/70; PULSE 80; TEMP 36.7; O2SAT 97; BMI 25.7
--- NOTE | 2025-04-08 08:43 | AM.OFFWIN_ITS ---
Intake Vital Signs 04/08/25 08:43 Height 5 ft 5 in Weight 154 lb 4 oz BMI 25.7 BP 100/70 Blood Pressure Location Rt brachial Position Sitting Pulse 80 Pulse Source Pulse Oximeter Temp 98.0 F Temp Source Oral Pulse Oximetry (%) 97 Oxygen Delivery Method Room Air Intake Visit Reasons: EP sore throat, cough Intake Note: Patient presents for a sore throat and dry cough times 5 days Patient Tobacco Use Status: Never used Tobacco Allergies amoxicillin (AMOXICILLIN) Allergy (Unknown, Verified 04/08/25 08:49) Rash Penicillins (PENICILLINS) Allergy (Unknown, Verified 04/08/25 08:49) Rash tramadol Adverse Reaction (Verified 04/08/25 08:49) Vomiting Do you need a note to return to daycare/school/sports/work: No HPI HPI Comments History of Present Illness Details History - The patient is a 30-year-old female pr esenting with a sore throat and cough persisting for five days. - The sore throat and cough began five d ays ago, with no associated fever, shortness of breath, or wheezing. - The patient has a history of COVID-19 infection in January. 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 - She has been managing symptoms with Ty lenol, cough medicine, and lozenges, but reports no significant improvement. - The patient has a history of asthma, f or which she uses an inhaler as needed. - She reports chronic constipation, whic h she considers normal for her. Physical Exam General: Cooperative, healthy appearing, comfortable and no acute distress Orientation/consciousness: Patient oriented x3 Limitations: No limitations Head: Normal to inspection Ears: Hearing grossly normal bilaterally, external ears normal and TM's normal bilaterally Nose: Normal external nose present, Normal nares present and No nasal discharge present Face and sinus: Normal facial exam and Yes sinuses nontender Mouth: Normal oral and palatal mucosa present and moist mucous membranes Throat: Yes tonsils normal, Yes uvula midline. Posterior oropharynx erythema, no exudates Eyes: Appearance normal, both eyes and all related structures Neck: Normal visual inspection, full ROM Respiratory: Clear to auscultation bilaterally. Normal respiratory effort, able to speak in complete sentences, no respiratory distress, not tachypneic, no tripod positioning and no use of accessory muscles. Cardiovascular: Regular rate and rhythm. Normal S1 and S2 Skin: No rashes or lesions noted Neuro: Patient oriented x3 Extremities: Normal to inspection and Yes no clubbing, cyanosis or edema PFSH Medical History Intermittent palpitations Overweight (BMI 25.0-29.9) Hx of anxiety disorder Constipation Mixed dyslipidemia Upper back pain, chronic Vitamin D deficiency Mild intermittent asthma IBS (irritable bowel syndrome) Surgical History Hx of breast reduction, elective History of wisdom tooth extraction Family History Father Diabetes mellitus HTN (hypertension) Stroke Back problem Kidney stone Mental health disorder Mother Anxiety Ovarian cyst Mental health disorder Maternal Grandmother Unknown family medical history Maternal Grandfather Unknown family medical history Paternal Grandmother Unknown family medical history Alzheimer's disease Paternal Grandfather Unknown family medical history Brother No problems noted. Brother No problems noted. Brother No problems noted. Sister No problems noted. Sister No problems noted. Sister No problems noted. Sister No problems noted. Social History Household Members: Family Housing: House Alcohol intake: never Patient Tobacco Use Status: Never used Tobacco e-Cigarette/Vaping Use: Never Used service: No Current occupational status: employed Cognitive needs: No Hearing needs: No Vision needs: Yes Review of Systems Const All systems reviewed & are unremarkable except as noted in HPI and below Physical Exam Vital Signs: Last Vital Signs Temp 98.0 F 04/08/25 08:43 Pulse 80 04/08/25 08:43 BP 100/70 04/08/25 08:43 Pulse Ox 97 04/08/25 08:43 Oxygen Delivery Method Room Air 04/08/25 08:43 BMI result Body Mass Index 25.7 Assessment & Plan Assessment & Plan (1) Viral upper respiratory infection: Code(s): J06.9 - Acute upper respiratory infection, unspecified Plan: - VSS, pt well appearing and PE unremarkable. - The rapid strep test was negative, indicating a likely viral upper respiratory infection. - Recommended rest and hydration to aid recovery from the viral infection. - Suggested the use of decongestants or expectorants if the patient has difficulty clearing mucus. Patient was informed and verbally consented to the use of an ambient scribe for clinic note documentation during this visit Coding Level of Care Code Est Pt Level 3 (81217) Diagnoses Viral upper respiratory infection J06.9
== END 2025-04-08 09:47 | disposition home or self-care (01) ==
PROVIDERS: PCP Internal Medicine; Visit Provider Physician Assistant
DX: J06.9 Acute upper respiratory infection, unspecified (principal); Z13.9 Encounter for screening, unspecified

== ENCOUNTER → 2025-04-08 08:16 | Outpatient (BNVA) | payer OTHER, SELFPAY | PROVIDERS: PCP Internal Medicine; Visit Provider Physician Assistant | DX: J06.9 Acute upper respiratory infection, unspecified (principal) | CPT/HCPCS: 87880; 99212 ==

== ENCOUNTER 2025-05-07 07:54 | Outpatient (AMB) | payer OTHER, SELFPAY ==
--- OUTSIDE RECORDS SUMMARY | 2025-05-07 07:56 | XMS_ITS | Clinical Summary ---
Author Organization [facility] [address] [place] [address] [place] [phone] Phone Care Team Providers Care Port Crane Operator Name Role Phone Luisa Manriquez MD Primary Care Provider [phone]- [phone] Allergies Active Allergy Reactions Criticality Noted Date [...] care for your loved ones. For example, special needs child caregiver or elderly care for an older adult? [...] 5 season) 2024 08/02/2021, 07/12/2021 Influenza Vaccine (#1) 2025 , 07/28/2016 Social Influencers of Health Screening 01/01/2026 01/01/2025 DTaP,Tdap,and Td Vaccines (2 - Td or Tdap) 01/02/2026 01/03/2016 Cervical Cancer Screening: HPV 01/05/2030 01/05/2025 Depression Screening Completed 01/03/2025 HIB Vaccines Aged Out No longer eligi [...] 5 Years) and At-Risk Patients (6 to 49 Years) Aged Out No longer eligible b [...] LAB MICROBIOLOGY METHOD 01/06/2025 2:12 PM EDT [facility] ([facility] Brushing/Spatula Cervix uteri structure / Unknown 01/05/2025 9:53 AM EDT 01/06/2025 6:10 AM EDT us Purnima WOMACK LAB MOLECULAR DIAGNOSTICS OR DERABLES Final Result [facility] ([facility] [address] [place] [address], from Last 3 Months or Most Recently Relevant to Health Maintenance Insurance [facility] Care Teams Port Crane Operator Relationship Specialty Start Date End Date Luisa Manriquez MD [address] [place] [address] PCP - General Internal Medicine 01/02/25
--- OUTSIDE RECORDS SUMMARY | 2025-05-07 07:56 | XMS_ITS | Patient Health Record ---
Author Organization [facility] Address [address] [place] [phone] Care Team Providers Care Retail Support Manager Name Role Phone MOMO PIZANO Primary Care Provider Cristi Ellsworth [phone] Allergies Allergen (clinical drug ingredient) Drug/Non Drug Allergy documented on EMR Reaction Allergy Type Onset Date Status Penicillin Unknown Drug Allergy Active amoxicillin Amoxicillin Unknown Drug Allergy Act destinee peanuts (uncoded) Unknown Allergy Ac tive Reason For Referral No Information Medications Medication SIG (Take, Route, Frequency, Duration) Notes Start Date End Date Status Hyoscyamine Sulfate 0.125 MG 1-2 tablets as needed Orally every 4-6 hours prn abdomianl discomfort/cramps for 30 days 03/26/2018 Active Social History Tobacco Use: Social History Observation Description Date Details (start date - stop date) Never Smoker NA - NA Tobacco Use/Smoking Question Answer Notes Patient is a nonsmoker Alcohol Screen Question Answer Notes Did you have a drink contain ing alcohol in the past year? Yes How often did you have a dri nk containing alcohol in the past year? Monthly or less (1 point) How many drinks did you have on a typical day when you were drinking in the past year? 1 or 2 drinks (0 point) How often did you have 6 or more drinks on one occasion in the past year? 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 celiac disease (R76.8) Active confirmed Problem 21822330 Irritable bowel syndrome, unspecified type (K58.9) Active confirmed Problem 79033823 Abdominal pain, lower (R10.30) Active confirmed Plan Of Treatment Future Test Test Name Order Date UPPER GI ENDOSCOPY 10/02/2017 Insurance Providers Payer Name Payer Address Payer Phone Subscriber Number Group Number Insured Name Patient Relationship to Insured Coverage Start Date Coverage End Date [facility] [address] [place] [address] [id number] BLANCA RAVI Self - patient is the insured Medical (General) History Medical History History ICD Code Denies OK,DM,CVA,Lung disease,renal dise ase Asthma--inhaler prn Colonoscopy with Dr. Talbert 2013--report describes that it was a normal exam--told of IBS Kidney stone BENIGN PAROXYSMAL POSITIONAL VERTIGO/BPP V 2018 EGD in 10/2017--minimal HH, neg. biopsies for celiac disease and H.pylori Neg. abodominal U/S in 10/2017
--- NOTE | 2025-05-07 08:06 | A.OFFVIS_ITS ---
Intake Visit Reasons: kidney stone Intake Note: New Patient presents for initial visit for kidney stone Urology Medications: none Blood Thinner: none Inspector Rubber Stamp Die Required: No Accompanied by: Self / Same As Patient Allergies amoxicillin (AMOXICILLIN) Allergy (Unknown, Verified 05/07/25 08:27) Rash Penicillins (PENICILLINS) Allergy (Unknown, Verified 05/07/25 08:27) Rash tramadol Adverse Reaction (Verified 05/07/25 08:27) Vomiting Medication List - Last Reconciled 05/07/25 by JESS Low albuterol sulfate 90 mcg/actuation 1 puff inhalation Q6H PRN fluoxetine mg PO linaclotide (Linzess) 72 mcg PO DAILY lorazepam 1 mg PO DAILY PRN 14 days Zepbound (tirzepatide (weight loss)) 5 mg (0.5 mL) subcut QWEEK NS HPI Comments Details: Devi is a pleasant 30-year-old female patient of Dr. Manriquez. She has a past medical history of intermittent palpitations, anxiety, constipation, dyslipidemia, vitamin-D deficiency, mild intermittent asthma, and IBS. She presents to the office today as a new patient for nephrolithiasis. In discussion with the patient today she reports having seeked emergency room care services 2 months ago for right-sided flank pain she had been experiencing at which time a CT of the abdomen was ordered and performed. These results were reviewed and communicated with the patient today. 03/08 question mild bladder wall thickening. There is a 3 mm stone at the right ureterovesical junction protruding into the bladder which causes mild right hydroureteronephrosis. No left-sided hydronephrosis or nephrolithiasis. She reports pain she had been experiencing has since subsided however she has now been experiencing left-sided flank pain. She does not recall passage of kidney stone. She reports a longstanding history of nephrolithiasis over the last 5 years however never followed up with a urologist in the past. She denies any previous surgical intervention for nephrolithiasis. She currently denies any bothersome urinary issues. She denies urinary urgency, urinary frequency, incontinence, nocturia, hematuria, dysuria, foul smelling urine, changes to urinary stream, fever, and or chills. She is happy with her current voiding parameters. We did discuss at length potential causes of nephrolithiasis and further interventions and risks and benefits of these interventions. We also discussed near future metabolic workup to include Litholink and labs. All questions were answered. She otherwise offers no other issues or concerns at this time. [facility] Medical History Intermittent palpitations Overweight (BMI 25.0-29.9) Hx of anxiety disorder Constipation Mixed dyslipidemia Upper back pain, chronic Vitamin D deficiency Mild intermittent asthma IBS (irritable bowel syndrome) Surgical History Hx of breast reduction, elective History of wisdom tooth extraction Family History Father Diabetes mellitus HTN (hypertension) Stroke Back problem Kidney stone Mental health disorder Mother Anxiety Ovarian cyst Mental health disorder Maternal Grandmother Unknown family medical history Maternal Grandfather Unknown family medical history Paternal Grandmother Unknown family medical history Alzheimer's disease Paternal Grandfather Unknown family medical history Brother No problems noted. Brother No problems noted. Brother No problems noted. Sister No problems noted. Sister No problems noted. Sister No problems noted. Sister No problems noted. Social History Household Members: Family Housing: House Alcohol intake: never Patient Tobacco Use Status: Never used Tobacco e-Cigarette/Vaping Use: Never Used service: No Current occupational status: employed Cognitive needs: No Hearing needs: No Vision needs: Yes Review of Systems Const All systems reviewed & are unremarkable except as noted in HPI and below Physical Exam Const General: cooperative, healthy appearing, comfortable, no acute distress, well developed, alert and awake Orientation/consciousness: patient oriented x3 Limitations: no limitations HEENT Head: Yes normal to inspection, Yes normocephalic and Yes atraumatic Ears: hearing grossly normal bilaterally Eyes General: appearance normal, both eyes and all related structures Neck Neck: Yes normal visual inspection and Yes trachea midline Chest Chest palpation & inspection: normal inspection of the chest Resp Effort & Inspection: normal respiratory effort and able to speak in complete sentences Cardio Rate: regular rate GI Inspection: Yes normal to inspection General: Yes no CVA tenderness Back/Spine/Pelvis Back: no CVA tenderness Skin General skin exam: no rashes or lesions noted Neuro General: patient oriented x3 Extrem General: Yes normal to inspection Psych Appearance: grossly normal and well kempt Mental Status: mental status grossly normal Speech and movement: Normal speech and movement present and Clear speech present Affect: normal affect Attitude: cooperative Thought process: Normal thought process present Thought content: Normal thought content present Insight: Fair insight present (Psych) Judgement: Fair judgement present (Psych) Assessment & Plan Assessment & Plan (1) Acute cystitis with hematuria: Code(s): N30.01 - Acute cystitis with hematuria Category: Medical Plan Unable to obtain urine for urinalysis as patient unable to void. Recent CT results reviewed with the patient today; as noted above. Pain she had been experiencing has since subsided however has had intermittent episodes of left-sided flank pain; will obtain renal ultrasound for further assessment evaluation. We discussed near future metabolic workup to include Litholink and labs. We also discussed the importance of adequate hydration relation to nephrolithiasis as well as overall health and well-being. We discussed adding 1 oz of lemon juice to water daily. She currently denies any bothersome urinary issues. Will obtain renal ultrasound. Follow-up in 1-3 months with imaging to be completed prior; or sooner with any issues, concerns, and or questions. Orders: Orders US renal BI Today N20.0 - Calculus of kidney Patient Instructions: The patient had an opportunity to ask questions regarding the treatment plan. All questions were answered. Physical exam, labs, and imaging were discussed and reviewed in detail. As well as risks, benefits, and discussion of treatment choices. No major barriers to understanding were identified. The patient expressed understanding and agreement with the above treatment plan. The patient was made aware they should contact our office by phone for worsening of their current condition, the appearance of new symptoms, or with any questions or concerns. Compliance is encouraged with any medications and follow up testing that is ordered. It is a privilege to be allowed the opportunity to participate in? your urological care.? Again, if you have any questions or concerns If you have any questions or concerns please do not hesitate to contact me. The office is [phone]. This note is constructed using voice recognition software. While every effort has been made to ensure accuracy licensed clinical social worker errors may have been included. Yours sincerely, JESS Low Coding Level of Care Code New Pt Level 3 (00096) Diagnoses Acute cystitis with hematuria N30.01
== END 2025-05-07 10:07 | disposition home or self-care (01) ==
LOC: HO.HUSH 07:55
PROVIDERS: PCP Internal Medicine; Visit Provider Nurse Practitioner Family
DX: N30.01 Acute cystitis with hematuria (principal)
CPT/HCPCS: 99203

== ENCOUNTER → 2025-05-07 07:54 | Outpatient (BNVA) | payer OTHER, SELFPAY | PROVIDERS: PCP Internal Medicine; Visit Provider Nurse Practitioner Family | DX: N13.30 Unspecified hydronephrosis (principal); N30.01 Acute cystitis with hematuria | CPT/HCPCS: 99202 ==

== ENCOUNTER 2025-05-19 11:26 | Outpatient (AMB) | payer OTHER, SELFPAY ==
--- NOTE | 2025-05-19 11:28 | A.OFFVIS_ITS ---
Vital Signs 05/19/25 11:33 Height 5 ft 5 in Weight 151 lb BMI 25.1 BP 118/64 Blood Pressure Location Rt brachial Position Sitting Pulse 94 Pulse Source Pulse Oximeter Pulse Oximetry (%) 98 Oxygen Delivery Method Room Air Intake Visit Reasons: bloody stool constipation Intake Note: New pt for initial eval of melena/hematochezia. CC; C.O. constipation, melena, hematochezia. Pt reports dark red blood per rectum. B/L LQ pain or cramping. Pt states she typically has 1 bowel movement per week. International Trade Specialist Required: No Accompanied by: Self / Same As Patient Allergies amoxicillin (AMOXICILLIN) Allergy (Unknown, Verified 05/19/25 11:28) Rash Penicillins (PENICILLINS) Allergy (Unknown, Verified 05/19/25 11:28) Rash tramadol Adverse Reaction (Verified 05/19/25 11:28) Vomiting HPI HPI bloody stool constipation: Details: 30-year-old female with past medical history of constipation, migraine headaches, dyslipidemia, asthma is here today for initial consultation. Patient was sent to us by her PCP. History of constipation for many years. Worse now that she is on Zepbound. Patient has been on it for the past few months. Patient reports that she last over 25 lb since she has been on the medication. Reports constipation. Started on Linzess 72 mcg, however feels like it is not helping her. Bowel movement only once a week. Patient reports straining and blood after having a bowel movement. Patient denies any family history of CRC. Family history of Crohn's disease. Patient reports postprandial abdominal bloating and epigastric pain. Acid reflux with certain food. Patient denies any nausea or vomiting. Reports dark, but not black stools. Patient had normal H&H in February. [facility] Medical History (Updated 05/19/25 @ 11:55 by ROXANNE Kinsey-) GERD (gastroesophageal reflux disease) Intermittent palpitations Overweight (BMI 25.0-29.9) Hx of anxiety disorder Constipation Mixed dyslipidemia Upper back pain, chronic Vitamin D deficiency Mild intermittent asthma IBS (irritable bowel syndrome) Surgical History Hx of breast reduction, elective History of wisdom tooth extraction Family History (Updated 05/19/25 @ 11:32 by LALITHA Amaro) Father Diabetes mellitus HTN (hypertension) Stroke Back problem Kidney stone Mental health disorder Mother Anxiety Ovarian cyst Mental health disorder Maternal Grandmother Unknown family medical history Maternal Grandfather Unknown family medical history Paternal Grandmother Unknown family medical history Alzheimer's disease Paternal Grandfather Unknown family medical history Brother No problems noted. Brother No problems noted. Brother No problems noted. Sister No problems noted. Sister No problems noted. Sister No problems noted. Sister No problems noted. Maternal Aunt Crohn's disease Social History Household Members: Family Housing: House Alcohol intake: never Patient Tobacco Use Status: Never used Tobacco e-Cigarette/Vaping Use: Never Used service: No Current occupational status: employed Cognitive needs: No Hearing needs: No Vision needs: Yes Review of Systems Const Denies weight gain and Denies weight loss ENT Reports no additional complaints, Denies dysphagia and Denies odynophagia Card Reports no additional complaints Resp Reports no additional complaints GI Reports abdominal pain (Epigastric), Denies belching, Denies melena, Reports bloating, Denies change in bowel habits, Reports constipation, Denies dysphagia, Denies excessive flatus, Denies dyspepsia, Reports heartburn, Denies diarrhea, Denies loose stools, Denies nausea, Denies odynophagia and Denies vomiting Reports no additional complaints Musc Reports no additional complaints Neuro Reports no additional complaints Psych Reports no additional complaints Endo Reports no additional complaints Physical Exam Vital Signs: Last Vital Signs Pulse 94 05/19/25 11:33 BP 118/64 05/19/25 11:33 Pulse Ox 98 05/19/25 11:33 Oxygen Delivery Method Room Air 05/19/25 11:33 BMI result Body Mass Index 25.1 Const General: healthy appearing, no acute distress and well developed Nutritional Appearance: well nourished Orientation/consciousness: patient oriented x3 Resp Effort & Inspection: normal respiratory effort, able to speak in complete sentences, no tracheal deviation and symmetric chest movement Auscultation: clear to auscultation bilaterally Cardio Rate: regular rate GI Inspection: Yes normal to inspection and No distended Palpation (GI): Soft to palpation, not firm, nontender and No hepatosplenomegaly present Auscultation: normal bowel sounds General: Yes no CVA tenderness Back/Spine/Pelvis Back: no CVA tenderness Skin General skin exam: elasticity normal, turgor normal and dry skin Neuro General: patient oriented x3 Psych Appearance: grossly normal Mental Status: mental status grossly normal Assessment & Plan Assessment & Plan (1) Constipation: Code(s): K59.00 - Constipation, unspecified Category: Medical Qualifiers: Constipation type: slow transit constipation Qualified Code(s): K59.01 - Slow transit constipation (2) GERD (gastroesophageal reflux disease): Code(s): K21.9 - Gastro-esophageal reflux disease without esophagitis Category: Medical Qualifiers: Esophagitis presence: esophagitis presence not specified Qualified Code(s): K21.9 - Gastro-esophageal reflux disease without esophagitis (3) Postprandial abdominal bloating: Code(s): R14.0 - Abdominal distension (gaseous) (4) Postprandial epigastric pain: Code(s): R10.13 - Epigastric pain Plan Patient will avoid dietary triggers and late night snacking. Staying upright for minimum 3 hours after meals discussed with patient. Will check for H pylori. If positive will treat empirically. Patient will start taking omeprazole in the morning. Patient reports abdominal pain, cramping and bloating postprandially. Also constipation. Will increase Linzess to 145 mcg daily. Check fecal calprotectin, have family history of Crohn's disease. Will check transglutaminase, lipase, CRP, vitamin-D, vitamin B12 and folate. Patient will return in 2 months, sooner on as needed basis. She is agreeable to this plan and verbalizes understanding of instructions. She was given the opportunity to ask questions and all questions answered. Thank you for allowing me to participate in her care Orders: Orders Calprotectin, Fecal Today R15.9 - Full incontinence of feces Transglutaminase IgA Today R10.9 - Unspecified abdominal pain Vitamin D 25-OH (D2 and D3) Today E55.9 - Vitamin D deficiency, unspecified Lipase Today R10.9 - Unspecified abdominal pain H Pylori Breath Test Today K21.9 - Gastro-esophageal reflux disease without esophagitis C Reactive Protein Today K58.9 - Irritable bowel syndrome, unspecified Vitamin B12 and Folate Today R19.7 - Diarrhea, unspecified Medications: New omeprazole 20 mg PO DAILY 30 caps 2RF K21.9 - Gastro-esophageal reflux disease without esophagitis linaclotide (Linzess) 145 mcg PO DAILY 30 caps 2RF Discontinued linaclotide (Linzess) Discontinued Reason: Doctor's Order 72 mcg PO DAILY 30 caps 0RF Coding Level of Care Code New Pt Level 4 (89014) Diagnoses Slow transit constipation K59.01 Constipation type: slow transit constipation Gastroesophageal reflux disease, unspecified whether esophagitis present K21.9 Esophagitis presence: esophagitis presence not specified Postprandial abdominal bloating R14.0 Postprandial epigastric pain R10.13 Time Spent (min) 50 Comment 35 minutes spent with patient and additional 15 minutes spent reviewing her records
[2025-05-19 11:33] VITALS: BP 118/64; PULSE 94; O2SAT 98; BMI 25.1
--- OUTSIDE RECORDS SUMMARY | 2025-05-19 12:13 | XMS_ITS | Clinical Summary ---
Author Organization [facility] [address] [place] [address] [place] [phone] Phone Care Team Providers Care Quarry Supervisor Name Role Phone Luisa Manriquez MD Primary Care Provider [phone] Allergies Active Allergy Reactions Criticality Noted Date [...] for your loved ones. For example, child development teacher or elderly care for an older adult? [...] LAB MICROBIOLOGY METHOD 01/06/2025 2:12 PM EDT [facility] Brushing/Spatula Cervix uteri structure / Unknown 01/05/2025 9:53 AM EDT 01/06/2025 6:10 AM EDT us [facility] MOLECULAR DIAGNOSTICS OR DERABLES Final Result [facility] [address] [place] [address], from Last 3 Months or Most Recently Relevant to Health Maintenance Insurance [facility] [employer] Care Teams Quarry Supervisor Relationship Specialty Start Date End Date Luisa Manriquez MD [address] [place] [address] PCP - General Internal Medicine 01/02/25
--- OUTSIDE RECORDS SUMMARY | 2025-05-19 12:13 | XMS_ITS | Patient Health Record ---
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
== END 2025-05-19 12:10 | disposition home or self-care (01) ==
LOC: HO.HGI 11:27
PROVIDERS: PCP Internal Medicine; Visit Provider Nurse Practitioner Family
DX: K59.01 Slow transit constipation (principal); K21.9 Gastro-esophageal reflux disease without esophagitis; R14.0 Abdominal distension (gaseous); R10.13 Epigastric pain
CPT/HCPCS: 99204

== ENCOUNTER 2025-05-19 11:26 | Outpatient (REF) | payer OTHER, SELFPAY ==
[2025-05-19 14:38] LABS: Lipase 22 U/L (8-78)
[2025-05-19 14:53] LABS: Folate 7.3 ng/mL (> or = 4.0); Vitamin B12 453 pg/mL (200-900)
[2025-05-23 14:58] LABS: Vitamin D 25-OH, D2 <4 ng/mL; Vitamin D 25-OH, D3 25 ng/mL; Vitamin D 25-OH, Total 25 ng/mL (30-100)
== END 2025-05-19 11:27 | disposition home or self-care (01) ==
LOC: HO.LAB 11:26
PROVIDERS: PCP Internal Medicine; Visit Provider Nurse Practitioner Family
DX: K58.2 Mixed irritable bowel syndrome (principal); K21.9 Gastro-esophageal reflux disease without esophagitis; E55.9 Vitamin D deficiency, unspecified; Z01.84 Encounter for antibody response examination; R14.0 Abdominal distension (gaseous); R10.13 Epigastric pain; R15.9 Full incontinence of feces; Z79.899 Other long term (current) drug therapy; Z79.85 Long-term (current) use of injectable non-insulin antidiabetic drugs
CPT/HCPCS: 36415; 82306; 82607; 82746; 83013; 83690; 86140; 86364; 99202

== ENCOUNTER 2025-05-25 12:30 | Outpatient (AMB) | payer OTHER, SELFPAY ==
--- NOTE | 2025-05-25 12:35 | A.OFFPC_ITS ---
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 Allergies amoxicillin (AMOXICILLIN) Allergy (Unknown, Verified 05/25/25 12:46) Rash Penicillins (PENICILLINS) Allergy (Unknown, Verified 05/25/25 12:46) Rash tramadol Adverse Reaction (Verified 05/25/25 12:46) Vomiting Medication List - Last Reconciled 05/25/25 by Luisa Manriquez MD albuterol sulfate 90 mcg/actuation 1 puff inhalation Q6H PRN fluoxetine mg PO linaclotide (Linzess) 145 mcg PO DAILY lorazepam 1 mg PO DAILY PRN 14 days omeprazole 20 mg PO DAILY Tobacco use date assessed: 10/31/24 Dental Screening Dental Screen Date: 10/31/24 HPI PE HPI Details - 30-year-old female presenting today f or her physical exam - patient states has been having frequen t illnesses, becoming sick easily this past year. She takes zinc and vitamin C to boost immunity but continues to experience frequent infections. - History of vitamin D deficiency due to limited sun exposure from indoor work. Advised to take vitamin D supplements, 2000 units daily. - History of familial hypercholesterolem ia, with her will cholesterol level at 216 mg/dL. Aware of increased cardiovascular risk, due for cholesterol recheck. - Experiences anxiety, managed with fluo xetine and lorazepam as needed which has been. Followed by psychiatrist at [facility] - Occasionally suffers from migraines an d has a history of asthma, uses an inhaler. - History of kidney stones and urinary t ract infections, last episode involved a stone lodged in the ureter. - Underwent breast reduction surgery, wh ich alleviated back pain. - Preventative care includes tetanus baptiste ster due next year. Her last cervical cancer screening pelvic exam was done July 2024 which came back with negative findings. [facility] Medical History (Updated 05/27/25 @ 15:31 by Luisa Manriquez MD) Dyslipidemia Generalized anxiety disorder GERD (gastroesophageal reflux disease) Intermittent palpitations Overweight (BMI 25.0-29.9) Constipation Mixed dyslipidemia Upper back pain, chronic Vitamin D deficiency Mild intermittent asthma IBS (irritable bowel syndrome) Surgical History Hx of breast reduction, elective History of wisdom tooth extraction Family History Father Diabetes mellitus HTN (hypertension) Stroke Back problem Kidney stone Mental health disorder Mother Anxiety Ovarian cyst Mental health disorder Maternal Grandmother Unknown family medical history Maternal Grandfather Unknown family medical history Paternal Grandmother Unknown family medical history Alzheimer's disease Paternal Grandfather Unknown family medical history Brother No problems noted. Brother No problems noted. Brother No problems noted. Sister No problems noted. Sister No problems noted. Sister No problems noted. Sister No problems noted. Maternal Aunt Crohn's disease Social History Household Members: Family Housing: House Alcohol intake: never Patient Tobacco Use Status: Never used Tobacco e-Cigarette/Vaping Use: Never Used service: No Current occupational status: employed Cognitive needs: No Hearing needs: No Vision needs: Yes Questionnaire PHQ-9 Over the last 2 weeks, how often have you been bothered by any of the following problems? 1. Little interest or pleasure in doing things: not at all 2. Feeling down, depressed, or hopeless: not at all 3. Trouble falling or staying asleep, or sleeping too much: not at all 4. Feeling tired or having little energy: not at all 5. Poor appetite or overeating: not at all 6. Feeling bad about yourself - or that you are a failure or have let yourself or your family down: not at all 7. Trouble concentrating on things, such as reading the newspaper or watching television: not at all 8. Moving or speaking so slowly that other people could have noticed. Or the opposite - being so fidgety or restless that you have been moving around a lot more than usual: not at all 9. Thoughts that you would be better off or of hurting yourself in some way: not at all Total score: 0 Depression Screening Interpretation: Negative Depression Screening Done: Yes 64259 - PHQ-9 Billing: Yes Source: Developed by Drs. Cristi Butt, Becka Hillman, Bernabe Ramirez and colleagues, with an educational hiram from [employer]. Thrive Questionnaire Date Thrive assessed: 05/25/25 I am a: Patient What is your living situation today?: I have a steady place to live Within the past 12 months, did the food you bought not last and you didn't have the money to get more?: Never true Within the past 12 months, did you worry whether your food would run out before you got money to buy more?: Never true Do you have trouble paying for medicines?: No Do you have trouble getting transportation to medical appointments?: Yes Do you have trouble paying your heating and electricity bill?: No Do you have trouble taking care of your child, family member or friend?: No Do you have trouble with day-to-day activities such as bathing, preparing meals, shopping, managing finances, etc.?: No Are you currently unemployed and looking for a job?: No Are you interested in more education?: No Please select the resources that you would like help with: None Currently or been in a relationship where the following occur: No concerns reported THRIVE Score: 1 AUDIT C Alcohol Use Questionnaire (AUDIT-C) 1. How often do you have a drink containing alcohol?: Never 3. How often do you have six or more drinks on one occasion?: Never Total Score: 0 Score Reviewed/Action Taken: Yes RODOLFO-7 AMB Questionnaire RODOLFO-7 Date RODOLFO - 7 assessed: 05/25/25 Feeling nervous, anxious, or on edge: 1 = Several days Not being able to stop or control worryin = Not at all Worrying too much about different things: 0 = Not at all Trouble relaxin = Not at all Being so restless that it is hard to sit still: 0 = Not at all Becoming easily annoyed or irritable: 0 = Not at all Feeling afraid as if something awful might happen: 0 = Not at all Total RODOLFO-7 score (0-4 normal; 5-9 mild; 10-14 moderate; 15-21 severe): 1 Source: Developed by Drs. Cristi Butt, Bernabe Palma and colleagues, with an educational hiram from [employer]. RODOLFO-7 Assessment Billing RODOLFO-7 Assessment Tool: RODOLFO-7 Assessment 49952 ACT Questionnaire In the past 4 weeks, how much of the time did your asthma keep you from getting as much done at work, school or at home?: None of the time During the past 4 weeks, how often have you had shortness of breath?: 1-2 times a week During the past 4 weeks, how often did your asthma symptoms wake you up at night or earlier than usual in the morning?: Not at all During the past 4 weeks, how often have you had to use your rescue inhaler or nebulizer medication?: Once a week or less How would you rate your asthma control during the past 4 weeks?: Well controlled ACT Interpretation: Negative Score: 22 Review of Systems Const Reports no additional complaints Eyes Denies change in vision ENT Denies dizziness and Denies nasal congestion Card Denies chest pain, Denies lightheadedness, Denies palpitations and Denies dyspnea Resp Denies chest congestion, Denies cough and Denies dyspnea GI Denies abdominal pain, Denies melena and Denies heartburn Reports no additional complaints Musc Reports no additional complaints Skin/Breast Denies breast pain, Denies breast mass and Denies rash Neuro Denies dizziness Psych Reports no additional complaints Endo Denies polydipsia, Denies polyuria and Denies palpitations Omar/Lymph Reports no additional complaints Aller/Immun Denies seasonal rhinorrhea Physical exam (Primary Care) Vital Signs: Last Vital Signs Temp 98.0 F 05/25/25 12:36 Pulse 84 05/25/25 12:36 Resp 16 05/25/25 12:36 BP 112/76 05/25/25 12:36 Pulse Ox 98 05/25/25 12:36 Oxygen Delivery Method Room Air 05/25/25 12:36 BMI result Body Mass Index 24.8 Tobacco/Smoking Status: Tobacco use Status Tobacco use date assessed 10/31/24 05/25/25 12:36 Patient Tobacco Use Status Never used Tobacco 05/25/25 12:36 e-Cigarette/Vaping Use Never Used 05/25/25 12:36 PHQ-9: PHQ-9 Score PHQ-9: Total score 0 05/25/25 13:03 Depression Screening Interpretation: Negative Thrive Assessment: Date of Thrive Assessment Date Thrive assessed 05/25/25 05/25/25 12:41 Currently or been in a relationship where the following occur: No concerns reported Const Other: Alert oriented x3, no acute cardiorespiratory distress noted ambulatory normal gait Orientation/consciousness: patient oriented x3 HENMT Ears: external ears normal, TM's normal bilaterally and EAC's normal General nose exam: Normal external nose present, Normal nares present and No nasal discharge present Eyes General: appearance normal, both eyes and all related structures Neck Neck: Yes normal visual inspection, Yes full ROM, Yes no lymphadenopathy, Yes supple and Yes prominent dorsocervical fat pad Chest Other: no mass palpated no nipple discharge Resp Auscultation: clear to auscultation bilaterally Cardio Other: S1-S2 present regular rate and GI Palpation (GI): Soft to palpation, nontender, no guarding and no masses Auscultation: normal bowel sounds General: Yes no CVA tenderness Back/Spine/Pelvis Back: no CVA tenderness Cervical Spine: cervical ROM normal Skin General skin exam: no rashes or lesions noted Neuro General: patient oriented x3, gait normal, moves all extremities, no focal motor deficits and CN's II-XI intact bilaterally Extrem General: Yes full ROM and Yes normal gait Psych Appearance: grossly normal and well kempt Mental Status: mental status grossly normal Speech and movement: Normal speech and movement present Affect: normal affect Results Reviewed Results Reviewed: Laboratory Tests 05/19/25 12:32 Vitamin B12 453 25-OH Vitamin D Total 25 L Coding Level of Care Code Est Pt Prev Care 18-39y(92225) Diagnoses Annual visit for general adult medical examination with abnormal findings Z. Mixed dyslipidemia E78.2 Mild intermittent asthma without complication J45.20 Asthma complication type: uncomplicated Slow transit constipation K59.01 Constipation type: slow transit constipation Additional Codes RODOLFO-7 Assessment Billing - RODOLFO-7 Assessment Tool: RODOLFO-7 Assessment 69807 ([id number]) PHQ-9 - 38811 - PHQ-9 Billing: Yes ([id number]) Asthma Control Questionnaire - ACT Interpretation: Negative ([id number]) Assessment & Plan Assessment & Plan (1) Annual visit for general adult medical examination with abnormal findings: Code(s): Z00.01 - Encounter for general adult medical examination with abnormal findings (2) Mixed dyslipidemia: Code(s): E78.2 - Mixed hyperlipidemia Category: Medical (3) Mild intermittent asthma: Code(s): J45.20 - Mild intermittent asthma, uncomplicated Category: Medical Qualifiers: Asthma complication type: uncomplicated Qualified Code(s): J45.20 - Mild intermittent asthma, uncomplicated (4) Constipation: Code(s): K59.00 - Constipation, unspecified Category: Medical Qualifiers: Constipation type: slow transit constipation Qualified Code(s): K59.01 - Slow transit constipation Plan -will continue with vitamin D supplementation at 2000 units daily to address the deficiency. - recheck of cholesterol levels is planned due to the history of familial hypercholesterolemia, with previous levels recorded at 216 mg/dL. The patient is advised to maintain a healthy lifestyle, including regular exercise and a balanced diet, to manage cholesterol levels and reduce cardiovascular risk. -Anxiety disorder controlled with current medication, currently followed by psychiatrist. -Asthma stable and controlled on present treatment -currently on Linzess for constipation, followed by GI clinic - Preventative care includes scheduling a tetanus booster for next year. - complete blood count, , fasting lipid panel, liver enzymes, and fasting glucose ordered today. Vitamin-D and B12 levels are within normal limits. Up-to-date with her cervical cancer screening - Patient was informed and verbally consented to the use of an ambient scribe for clinic note documentation during this visit. Orders: Orders Lipid Panel 05/25/25 E78.2 - Mixed hyperlipidemia, J45.20 - Mild intermittent asthma, uncomplicated, K59.01 - Slow transit constipation, Z00.01 - Encounter for general adult medical examination with abnormal findings, Z71.89 - Other specified counseling Alanine Aminotransferase 05/25/25 E78.2 - Mixed hyperlipidemia, J45.20 - Mild intermittent asthma, uncomplicated, K59.01 - Slow transit constipation, Z00.01 - Encounter for general adult medical examination with abnormal findings, Z71.89 - Other specified counseling Glucose Fasting 05/25/25 E78.2 - Mixed hyperlipidemia, J45.20 - Mild intermittent asthma, uncomplicated, K59.01 - Slow transit constipation, Z00.01 - Encounter for general adult medical examination with abnormal findings, Z71.89 - Other specified counseling Complete Blood Count Auto Diff 05/25/25 E78.2 - Mixed hyperlipidemia, J45.20 - Mild intermittent asthma, uncomplicated, K59.01 - Slow transit constipation, Z00.01 - Encounter for general adult medical examination with abnormal findings, Z71.89 - Other specified counseling Aspartate Amino Transferase 08/11/25 E78.2 - Mixed hyperlipidemia, J45.20 - Mild intermittent asthma, uncomplicated, K59.01 - Slow transit constipation, Z00.01 - Encounter for general adult medical examination with abnormal findings, Z71.89 - Other specified counseling
[2025-05-25 12:36] VITALS: BP 112/76; PULSE 84; RESP 16; TEMP 36.7; O2SAT 98; BMI 24.8
--- OUTSIDE RECORDS SUMMARY | 2025-05-25 12:36 | XMS_ITS | Clinical Summary ---
Author Organization [facility] [address] [place] [address] [place] [id number] Phone Care Team Providers Care Hansard Reporter Name Role Phone Luisa Manriquez MD Primary Care Provider [phone] Allergies Active Allergy Reactions Criticality Noted Date [...] for your loved ones. For example, child care center administrator or elderly care for an older adult? [...] LAB MICROBIOLOGY METHOD 01/06/2025 2:12 PM EDT [facility] Brushing/Spatula Cervix uteri structure / Unknown 01/05/2025 9:53 AM EDT 01/06/2025 6:10 AM EDT [facility] MOLECULAR DIAGNOSTICS OR DERABLES Final Result [facility] [address] [place] [address], from Last 3 Months or Most Recently Relevant to Health Maintenance Insurance [facility] [employer] Care Teams Hansard Reporter Relationship Specialty Start Date End Date Luisa Manriquez MD [address] [place] [address] PCP - General Internal Medicine 01/02/25
--- OUTSIDE RECORDS SUMMARY | 2025-05-25 12:37 | XMS_ITS | Patient Health Record ---
Author Organization [facility] Address [address] [place] [id number] Care Team Providers Care Headwaitress Name Role Phone MOMO PIZANO Primary Care Provider Cristi Ellsworth [phone] Allergies Allergen (clinical drug ingredient) Drug/Non Drug [...] Problem Status W/U Status Risk Notes Problem [id number] Abdominal pain, epigastric (R10.13) Active confirmed Problem [id number] Positive autoantibody screening for celiac disease (R76.8) Active confirmed Problem 70070042 Irritable bowel syndrome, unspecified type (K58.9) Active confirmed Problem 57244344 Abdominal pain, lower (R10.30) Active confirmed Plan Of Treatment Future Test Test Name Order Date UPPER GI ENDOSCOPY 10/02/2017 Insurance Providers Payer Name Payer Address Payer Phone Subscriber Number Group Number Insured Name Patient Relationship to Insured Coverage Start Date Coverage End Date [facility] [address] [place] [address] [phone] [id number] [id number] Self - patient is the insured Medical (General) History Medical History History ICD Code Denies ND,DM,CVA,Lung disease,renal dise ase Asthma--inhaler prn Colonoscopy with Dr. Talbert 2013--report describes that it was a normal exam--told of IBS Kidney stone BENIGN PAROXYSMAL POSITIONAL VERTIGO/BPP V 2018 EGD in 10/2017--minimal HH, neg. biopsies for celiac disease and H.pylori Neg. abodominal U/S in 10/2017
== END 2025-05-25 13:22 | disposition home or self-care (01) ==
LOC: HO.HMCC 12:31
PROVIDERS: PCP Internal Medicine; Visit Provider Internal Medicine
DX: Z00.01 Encounter for general adult medical examination with abnormal findings (principal); E78.2 Mixed hyperlipidemia; J45.20 Mild intermittent asthma, uncomplicated; K59.01 Slow transit constipation

== ENCOUNTER 2025-05-25 12:30 | Outpatient (REF) | payer OTHER, SELFPAY ==
[2025-05-25 16:11] LABS: MANUAL DIFF FLAG NO
[2025-05-25 16:16] LABS: Hematocrit 42.1 % (37.0-47.0); Hemoglobin 14.1 g/dl (12.0-16.0); Imm Gran Abs Auto 0.03 X10*3/uL (0.00-0.03); Imm Gran Pct Auto 0.3 % (0.0-0.4); Lymphocytes Absolute Auto 2.7 X10*3/uL (1.2-4.9); Mean Corpuscular HGB Conc 33.5 g/dl (31.0-35.0); Mean Corpuscular Hemoglobin 30.3 pg (27.0-33.0); Mean Corpuscular Volume 90.5 fL (80.0-98.0); NRBC Abs Auto 0.000 X10*3/uL (0.0-0.012); NRBC Pct Auto 0.0 /100WBC (0.0-0.2); Platelet Count 369 X10*3/uL (160-400); Red Blood Count 4.65 X10*6/uL (4.20-5.50); White Blood Count 9.2 X10*3/uL (4.8-10.8)
[2025-05-25 16:36] LABS: Alanine Aminotransferase 39 U/L (0-31); Aspartate Amino Transferase 27 U/L (5-31); Cholesterol 280 mg/dL (<200); HDL Cholesterol 41 mg/dL (>40); Triglycerides 143 mg/dL (<150)
== END 2025-05-25 12:31 | disposition home or self-care (01) ==
LOC: HO.HMGCLDS 12:30
PROVIDERS: PCP Internal Medicine; Visit Provider Internal Medicine
DX: Z00.01 Encounter for general adult medical examination with abnormal findings (principal); E78.2 Mixed hyperlipidemia; J45.20 Mild intermittent asthma, uncomplicated; K59.01 Slow transit constipation; Z71.89 Other specified counseling; Z13.31 Encounter for screening for depression; Z13.39 Encounter for screening examination for other mental health and behavioral disorders
CPT/HCPCS: 36415; 80061; 82947; 84450; 84460; 85025; 96127; 96160; 99395

== ENCOUNTER 2025-06-05 18:12 | Emergency (ER) | payer OTHER, SELFPAY ==
--- NOTE | ~2025-06-05 | CT_ITS ---
CLINICAL HISTORY: LLQ pain, divertic? CT abdomen and pelvis with contrast Comparison: CT/SR - CT ABDOMEN PELVIS W IV CON - 03/07/25 12:56 EDT Findings: The lung bases are clear. The gallbladder and solid organs are within normal limits. No renal stones. No bowel obstruction, pneumoperitoneum, or pneumatosis. Urinary bladder underdistended, limiting evaluation. Uterus unremarkable. Left adnexa unremarkable, right adnexa containing likely ruptured follicle. Trace free pelvic fluid, likely physiologic in this premenopausal female. Normal appendix. No acute fracture. IMPRESSION: No acute findings. This document has been electronically signed by: Lucas Cee MD on 06/05/2025 22:33:07
[2025-06-05 18:58] VITALS: BP 150/62; PULSE 104; RESP 18; TEMP 36.5; O2SAT 97; BMI 23.7
--- NOTE | 2025-06-05 19:00 | ED_ITS ---
HPI - General Adult General Chief complaint: Nausea/Vomiting/Diarrhea Stated complaint: vomiting Time Seen by Provider: 06/05/25 20:33 Source: patient Limitations: no limitations History of Present Illness ED Provider: Shanda Sung PA-C HPI narrative: 30-year-old female with a history of chronic constipation presents with the abdominal pain x3 days. Pain across lower abdomen with the associated bright red blood per rectum when she has a bowel movement. Patient states she does have hemorrhoids, and bleeds often. Associated nausea vomiting, abdominal distention at times and excessive flatulence. Denies fever. Related Data Home Medications ?Medication ?Instructions ?Recorded ?Confirmed fluoxetine 20 mg capsule mg PO 05/07/25 05/25/25 Previous Rx's ?Medication ?Instructions ?Recorded lorazepam 1 mg tablet 1 mg PO DAILY PRN anxiety 14 days 12/12/22 #14 tabs albuterol sulfate 90 mcg/actuation 1 puff inhalation Q 6H PRN Wheezing 04/28/24 aerosol inhaler and bronchospasm #8.5 grams linaclotide 145 mcg capsule 145 mcg PO DAILY #30 caps 05/19/25 (Linzess) omeprazole 20 mg capsule,delayed 20 mg PO DAILY #30 ca ps 05/19/25 release rosuvastatin 5 mg tablet 5 mg PO DAILY #90 tabs 05/27 ondansetron 4 mg disintegrating 4 mg PO Q8H PRN nausea and 06/05/25 tablet vomiting #10 tabs Allergies Allergy/AdvReac Type Severity Reaction Status Date / Time amoxicillin (AMOXICILLIN) Allergy Unknown Rash Verified 06/05/25 19:02 Penicillins (PENICILLINS) Allergy Unknown Rash Verified 06/05/25 19:02 ketorolac (From Toradol) Allergy Nausea and Verified 06/05/25 21:20 Vomiting tramadol AdvReac Vomiting Verified 06/05/25 19:02 Review of Systems 2 Review of Systems: Yes all other systems are reviewed and are negative Constitutional: Constitutional: Denies fatigue and Denies fever(s) Cardiovascular: Cardiovascular: Denies chest pain and Denies dyspnea Respiratory: Respiratory: Denies dyspnea Gastrointestinal: Gastrointestinal: Reports abdominal pain, Reports bloating, Reports hematochezia, Reports constipation, Reports nausea and Reports vomiting Endocrine: Endocrine: Denies fatigue PMFSH Past Medical History Attestation statement: The following information was validated with the patient. Medical History (Updated 06/05/25 @ 23:29 by VU Mcmillan) Dyslipidemia Generalized anxiety disorder GERD (gastroesophageal reflux disease) Intermittent palpitations Overweight (BMI 25.0-29.9) Constipation Mixed dyslipidemia Upper back pain, chronic Vitamin D deficiency Mild intermittent asthma IBS (irritable bowel syndrome) Surgical History Hx of breast reduction, elective History of wisdom tooth extraction Family History Family History Father Diabetes mellitus HTN (hypertension) Stroke Back problem Kidney stone Mental health disorder Mother Anxiety Ovarian cyst Mental health disorder Maternal Grandmother Unknown family medical history Maternal Grandfather Unknown family medical history Paternal Grandmother Unknown family medical history Alzheimer's disease Paternal Grandfather Unknown family medical history Brother No problems noted. Brother No problems noted. Brother No problems noted. Sister No problems noted. Sister No problems noted. Sister No problems noted. Sister No problems noted. Maternal Aunt Crohn's disease Social History Social History Household Members: Family Housing: House Alcohol intake: never Patient Tobacco Use Status: Never used Tobacco Smoked in Last 30 Days: No e-Cigarette/Vaping Use: Never Used Use of substances other than those prescribed or required for medical reasons: No Advance Directives: No Advance Directives Information Provided: Yes service: No Current occupational status: employed Cognitive needs: No Hearing needs: No Vision needs: Yes Physical Exam ED Vital Signs: Vital Signs - 24 hr 06/05/25 18:58 Temperature 97.7 F Pulse Rate 104 H Respiratory Rate 18 Blood Pressure 150/62 H Pulse Oximetry 97 Oxygen Delivery Method Room Air BMI result Body Mass Index 23.7 Const Other: Alert Orientation/consciousness: patient oriented x3 Resp Effort & Inspection: normal respiratory effort Cardio Other: Normal peripheral perfusion GI Other: Abdomen is soft, mild to moderate tenderness over mid to left lower abdomen without guarding no objective distention Skin Other: Warm dry no rash Neuro General: patient oriented x3, gait normal, no focal motor deficits and CN's II- XI intact bilaterally Psych Other: Cooperative Course Course Course Narrative: RME, this is a rapid medical exam performed by Ricky Benavides please refer to primary provider for complete H&P- 30 year old female presents for evaluation of abdominal pain, nausea, and vomiting. Symptoms started a few weeks ago. She has seen GI in the past for similar symptoms. Plan for labs and a UA Medications Administered Discontinued Medications Generic Name Dose Route Start Last Admin Trade Name Katie PRN Reason Stop Dose Admin Sodium Chloride 1,000 mls @ 999 mls/hr 06/05/25 21:00 06/05/25 23:20 Ns IV 06/05/25 22:00 Infused .Q1H1M GERA Infusion Iohexol 85 ml 06/05/25 21:18 06/05/25 21:19 Iohexol 350 Mg/Ml 100 Ml Infus..Btl IV 06/05/25 21:19 85 ml ONCE ONE Administration Morphine Sulfate 4 mg 06/05/25 20:52 06/05/25 21:39 Morphine Sulfate 4 Mg/Ml Cartridge IVPUSH 06/05/25 20:53 Not Given ONCE ONE Protocol Ondansetron HCl 4 mg 06/05/25 20:52 06/05/25 21:17 Ondansetron Hcl 4 Mg/2 Ml Vial IVPUSH 06/05/25 20:53 4 mg ONCE ONE Administration Medical Decision Making Medical Decision Making MDM Narrative: 30-year-old female with a history of chronic constipation presents with the abdominal pain x3 days. Pain across lower abdomen with the associated bright red blood per rectum when she has a bowel movement. Patient states she does have hemorrhoids, and bleeds often. Associated nausea vomiting, abdominal distention at times and excessive flatulence. Denies fever. Problem: Chronic constipation History: Per patient I have considered the following differential diagnoses: Constipation, hemorrhoids, internal hemorrhoids, diverticulosis, diverticulitis, bowel obstruction Plan: Patient here with additional rectal bleeding, now with new onset nausea vomiting. Her meat cutting block repairer advised she should be seen in the emergency department. We will be obtaining a CT scan, perhaps she is developing diverticulitis. Giving morphine, Zofran and IV fluid. Thought about bowel obstruction, however she has no obstructive symptoms. I have independently reviewed the following tests: Labs: Slight leukocytosis, no left shift, not anemic, no electrolyte abnormality, not , urine not infected CT abd : Findings: The lung bases are clear. The gallbladder and solid organs are within normal limits. No renal stones. No bowel obstruction, pneumoperitoneum, or pneumatosis. Urinary bladder underdistended, limiting evaluation. Uterus unremarkable. Left adnexa unremarkable, right adnexa containing likely ruptured follicle. Trace free pelvic fluid, likely physiologic in this premenopausal female. Normal appendix. No acute fracture. IMPRESSION: No acute findings. Lab Data 06/05/25 19:24 06/05/25 19:24 Labs: Lab Results 06/05/25 Range/Units 19:24 WBC 11.9 H (4.8-10.8) X10*3/uL RBC 4.75 (4.20-5.50) X10*6/uL Hgb 14.6 (12.0-16.0) g/dl Hct 42.0 (37.0-47.0) % MCV 88.4 (80.0-98.0) fL MCH 30.7 (27.0-33.0) pg MCHC 34.8 (31.0-35.0) g/dl RDW 12.1 (11.0-16.0) % Plt Count 366 (160-400) X10*3/uL MPV 9.6 (9.4-12.3) fL Immature Gran % (Auto) 0.6 H (0.0-0.4) % Neut % (Auto) 60.7 (45-73) % Lymph % (Auto) 28.5 (20-40) % Crockett % (Auto) 8.6 (2-11) % Eos % (Auto) 0.8 (0-4) % Baso % (Auto) 0.8 (0-2) % Lymph # (Auto) 3.4 (1.2-4.9) X10*3/uL Crockett # (Auto) 1.0 (0.1-1.2) X10*3/uL Eos # (Auto) 0.1 (0.0-0.4) X10*3/uL Baso # (Auto) 0.1 (0.0-0.2) X10*3/uL Abs Immat Gran (auto) 0.07 H (0.00-0.03) X10*3/uL Absolute Neuts (auto) 7.2 (2.0-8.3) x10*3/uL Absolute Nucleated RBC 0.000 (0.0-0.012) X10*3/uL Nucleated RBC % (auto) 0.0 (0.0-0.2) /100WBC Sodium 138 (135-145) mmol/L Potassium 3.9 (3.3-5.1) mmol/L Chloride 105 (96-108) mmol/L Carbon Dioxide 22 (22-29) mmol/L Anion Gap 15 (12-20) BUN 14 (9-16) mg/dL Creatinine 1.00 (0.5-1.4) mg/dL Estim Creat Clear Calc 73.3 Estimated GFR > 60 Random Glucose 78 (60-115) mg/dL Calcium 9.6 (8.4-10.2) mg/dL Total Bilirubin 0.7 (0.0-1.0) mg/dL AST 20 (5-31) U/L ALT 22 (0-31) U/L Alkaline Phosphatase 71 (39-117) U/L Total Protein 8.5 H (6.5-8.0) g/dL Albumin 4.9 (3.5-5.0) g/dL Lipase 29 (8-78) U/L Beta HCG, Quant < 2 mIU/mL Urine Color Yellow Urine Appearance Clear Urine pH 6.0 (5.0-9.0) Ur Specific Wall <= 1.005 (1.005-1.025) Urine Protein Negative (Neg-Trace) mg/dL Urine Glucose (UA) Negative (Negative) mg/dL Urine Ketones Negative (Negative) mg/dL Urine Blood Negative (Negative) Urine Nitrite Negative (Negative) Ur Leukocyte Esterase Trace H (Negative) Urine RBC 0-2 (0-2) /HPF Urine WBC 0-5 (0-5) /HPF Ur Squamous Epith Cells 0-2 (0-2) /HPF Urine Bacteria None Seen (None Seen) Hyaline Casts 0-2 (0-2) /LPF Discharge Plan Discharge Clinical Impression: Constipation, Ovarian cyst Patient Disposition: Home, Self-Care Instructions: Ovarian Cyst (ED), Constipation (ED) Additional Instructions: You had no lab abnormalities. The CT scan revealed no acute infection. You are constipated, you were also found to have an ovarian cyst that likely ruptured. See home care instructions. You can use [id number] ibuprofen 600 mg taken every 6 hours with food for pelvic pain. In regard to the constipation, you could implement a different bowel regimen. D o not use the described bowel regimen concurrently with the Linzess you are prescribed. Use [id number]-ffi-fujuabt Colace twice a day. Purchase MiraLax, use it 4 to 5 times a day until you begin having multiple large volume bowel movements, or take it every hour, until you begin having multiple large volume bowel movements. Follow up with your tool salvage worker in regard to the ovarian cyst, you will likely require a transvaginal ultrasound scheduled as an outpatient. Continue to follow up with your meat cutting block repairer. Prescriptions: New ondansetron 4 mg tablet,disintegrating 4 mg PO Q8H PRN (Reason: nausea and vomiting) Qty: 10 0RF No Action lorazepam 1 mg tablet 1 mg PO DAILY PRN (Reason: anxiety) 14 Days Qty: 14 0RF rosuvastatin 5 mg tablet 5 mg PO DAILY Qty: 90 1RF albuterol sulfate 90 mcg/actuation HFA aerosol inhaler 1 puff inhalation Q6H PRN (Reason: Wheezing and bronchospasm) Qty: 8.5 3RF omeprazole 20 mg capsule,delayed release(DR/EC) 20 mg PO DAILY Qty: 30 2RF Linzess 145 mcg capsule 145 mcg PO DAILY Qty: 30 2RF fluoxetine 20 mg capsule PO Print Language: Czech
[2025-06-05 19:39] LABS: MANUAL DIFF FLAG NO
[2025-06-05 19:47] LABS: Appearance Urine Clear; Glucose Urine UA Negative (Negative); Hematocrit 42.0 % (37.0-47.0); Hemoglobin 14.6 g/dl (12.0-16.0); Imm Gran Abs Auto 0.07 X10*3/uL (0.00-0.03); Imm Gran Pct Auto 0.6 % (0.0-0.4); Lymphocytes Absolute Auto 3.4 X10*3/uL (1.2-4.9); Mean Corpuscular HGB Conc 34.8 g/dl (31.0-35.0); Mean Corpuscular Hemoglobin 30.7 pg (27.0-33.0); Mean Corpuscular Volume 88.4 fL (80.0-98.0); NRBC Abs Auto 0.000 X10*3/uL (0.0-0.012); NRBC Pct Auto 0.0 /100WBC (0.0-0.2); PH 6.0 (5.0-9.0); Platelet Count 366 X10*3/uL (160-400); Red Blood Count 4.75 X10*6/uL (4.20-5.50); Specific Gravity - Urine <= 1.005 (1.005-1.025); UMIC TRIGGER UACC YES; White Blood Count 11.9 X10*3/uL (4.8-10.8)
[2025-06-05 20:09] LABS: Alanine Aminotransferase 22 U/L (0-31); Albumin Level 4.9 g/dL (3.5-5.0); Alkaline Phosphatase 71 U/L (39-117); Anion Gap 15 (12-20); Aspartate Amino Transferase 20 U/L (5-31); Blood Urea Nitrogen 14 mg/dL (9-16); Calcium 9.6 mg/dL (8.4-10.2); Carbon Dioxide 22 mmol/L (22-29); Chloride 105 mmol/L (96-108); Creatinine Clr Calc Pharmacy 73.3; Estimated Glomerular Filt Rate > 60; Lipase 29 U/L (8-78); Potassium 3.9 mmol/L (3.3-5.1); Sodium 138 mmol/L (135-145); Total Protein 8.5 g/dL (6.5-8.0)
[2025-06-05] MEDS: iohexoL 350 MG/ML 100 ML INFUS..BTL 85 ML IV (21:19)
[2025-06-05 23:34] VITALS: BP 107/62; PULSE 74; TEMP 36.8; O2SAT 100
[2025-06-05 23:38] VITALS: BP 107/62; PULSE 74; RESP 18; TEMP 36.8; O2SAT 100
== END 2025-06-05 23:39 | disposition home or self-care (01) ==
PROVIDERS: Physician Assistant; Emergency Provider Emergency Medicine; PCP Internal Medicine
DX: K59.00 Constipation, unspecified (principal); N83.209 Unspecified ovarian cyst, unspecified side; R19.7 Diarrhea, unspecified; Z87.19 Personal history of other diseases of the digestive system
CPT/HCPCS: 36415; 74177; 80053; 81001; 83690; 84702; 85025; 96361; 96374; 99284; J2405; Q9967

== ENCOUNTER → 2025-06-05 20:51 | Outpatient (BNV) | payer OTHER, SELFPAY | PROVIDERS: Emergency Provider Emergency Medicine; PCP Internal Medicine; Visit Provider Student in an Organized Health Care Education/Training Program | DX: R10.32 Left lower quadrant pain (principal) | CPT/HCPCS: 74177 ==

== ENCOUNTER 2025-06-10 15:35 | Outpatient (AMB) | payer OTHER, SELFPAY ==
[2025-06-10 15:42] VITALS: BP 112/70; PULSE 82; O2SAT 99; BMI 23.6
--- NOTE | 2025-06-10 15:42 | A.OFFVIS_ITS ---
Vital Signs 06/10/25 15:42 Height 5 ft 5 in Weight 142 lb BMI 23.6 BP 112/70 Blood Pressure Location Rt brachial Position Sitting Pulse 82 Pulse Source Pulse Oximeter Pulse Oximetry (%) 99 Oxygen Delivery Method Room Air Intake Visit Reasons: 30 m. ED FUV. Severe/Chronic N+V. Intake Note: Est pt for mgmt of melena/hematochezia, pt requested visit s/p ED visit. CC; C.O. N+V as well as chronic constipation persistence + exacerbation. Pt states that, despite taking the linzess as instructed, she is still having ~ 4 days between BMs. Pt had CT via ED which showed copious amounts of stool in the colon. Real Estate Professor Required: No Accompanied by: Self / Same As Patient Allergies amoxicillin (AMOXICILLIN) Allergy (Unknown, Verified 06/22/25 15:57) Rash Penicillins (PENICILLINS) Allergy (Unknown, Verified 06/22/25 15:57) Rash ketorolac (From Toradol) Allergy (Verified 06/22/25 15:57) Nausea and Vomiting tramadol Adverse Reaction (Verified 06/22/25 15:57) Vomiting HPI HPI 30 m. ED FUV. Severe/Chronic N+V.: Details: LAST VISIT Constipation GERD (gastroesophageal reflux disease) Postprandial abdominal bloating Postprandial epigastric pain Plan Patient will avoid dietary triggers and late night snacking. Staying upright for minimum 3 hours after meals discussed with patient. Will check for H pylori. If positive will treat empirically. Patient will start taking omeprazole in the morning. Patient reports abdominal pain, cramping and bloating postprandially. Also constipation. Will increase Linzess to 145 mcg daily. Check fecal calprotectin, have family history of Crohn's disease. Will check transglutaminase, lipase, CRP, vitamin-D, vitamin B12 and folate. Patient will return in 2 months, sooner on as needed basis. She is agreeable to this plan and verbalizes understanding of instructions. She was given the opportunity to ask questions and all questions answered. ? Thank you for allowing me to participate in her care Orders Calprotectin, Fecal Today R15.9 Transglutaminase IgA Today R10.9 Vitamin D 25-OH (D2 and D3) Today E55.9 Lipase Today R10.9 H Pylori Breath Test Today K21.9 C Reactive Protein Today K58.9 Vitamin B12 and Folate Today R19.7 New omeprazole 20 mg PO DAILY 30 caps 2RF K21.9 linaclotide (Linzess) 145 mcg PO DAILY 30 caps 2RF Discontinued linaclotide (Linzess) Discontinued Reason: Doctor's Order 72 mcg PO DAILY 30 caps 0RF TODAY'S VISIT Patient is here today for requested visit. Patient was seen in the ER few days ago for severe abdominal pain, nausea and vomiting. Patient had CT scan that showed copious amount of stool throughout her colon. Currently she is on Linzess 145 mcg and reports that she continues to be constipated. Patient reports that she is drinking plenty fluids. She eats fruits and vegetables. Patient reports that she is taking omeprazole daily and her symptoms of acid reflux are suppressed for the most part. Patient reports occasional at the gastric pain and dyspepsia specially few days ago when she went to ED. Patient denies eating anything different. Fecal calprotectin not done yet. Patient was encouraged to get it done. Mildly elevated CRP [facility] Medical History (Updated 06/22/25 @ 16:41 by Zeina Weiss NP) Pelvic pain Dyslipidemia Generalized anxiety disorder GERD (gastroesophageal reflux disease) Intermittent palpitations Overweight (BMI 25.0-29.9) Constipation Mixed dyslipidemia Upper back pain, chronic Vitamin D deficiency Mild intermittent asthma IBS (irritable bowel syndrome) Surgical History Hx of breast reduction, elective History of wisdom tooth extraction Family History Father Diabetes mellitus HTN (hypertension) Stroke Back problem Kidney stone Mental health disorder Mother Anxiety Ovarian cyst Mental health disorder Maternal Grandmother Unknown family medical history Maternal Grandfather Unknown family medical history Paternal Grandmother Unknown family medical history Alzheimer's disease Paternal Grandfather Unknown family medical history Brother No problems noted. Brother No problems noted. Brother No problems noted. Sister No problems noted. Sister No problems noted. Sister No problems noted. Sister No problems noted. Maternal Aunt Crohn's disease Social History Household Members: Family Housing: House Alcohol intake: never Patient Tobacco Use Status: Never used Tobacco e-Cigarette/Vaping Use: Never Used service: No Current occupational status: employed Cognitive needs: No Hearing needs: No Vision needs: Yes Review of Systems Const Denies weight gain and Denies weight loss ENT Reports no additional complaints, Denies dysphagia and Denies odynophagia Card Reports no additional complaints Resp Reports no additional complaints GI Reports abdominal pain (Epigastric), Denies belching, Denies melena, Reports bloating, Denies change in bowel habits, Reports constipation, Denies dysphagia, Denies excessive flatus, Denies dyspepsia, Reports heartburn, Denies diarrhea, Denies loose stools, Denies nausea, Denies odynophagia and Denies vomiting Reports no additional complaints Musc Reports no additional complaints Neuro Reports no additional complaints Psych Reports no additional complaints Endo Reports no additional complaints Physical Exam Vital Signs: Last Vital Signs Pulse 82 06/10/25 15:42 BP 112/70 06/10/25 15:42 Pulse Ox 99 06/10/25 15:42 Oxygen Delivery Method Room Air 06/10/25 15:42 BMI result Body Mass Index 23.6 Const General: healthy appearing, no acute distress and well developed Nutritional Appearance: well nourished Orientation/consciousness: patient oriented x3 Resp Effort & Inspection: normal respiratory effort, able to speak in complete sentences, no tracheal deviation and symmetric chest movement Auscultation: clear to auscultation bilaterally Cardio Rate: regular rate GI Inspection: Yes normal to inspection and No distended Palpation (GI): Soft to palpation, not firm, nontender and No hepatosplenomegaly present Auscultation: normal bowel sounds General: Yes no CVA tenderness Back/Spine/Pelvis Back: no CVA tenderness Skin General skin exam: elasticity normal, turgor normal and dry skin Neuro General: patient oriented x3 Psych Appearance: grossly normal Mental Status: mental status grossly normal Results Reviewed Results Reviewed: Laboratory Tests 05/19/25 05/19/25 05/25/25 12:10 12:32 13:05 AST 27 ALT 39 H C-Reactive Protein 1.49 H Lipase 22 Vitamin B12 453 25-OH Vitamin D Total 25 L Folate 7.3 Tiss Transglutamin IgA <1.0 H. pylori Breath Test Negative Assessment & Plan Assessment & Plan (1) GERD (gastroesophageal reflux disease): Code(s): K21.9 - Gastro-esophageal reflux disease without esophagitis Category: Medical Qualifiers: Esophagitis presence: esophagitis presence not specified Qualified Code(s): K21.9 - Gastro-esophageal reflux disease without esophagitis (2) Constipation: Code(s): K59.00 - Constipation, unspecified Category: Medical Qualifiers: Constipation type: slow transit constipation Qualified Code(s): K59.01 - Slow transit constipation (3) Postprandial epigastric pain: Code(s): R10.13 - Epigastric pain (4) Abdominal pain: Code(s): R10.9 - Unspecified abdominal pain Qualifiers: Abdominal location: generalized Qualified Code(s): R10.84 - Generalized abdominal pain (5) Postprandial abdominal bloating: Code(s): R14.0 - Abdominal distension (gaseous) Plan Patient will start Linzess 290 daily. She can take Dulcolax as needed in the evening if no bowel movements in 1-2 days. Increase fluid intake and activity for better bowel motility. Patient will continue taking omeprazole daily. Avoid dietary triggers and late night snacking. Staying upright foraminal 3 hours after meals discussed with patient. Patient was encouraged to get a fecal calprotectin done. Patient will return in 6-8 weeks to re-evaluate. She will call our office if she will have ongoing GI concerning symptoms. She is agreeable to this plan and verbalizes understanding of instructions. She was given the opportunity to ask questions and all questions answered. Thank you for allowing me to participate in her care Medications: New bisacodyl (Dulcolax (bisacodyl)) 10 mg (2 x 5 mg) PO BEDTIME 180 tabs 4RF linaclotide (Linzess) 290 mcg PO QAM 30 caps 4RF K59.00 - Constipation, unspecified Discontinued linaclotide Discontinued Reason: Doctor's Order 145 mcg PO DAILY 30 caps 2RF Coding Level of Care Code Est Pt Level 4 (39048) Complex EM visit Add On G2211 Diagnoses Gastroesophageal reflux disease, unspecified whether esophagitis present K21.9 Esophagitis presence: esophagitis presence not specified Slow transit constipation K59.01 Constipation type: slow transit constipation Postprandial epigastric pain R10.13 Generalized abdominal pain R10.84 Abdominal location: generalized Postprandial abdominal bloating R14.0 Time Spent (min) 40 Comment 25 minutes spent with patient and additional 15 minutes spent reviewing her records
--- OUTSIDE RECORDS SUMMARY | 2025-06-10 16:46 | XMS_ITS | Encounter Summary ---
Author Organization [facility] Address [address] [place] [address] Care Team Providers Care Skinner Pelts Name Role Phone Luisa Manriquez MD Primary Care Provider Reason for Visit * Reason Onset Date Comments Hospital Follow-up 06/08/2025 Encounter Details Date Type Department Care Team ([facility] Contact Info) Description 06/08/2025 Telephone Obstetrics and Gynecology - [place] [address] [place] [address] Purnima Oconnell, [place] [address] Social History Tobacco Use Types Packs/Day Years Used Date Smoking Tobacco: Never Smokeless Tobacco: Never Alcohol Use Standard Drinks/Week Comments Yes 0 [...] your loved ones. For example, child care giver or elderly care for an older adult? [...] on file Sexual Orientation Not on file documented as of this encounter Progress Notes * Carmina Garcia - 06/08/2025 2:02 PM EDT Patient called back - scheduled with Dr Felipe on 06/11/25 * Carol Caban RN - 06/08/2025 10:59 AM EDT Please schedule pt- next available with any provider. Left message to return call. * Audrey Christopher RN - 06/08/2025 10:32 AM EDT [facility] faxed medical records from ED Visit on 06/05/25 * Rafia Mike - 06/08/2025 10:07 AM EDT Pt went to [facility] on 06/05/25, ruptured ovarian cyst, was advised to follow up with Electric Meter Tester. documented in this encounter Plan of Treatment Upcoming Encounters Date Type Department Care Team (Late st Contact Info) Description 06/11/2025 11:15 AM EDT Office Visit Obstetrics and Gynecology - [place] [address] [place] [address] Leyda Felipe DO [address] [place] [address] documented as of this encounter Visit Diagnoses Not on filedocumented in this encounter Additional Health Concerns Assessment Noted Time PHQ-9 Depression Total Score: 0 01/04/20 11:17 AM EDT documented as of this encounter Care Teams Skinner Pelts Relationship Specialty Start Date End Date Luisa Manriquez MD [address] [place] [address] PCP - General Internal Medicine 01/02/25 documented as of this encounter
--- OUTSIDE RECORDS SUMMARY | 2025-06-10 16:46 | XMS_ITS | Patient Health Record ---
Author Organization [facility] Address [address] [place] [id number] Care Team Providers Care Brazing Machine Feeder Name Role Phone MOMO PIZANO Primary Care Provider Cristi Ellsworth [phone] Allergies Allergen (clinical drug ingredient) Drug/Non Drug [...] Problem Status W/U Status Risk Notes Problem [id number] Abdominal pain, epigastric (R10.13) Active confirmed Problem 136435460 Positive autoantibody screening for celiac disease (R76.8) Active confirmed Problem 52642515 Irritable bowel syndrome, unspecified type (K58.9) Active confirmed Problem [id number] Abdominal pain, lower (R10.30) Active confirmed Plan Of Treatment Future Test Test Name Order Date UPPER GI ENDOSCOPY 10/02/2017 Insurance Providers Payer Name Payer Address Payer Phone Subscriber Number Group Number Insured Name Patient Relationship to Insured Coverage Start Date Coverage End Date [facility] [address] [place] [address] [id number] Self - patient is the insured Medical (General) History Medical History History ICD Code Denies MT,DM,CVA,Lung disease,renal dise ase Asthma--inhaler prn Colonoscopy with Dr. Talbert 2013--report describes that it was a normal exam--told of IBS Kidney stone BENIGN PAROXYSMAL POSITIONAL VERTIGO/BPP V 2018 EGD in 10/2017--minimal HH, neg. biopsies for celiac disease and H.pylori Neg. abodominal U/S in 10/2017
--- OUTSIDE RECORDS SUMMARY | 2025-06-10 16:46 | XMS_ITS | Clinical Summary ---
Author Organization [facility] [address] [place] [address] [place] [phone] Phone Care Team Providers Care Lunch Truck Operator Name Role Phone Luisa Manriquez MD Primary Care Provider Allergies Active Allergy Reactions Criticality Noted Date Comments Amoxicillin Hives 09/09/2024 Penicillins Hives 09/09/2024 Medications LORazepam (ATIVAN) 1 mg tablet Take 1 Tablet by mouth every 6 hours as needed. - Oral Active linaCLOtide (LINZESS) 72 mcg capsule Take by mouth as needed. - Oral Active Encounters Date Type Department Care Team Description 06/08/2025 Telephone Obstetrics and Gynecology - [address] [phone] Purnima Oconnell PA from Last 3 Months Social History Tobacco [...] your loved ones. For example, early childhood teacher or elderly care for an older [...] 01/05/2025 9:37 AM EDT Plan of Treatment Upcoming Encounters Date Type Department Care Team (Late st Contact Info) Description 06/11/2025 11:15 AM EDT Office Visit Obstetrics [facility]necology - [address] [address] [place] [address] Leyda Felipe DO [address] [facility] [place] [address] Health Maintenance Due Date Last Done Comments [...] Final Result [facility] [address] [place] [address], from Last 3 Months or Most Recently Relevant to Health Maintenance Insurance [facility] [facility] Care Teams Lunch Truck Operator Relationship Specialty Start Date End Date Luisa Manriquez MD [address] [facility] [place] [address] PCP - General Internal Medicine 01/02/25
== END 2025-06-10 16:11 | disposition home or self-care (01) ==
LOC: HO.HGI 15:36
PROVIDERS: PCP Internal Medicine; Visit Provider Nurse Practitioner Family
DX: K21.9 Gastro-esophageal reflux disease without esophagitis (principal); K59.01 Slow transit constipation; R10.13 Epigastric pain; R10.84 Generalized abdominal pain; R14.0 Abdominal distension (gaseous)
CPT/HCPCS: 99214

== ENCOUNTER → 2025-06-10 15:35 | Outpatient (BNVA) | payer OTHER, SELFPAY | PROVIDERS: PCP Internal Medicine; Visit Provider Nurse Practitioner Family | DX: K21.9 Gastro-esophageal reflux disease without esophagitis (principal); K59.01 Slow transit constipation; R10.13 Epigastric pain; R10.84 Generalized abdominal pain; R14.0 Abdominal distension (gaseous) | CPT/HCPCS: 99212 ==

== ENCOUNTER 2025-06-22 15:28 | Outpatient (AMB) | payer OTHER, SELFPAY ==
--- NOTE | 2025-06-22 15:56 | AM.OFFWIN_ITS ---
Intake Vital Signs 06/22/25 15:57 Height 5 ft 5 in Weight 146 lb BMI 24.3 BP 116/70 Blood Pressure Location Lt brachial Position Sitting Pulse 83 Pulse Source Pulse Oximeter Temp 98.2 F Temp Source Oral Pulse Oximetry (%) 98 Intake Visit Reasons: EP-pelvic pain [phone] Intake Note: pt is here for pelvic pain due to cyst, she was told recently that one ruptured and her OB told her to come in here since there were unable to get her in. she is prepared for an exam. Patient Tobacco Use Status: Never used Tobacco Allergies amoxicillin (AMOXICILLIN) Allergy (Unknown, Verified 06/22/25 15:57) Rash Penicillins (PENICILLINS) Allergy (Unknown, Verified 06/22/25 15:57) Rash ketorolac (From Toradol) Allergy (Verified 06/22/25 15:57) Nausea and Vomiting tramadol Adverse Reaction (Verified 06/22/25 15:57) Vomiting Do you need a note to return to daycare/school/sports/work: Yes HPI HPI Comments History of Present Illness Details 30 y/o Female patient who presents to [facility] walk in clinic with c/o RLQ abdominal/Pelvic Pain. She was seen and evaluated at the [facility] few weeks ago - CT abdomen/Pelvis showed Ruptured Ovarian Cyst. Pt Called her Antenna Installer office for f/u visit, but unable to secure an appointment - she was told to go to ED or UC for an evaluation. Today she continues to have Pain, but improving compared to few weeks ago. She did have her period recently. Sexually active with 1 male partner - no protection. She would like to conceive in a near future. Denies any Vaginal or urinary symptoms today. [facility] Medical History (Updated 06/22/25 @ 16:41 by Zeina Weiss NP) Pelvic pain Dyslipidemia Generalized anxiety disorder GERD (gastroesophageal reflux disease) Intermittent palpitations Overweight (BMI 25.0-29.9) Constipation Mixed dyslipidemia Upper back pain, chronic Vitamin D deficiency Mild intermittent asthma IBS (irritable bowel syndrome) Surgical History Hx of breast reduction, elective History of wisdom tooth extraction Family History Father Diabetes mellitus HTN (hypertension) Stroke Back problem Kidney stone Mental health disorder Mother Anxiety Ovarian cyst Mental health disorder Maternal Grandmother Unknown family medical history Maternal Grandfather Unknown family medical history Paternal Grandmother Unknown family medical history Alzheimer's disease Paternal Grandfather Unknown family medical history Brother No problems noted. Brother No problems noted. Brother No problems noted. Sister No problems noted. Sister No problems noted. Sister No problems noted. Sister No problems noted. Maternal Aunt Crohn's disease Social History Household Members: Family Housing: House Alcohol intake: never Patient Tobacco Use Status: Never used Tobacco e-Cigarette/Vaping Use: Never Used service: No Current occupational status: employed Cognitive needs: No Hearing needs: No Vision needs: Yes Review of Systems Const All systems reviewed & are unremarkable except as noted in HPI and below Physical Exam Vital Signs: Last Vital Signs Temp 98.2 F 06/22/25 15:57 Pulse 83 06/22/25 15:57 BP 116/70 06/22/25 15:57 Pulse Ox 98 06/22/25 15:57 BMI result Body Mass Index 24.3 Const General: no acute distress Nutritional Appearance: well nourished Orientation/consciousness: patient oriented x3 Resp Effort & Inspection: normal respiratory effort Auscultation: clear to auscultation bilaterally Cardio Heart sounds: S1 normal heart sound present and S2 normal heart sound present Other: Deferred Pelvic Exam today. General: Yes deferred Neuro General: patient oriented x3, gait normal and moves all extremities Psych Speech and movement: Normal speech and movement present Assessment & Plan Assessment & Plan (1) Pelvic pain: Code(s): R10.2 - Pelvic and perineal pain Plan: Pain is improving - advised to take Ibuprofen Q8hrs for pain relief. May use Heat Pad for pain relief. Advised the Use DERIAN to prevent Ovarian cysts. Coding Level of Care Code Est Pt Level 4 (06897) Diagnoses Pelvic pain R10.2 Time Spent (min) 20
[2025-06-22 15:57] VITALS: BP 116/70; PULSE 83; TEMP 36.8; O2SAT 98; BMI 24.3
--- OUTSIDE RECORDS SUMMARY | 2025-06-22 18:28 | XMS_ITS | Clinical Summary ---
Author Organization [facility] [address] [place] [address] [place] [phone] Phone Care Team Providers Care Digital Marketing Assistant Name Role Phone Luisa Manriquez MD Primary [...] Description 06/08/2025 Telephone Obstetrics and Gynecology - [address] [phone] Purnima Oconnell PA from Last [...] care for your loved ones. For example, housekeeper child care or elderly care for an older [...] C Screening 09/17/2022 COVID-19 Vaccine (3 - 2024-2 6 season) 2025 08/02/2021, 07/12/2021 Influenza Vaccine (#1) 2025 , [...] LAB MICROBIOLOGY METHOD 01/06/2025 2:12 PM EDT [facility] Brushing/Spatula Cervix uteri structure / Unknown 01/05/2025 9:53 AM EDT 01/06/2025 6:10 AM EDT us Purnima WOMACK LAB MOLECULAR DIAGNOSTICS OR DERABLES Final Result [facility] [address] [place] [address], [place] [phone] from Last 3 Months or Most Recently Relevant to Health Maintenance Insurance [facility] [employer] Care Teams Digital Marketing Assistant Relationship Specialty Start Date End Date Luisa Manriquez MD [address] [place] [address] PCP - General Internal Medicine 01/02/25
--- OUTSIDE RECORDS SUMMARY | 2025-06-22 18:28 | XMS_ITS | Patient Health Record ---
Author Organization [facility] Address [address] [place] [phone] Care Team Providers Care Chemical Pathologist Name Role Phone MOMO PIZANO Primary Care Provider Cristi Ellsworth [phone] Allergies Allergen (clinical drug ingredient) Drug/Non Drug [...] Problem Status W/U Status Risk Notes Problem [id number] Abdominal pain, epigastric (R10.13) Active confirmed Problem [id number] Positive autoantibody screening for celiac disease (R76.8) Active confirmed Problem [id number] Irritable bowel syndrome, unspecified type (K58.9) Active confirmed Problem 42764051 Abdominal pain, lower (R10.30) Active confirmed Plan Of Treatment Future Test Test Name Order Date UPPER GI ENDOSCOPY 10/02/2017 Insurance Providers Payer Name Payer Address Payer Phone Subscriber Number Group Number Insured Name Patient Relationship to Insured Coverage Start Date Coverage End Date [facility] [address] [place] [address] [id number] BLANCA RAVI Self - patient is the insured Medical (General) History Medical History History ICD Code Denies [place],DM,CVA,Lung disease,renal dise ase Asthma--inhaler prn Colonoscopy with Dr. Talbert 2013--report describes that it was a normal exam--told of IBS Kidney stone BENIGN PAROXYSMAL POSITIONAL VERTIGO/BPP V 2018 EGD in 10/2017--minimal HH, neg. biopsies for celiac disease and H.pylori Neg. abodominal U/S in 10/2017
== END 2025-06-22 16:19 | disposition home or self-care (01) ==
PROVIDERS: PCP Internal Medicine; Visit Provider Nurse Practitioner Family
DX: R10.2 Pelvic and perineal pain (principal)

== ENCOUNTER → 2025-06-22 15:28 | Outpatient (BNVA) | payer OTHER, SELFPAY | PROVIDERS: PCP Internal Medicine; Visit Provider Nurse Practitioner Family | DX: R10.2 Pelvic and perineal pain (principal) | CPT/HCPCS: 99212 ==

== ENCOUNTER 2025-07-01 12:10 | Outpatient (AMB) | payer OTHER, SELFPAY ==
[2025-07-01 12:19] VITALS: BP 90/60; PULSE 87; TEMP 36.9; O2SAT 98; BMI 24.0
--- NOTE | 2025-07-01 12:19 | AM.OFFWIN_ITS ---
Intake Vital Signs 07/01/25 12:19 07/01/25 12:26 Height 5 ft 5 in Weight 144 lb BMI 24.0 BP 90/60 102/60 Blood Pressure Location Lt brachial Rt brachial Position Sitting Sitting Pulse 87 Pulse Source Pulse Oximeter Temp 98.5 F Temp Source Oral Pulse Oximetry (%) 98 Oxygen Delivery Method Room Air Intake Visit Reasons: EP cold symptoms, cough, weak Intake Note: pt presents with cough, weakness, fatigue Patient Tobacco Use Status: Never used Tobacco Allergies amoxicillin (AMOXICILLIN) Allergy (Unknown, Verified 07/01/25 12:25) Rash Penicillins (PENICILLINS) Allergy (Unknown, Verified 07/01/25 12:25) Rash ketorolac (From Toradol) Allergy (Verified 07/01/25 12:25) Nausea and Vomiting tramadol Adverse Reaction (Verified 07/01/25 12:25) Vomiting Do you need a note to return to daycare/school/sports/work: Yes HPI HPI Comments History of Present Illness Details History - The patient is a 30-year-old female pr esenting with fatigue, sore throat, nasal congestion, and headache x 2 days. - Symptoms include significant fatigue, sore throat, nasal congestion, and a severe headache, with onset occurring recently. - The patient has been using over-the-co unter Tylenol for symptom relief. - Reports chills but no fever, and denie s shortness of breath or wheezing despite a history of asthma. 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 Physical Exam General: Cooperative, healthy appearing, comfortable and no acute distress Orientation/consciousness: Patient oriented x3 Limitations: No limitations Head: Normal to inspection Ears: Hearing grossly normal bilaterally, external ears normal and TM's normal bilaterally Nose: Normal external nose present, Normal nares present and No nasal discharge present Face and sinus: Normal facial exam Mouth: Normal oral and palatal mucosa present and moist mucous membranes Throat: Yes tonsils normal, Yes uvula midline. Posterior oropharynx erythema, no exudates Eyes: Appearance normal, both eyes and all related structures Neck: Normal visual inspection, full ROM Respiratory: Clear to auscultation bilaterally. Normal respiratory effort, able to speak in complete sentences, not actively coughing, no respiratory distress, not tachypneic, no tripod positioning and no use of accessory muscles Cardiovascular: Regular rate and rhythm. Normal S1 and S2 Skin: No rashes or lesions noted Neuro: Patient oriented x3 Extremities: Normal to inspection and Yes no clubbing, cyanosis or edema PFSH Medical History (Updated 06/22/25 @ 16:41 by Zeina Wesis NP) Pelvic pain Dyslipidemia Generalized anxiety disorder GERD (gastroesophageal reflux disease) Intermittent palpitations Overweight (BMI 25.0-29.9) Constipation Mixed dyslipidemia Upper back pain, chronic Vitamin D deficiency Mild intermittent asthma IBS (irritable bowel syndrome) Surgical History Hx of breast reduction, elective History of wisdom tooth extraction Family History Father Diabetes mellitus HTN (hypertension) Stroke Back problem Kidney stone Mental health disorder Mother Anxiety Ovarian cyst Mental health disorder Maternal Grandmother Unknown family medical history Maternal Grandfather Unknown family medical history Paternal Grandmother Unknown family medical history Alzheimer's disease Paternal Grandfather Unknown family medical history Brother No problems noted. Brother No problems noted. Brother No problems noted. Sister No problems noted. Sister No problems noted. Sister No problems noted. Sister No problems noted. Maternal Aunt Crohn's disease Social History Household Members: Family Housing: House Alcohol intake: never Patient Tobacco Use Status: Never used Tobacco e-Cigarette/Vaping Use: Never Used service: No Current occupational status: employed Cognitive needs: No Hearing needs: No Vision needs: Yes Review of Systems Const All systems reviewed & are unremarkable except as noted in HPI and below Physical Exam Vital Signs: Last Vital Signs Temp 98.5 F 07/01/25 12:19 Pulse 87 07/01/25 12:19 BP 102/60 07/01/25 12:26 Pulse Ox 98 07/01/25 12:19 Oxygen Delivery Method Room Air 07/01/25 12:19 BMI result Body Mass Index 24.0 Assessment & Plan Assessment & Plan (1) Acute viral syndrome: Code(s): B34.9 - Viral infection, unspecified Plan: Plan Patient was informed and verbally consented to the use of an ambient scribe for clinic note documentation during this visit. VSS, pt well appearing and PE unremarkable. 1. Viral Infection - Conducted a viral panel to determine the specific virus. - Advised continuation of [id number] medications for symptom relief. - Recommended rest, hydration, and symptom monitoring. 2. Asthma - History of asthma noted, with no current exacerbation. Coding Level of Care Code Est Pt Level 3 (74164) Diagnoses Acute viral syndrome B34.9
[2025-07-01 12:26] VITALS: BP 102/60
--- OUTSIDE RECORDS SUMMARY | 2025-07-01 15:38 | XMS_ITS | Patient Health Record ---
Author Organization [facility] Address [address] [place] [phone] Care Team Providers Care Zipper Measurer Name Role Phone MOMO PIZANO Primary Care Provider Cristi Ellsworth [phone] Allergies Allergen (clinical drug ingredient) Drug/Non Drug [...] Problem Status W/U Status Risk Notes Problem [id number] Abdominal pain, epigastric (R10.13) Active confirmed Problem 778381787 Positive autoantibody screening for celiac disease (R76.8) Active confirmed Problem 58720187 Irritable bowel syndrome, unspecified type (K58.9) Active confirmed Problem 74278272 Abdominal pain, lower (R10.30) Active confirmed Plan Of Treatment Future Test Test Name Order Date UPPER GI ENDOSCOPY 10/02/2017 Insurance Providers Payer Name Payer Address Payer Phone Subscriber Number Group Number Insured Name Patient Relationship to Insured Coverage Start Date Coverage End Date [facility] [address] [place] [address] [phone] [id number] BLANCA RAVI Self - patient is the insured Medical (General) History Medical History History ICD Code Denies [place],DM,CVA,Lung disease,renal dise ase Asthma--inhaler prn Colonoscopy with Dr. Talbert 2013--report describes that it was a normal exam--told of IBS Kidney stone BENIGN PAROXYSMAL POSITIONAL VERTIGO/BPP V 2018 EGD in 10/2017--minimal HH, neg. biopsies for celiac disease and H.pylori Neg. abodominal U/S in 10/2017
== END 2025-07-01 12:50 | disposition home or self-care (01) ==
PROVIDERS: PCP Internal Medicine; Visit Provider Physician Assistant
DX: B34.9 Viral infection, unspecified (principal)

== ENCOUNTER 2025-07-01 12:10 | Outpatient (REF) | payer OTHER, SELFPAY ==
[2025-07-02 13:55] LABS: Chlamydia pneumoniae PCR Not Detected (Not Detect.); Coronavirus 229E PCR Not Detected (Not Detect.); Coronavirus HKU1 PCR Not Detected (Not Detect.); Coronavirus NL63 PCR Not Detected (Not Detect.); Coronavirus OC43 PCR Not Detected (Not Detect.); RSV PCR Not Detected (Not Detect.); Rhino/Enterovirus PCR Not Detected (Not Detect.)
[2025-07-02 13:59] LABS: Influenza A H1 PCR Not Detected (Not Detect.); Influenza A H1-2009 PCR Not Detected (Not Detect.); Influenza A H3 PCR Not Detected (Not Detect.); SARS-CoV-2 PCR Not Detected (Not Detect.)
== END 2025-07-01 12:11 | disposition home or self-care (01) ==
LOC: HO.LNP 12:10
PROVIDERS: PCP Internal Medicine; Visit Provider Physician Assistant
DX: B34.9 Viral infection, unspecified (principal); J06.9 Acute upper respiratory infection, unspecified
CPT/HCPCS: 87633; 99212

== ENCOUNTER 2025-07-02 12:26 | Outpatient (REF) | payer OTHER, SELFPAY ==
--- OUTSIDE RECORDS SUMMARY | 2025-07-02 14:35 | XMS_ITS | Clinical Summary ---
Author Organization [facility] [address] [place] [address] [place] [phone] Phone Care Team Providers Care Life Skills Coordinator Name Role Phone Luisa Manriquez MD Primary [...] Description 06/08/2025 Telephone Obstetrics and Gynecology - [address] [phone] Purnima Oconnell PA from Last [...] for your loved ones. For example, child nutrition director or elderly care for an older adult? [...] LAB MICROBIOLOGY METHOD 01/06/2025 2:12 PM EDT [facility] Brushing/Spatula Cervix uteri structure / Unknown 01/05/2025 9:53 AM EDT 01/06/2025 6:10 AM EDT us Purnima WOMACK LAB MOLECULAR DIAGNOSTICS OR DERABLES Final Result [facility] ([facility] [address] [place] [address], [place] [phone] from Last 3 Months or Most Recently Relevant to Health Maintenance Insurance [facility] [employer] Care Teams Life Skills Coordinator Relationship Specialty Start Date End Date Luisa Manriquez MD [address] [place] [address] PCP - General Internal Medicine 01/02/25
--- OUTSIDE RECORDS SUMMARY | 2025-07-02 14:35 | XMS_ITS | Patient Health Record ---
Author Organization [facility] Address [address] [place] [address] Care Team Providers Care Horse Show Judge Name Role Phone MOMO PIZANO Primary Care Provider Cristi Ellsworth [phone] Allergies Allergen (clinical drug ingredient) Drug/Non Drug [...] Problem Status W/U Status Risk Notes Problem [id number] Abdominal pain, epigastric (R10.13) Active confirmed Problem 721187496 Positive autoantibody screening for celiac disease (R76.8) Active confirmed Problem 93299457 Irritable bowel syndrome, unspecified type (K58.9) Active confirmed Problem 80695731 Abdominal pain, lower (R10.30) Active confirmed Plan Of Treatment Future Test Test Name Order Date UPPER GI ENDOSCOPY 10/02/2017 Insurance Providers Payer Name Payer Address Payer Phone Subscriber Number Group Number Insured Name Patient Relationship to Insured Coverage Start Date Coverage End Date [facility] [address] [place] [address] [id number] BLANCA RAVI Self - patient is the insured Medical (General) History Medical History History ICD Code Denies [place],DM,CVA,Lung disease,renal dise ase Asthma--inhaler prn Colonoscopy with Dr. Talbert 2013--report describes that it was a normal exam--told of IBS Kidney stone BENIGN PAROXYSMAL POSITIONAL VERTIGO/BPP V 2018 EGD in 10/2017--minimal HH, neg. biopsies for celiac disease and H.pylori Neg. abodominal U/S in 10/2017
== END 2025-07-02 12:27 | disposition home or self-care (01) ==
LOC: HO.LAB 12:26
PROVIDERS: Visit Provider Physician Assistant
DX: Z13.89 Encounter for screening for other disorder (principal)

== ENCOUNTER 2025-07-20 13:53 | Outpatient (REF) | payer OTHER, SELFPAY ==
--- NOTE | ~2025-07-20 | US_ITS ---
EXAMINATION: Renal ultrasound CLINICAL INFORMATION: Kidney stone. COMPARISON: Previous CT of the abdomen and pelvis most recent May 2025 TECHNIQUE: Real-time imaging of the kidneys. FINDINGS: RIGHT KIDNEY: 10 x 5 x 5 cm (SAG x AP x TRV). The kidney is normal in size, contour, and echogenicity. Renal cortical thickness is normal. No calculi or focal parenchymal lesions. No hydronephrosis. LEFT KIDNEY: 10 x 5 x 5 cm (SAG x AP x TRV). The kidney is normal in size, contour, and echogenicity. Renal cortical thickness is normal. No calculi or focal parenchymal lesions. No hydronephrosis. US/US renal BI IMPRESSION: Normal renal ultrasound. Electronically signed by: Pili Medina MD 07/20/2025 02:41 PM EDT
--- OUTSIDE RECORDS SUMMARY | 2025-07-20 16:20 | XMS_ITS | Clinical Summary ---
Author Organization [facility] [address] [place] [address] [place] [phone] Phone Care Team Providers Care Kiln Worker Name Role Phone Luisa Manriquez MD Primary [...] Description 06/08/2025 Telephone Obstetrics and Gynecology - [address] [phone] Purnima Oconnell PA from Last [...] do you feel lonely or isolated from ose around you? Rarely 01/01/2025 Food Risk [...] for your loved ones. For example, child protection specialist or elderly care for an older adult? [...] Date Recorded What is your living situation? Unrecognized valu e 01/01/2025 Comments No Sex and Gender Information [...] 3 - 19+ 3-dose series) 02/15/2016 01/18/2016 HPV Vaccines (1 - 3-dose SCD M series) 2021 HIV Screening 09/17/2022 Hepatitis C Screening 09/17/2022 COVID-19 Vaccine (3 - 2024-2 6 season) 2025 08/02/2021, 07/12/2021 Influenza Vaccine (#1) 2025 , 07/28/2016 Social Influencers of Health Screening 01/01/2026 01/01/2025 DTaP,Tdap,and Td Vaccines (2 - Td or Tdap) 01/02/2026 01/03/2016 Cervical Cancer Screening: HPV 01/05/2030 01/05/2025 RSV Immunization Adult Patients (1 - 1-dose 75+ series) 2069 Depression Screening Completed 01/03/2025 HIB Vaccines Aged [...] LAB MICROBIOLOGY METHOD 01/06/2025 2:12 PM EDT [facility] Brushing/Spatula Cervix uteri structure / Unknown 01/05/2025 9:53 AM EDT 01/06/2025 6:10 AM EDT us Purnima WOMACK LAB MOLECULAR DIAGNOSTICS OR DERABLES Final Result [facility] [address] [place] [address], from Last 3 Months or Most Recently Relevant to Health Maintenance Insurance [facility] PLAN Care Teams Kiln Worker Relationship Specialty Start Date End Date Luisa Manriquez MD [address] [place] [address] PCP - General Internal Medicine 01/02/25
--- OUTSIDE RECORDS SUMMARY | 2025-07-20 16:20 | XMS_ITS | Patient Health Record ---
Author Organization [facility] Address [address] [place] [phone] Care Team Providers Care Edge Inker Heels Name Role Phone MOMO PIZANO Primary Care Provider Cristi Ellsworth [phone] Allergies Allergen (clinical drug ingredient) Drug/Non Drug [...] Problem Status W/U Status Risk Notes Problem [id number] Abdominal pain, epigastric (R10.13) Active confirmed Problem 008759279 Positive autoantibody screening for celiac disease (R76.8) Active confirmed Problem 91966918 Irritable bowel syndrome, unspecified type (K58.9) Active confirmed Problem 94589533 Abdominal pain, lower (R10.30) Active confirmed Plan Of Treatment Future Test Test Name Order Date UPPER GI ENDOSCOPY 10/02/2017 Insurance Providers Payer Name Payer Address Payer Phone Subscriber Number Group Number Insured Name Patient Relationship to Insured Coverage Start Date Coverage End Date [facility] [address] [place] [phone] [id number] BLANCA RAVI Self - patient is the insured Medical (General) History Medical History History ICD Code Denies [place],DM,CVA,Lung disease,renal dise ase Asthma--inhaler prn Colonoscopy with Dr. Talbert 2013--report describes that it was a normal exam--told of IBS Kidney stone BENIGN PAROXYSMAL POSITIONAL VERTIGO/BPP V 2018 EGD in 10/2017--minimal HH, neg. biopsies for celiac disease and H.pylori Neg. abodominal U/S in 10/2017
== END 2025-07-20 13:54 | disposition home or self-care (01) ==
LOC: HO.HMGCX 13:53
PROVIDERS: PCP Internal Medicine; Visit Provider Nurse Practitioner Family
DX: N20.0 Calculus of kidney (principal)
CPT/HCPCS: 76775

== ENCOUNTER → 2025-07-20 14:03 | Outpatient (BNV) | payer OTHER, SELFPAY | PROVIDERS: PCP Internal Medicine; Visit Provider Radiology Diagnostic Radiology | DX: N20.0 Calculus of kidney (principal) | CPT/HCPCS: 76775 ==

== ENCOUNTER 2025-07-28 10:24 | Outpatient (AMB) | payer OTHER, SELFPAY ==
[2025-07-28 10:26] VITALS: BP 100/66; PULSE 82; RESP 15; TEMP 36.7; O2SAT 98; BMI 24.1
--- NOTE | 2025-07-28 10:26 | MHC.PC.OV ---
Vital Signs 07/28/25 10:26 Height 5 ft 5 in Weight 145 lb BMI 24.1 BP 100/66 Blood Pressure Location Rt brachial Position Sitting Respiration 15 Pulse 82 Pulse Source Pulse Oximeter Temp 98.1 F Temp Source Oral Pulse Oximetry (%) 98 Oxygen Delivery Method Room Air Intake Visit Reasons: milia/general health Intake Note: Pt is here today c/o milia under Rt eye: pt was seen by the eye doctor which wanted her to get it checked out Television News Video Editor Required: No Allergies amoxicillin (AMOXICILLIN) Allergy (Unknown, Verified 08/02/25 18:09) Rash Penicillins (PENICILLINS) Allergy (Unknown, Verified 08/02/25 18:09) Rash ketorolac (From Toradol) Allergy (Verified 08/02/25 18:09) Nausea and Vomiting tramadol Adverse Reaction (Verified 08/02/25 18:09) Vomiting Medication List - Last Reconciled 07/28/25 by Luisa Manriquez MD albuterol sulfate 90 mcg/actuation 1 puff inhalation Q6H PRN bisacodyl (Dulcolax (bisacodyl)) 10 mg (2 x 5 mg) PO BEDTIME fluoxetine mg PO lorazepam mg PO omeprazole 20 mg PO DAILY plecanatide (Trulance) 3 mg PO DAILY rosuvastatin 5 mg PO DAILY Tobacco use date assessed: 07/28/25 Dental Screening Dental Screen Date: 07/28/25 Did you have a dental visit in the last 12 months?: Yes Did you have a dental problem in the last 6 months where you did not have access to dental care?: Yes Was dental information given to patient?: Patient has dentist HPI milia/general health HPI Details The patient is a 30-year-old female with past medical history significant for mixed dyslipidemia, generalized anxiety disorder, mild intermittent asthma, here today to have a skin lesion near the eye checked. This was initially noted by her eye doctor who in turn advised her to follow-up with the PCP., The skin lesion, described as a small dot, has been causing itching and discomfort and is presumed to be milia. The patient has a history of hypercholesterolemia, managed with rosuvastatin since May, with pending follow-up tests for cholesterol levels and liver function in August. The patient reports chronic constipation, with infrequent bowel movements twice a week despite a variety of treatments. She has attempted dietary modifications, including increased fiber and hydration, with limited success, and requests referral to be seen by GI specialist. The patient has undergone two back surgeries, one in August and another in December, due to recurrent disc herniations. She reports ongoing pain along her right leg and foot despite previous interventions, including physical therapy and steroid dose packs. She is currently experiencing significant pain and difficulty with mobility, particularly on stairs. Additionally, the patient has a history of genital herpes with occasional outbreaks triggered by stress, for which she uses valacyclovir as needed. She has a persistent lymph node in the groin area, reported as a blockage-like lesion that is self-limiting. [facility] Medical History (Updated 08/02/25 @ 18:20 by Luisa Manriquez MD) Lumbar back pain with radiculopathy affecting right lower extremity Milia of eyelid Pelvic pain Dyslipidemia Generalized anxiety disorder GERD (gastroesophageal reflux disease) Intermittent palpitations Overweight (BMI 25.0-29.9) Constipation Mixed dyslipidemia Upper back pain, chronic Vitamin D deficiency Mild intermittent asthma IBS (irritable bowel syndrome) Surgical History Hx of breast reduction, elective History of wisdom tooth extraction Family History Father Diabetes mellitus HTN (hypertension) Stroke Back problem Kidney stone Mental health disorder Mother Anxiety Ovarian cyst Mental health disorder Maternal Grandmother Unknown family medical history Maternal Grandfather Unknown family medical history Paternal Grandmother Unknown family medical history Alzheimer's disease Paternal Grandfather Unknown family medical history Brother No problems noted. Brother No problems noted. Brother No problems noted. Sister No problems noted. Sister No problems noted. Sister No problems noted. Sister No problems noted. Maternal Aunt Crohn's disease Social History Household Members: Family Housing: House Alcohol intake: never Patient Tobacco Use Status: Never used Tobacco e-Cigarette/Vaping Use: Never Used service: No Current occupational status: employed Cognitive needs: No Hearing needs: No Vision needs: Yes Questionnaire PHQ-9 Over the last 2 weeks, how often have you been bothered by any of the following problems? 1. Little interest or pleasure in doing things: not at all 2. Feeling down, depressed, or hopeless: not at all 3. Trouble falling or staying asleep, or sleeping too much: not at all 4. Feeling tired or having little energy: not at all 5. Poor appetite or overeating: not at all 6. Feeling bad about yourself - or that you are a failure or have let yourself or your family down: not at all 7. Trouble concentrating on things, such as reading the newspaper or watching television: not at all 8. Moving or speaking so slowly that other people could have noticed. Or the opposite - being so fidgety or restless that you have been moving around a lot more than usual: not at all 9. Thoughts that you would be better off or of hurting yourself in some way: not at all Total score: 0 Depression Screening Interpretation: Negative Depression Screening Done: Yes Source: Developed by Drs. Cristi Butt, Becka Hillman, Bernabe Ramirez and colleagues, with an educational hiram from [employer] Thrive Questionnaire Date Thrive assessed: 05/25/25 I am a: Patient What is your living situation today?: I have a steady place to live Within the past 12 months, did the food you bought not last and you didn't have the money to get more?: Never true Within the past 12 months, did you worry whether your food would run out before you got money to buy more?: Never true Do you have trouble paying for medicines?: No Do you have trouble getting transportation to medical appointments?: Yes Do you have trouble paying your heating and electricity bill?: No Do you have trouble taking care of your child, family member or friend?: No Do you have trouble with day-to-day activities such as bathing, preparing meals, shopping, managing finances, etc.?: No Are you currently unemployed and looking for a job?: No Are you interested in more education?: No Please select the resources that you would like help with: None Currently or been in a relationship where the following occur: No concerns reported THRIVE Score: 1 AUDIT C Alcohol Use Questionnaire (AUDIT-C) 1. How often do you have a drink containing alcohol?: Never 3. How often do you have six or more drinks on one occasion?: Never Total Score: 0 RODOLFO-7 AMB Questionnaire RODOLFO-7 Date RODOLFO - 7 assessed: 05/25/25 Feeling nervous, anxious, or on edge: 1 = Several days Not being able to stop or control worryin = Not at all Worrying too much about different things: 0 = Not at all Trouble relaxin = Not at all Being so restless that it is hard to sit still: 0 = Not at all Becoming easily annoyed or irritable: 0 = Not at all Feeling afraid as if something awful might happen: 0 = Not at all Total RODOLFO-7 score (0-4 normal; 5-9 mild; 10-14 moderate; 15-21 severe): 1 Source: Developed by Drs. Cristi Butt, Becka Hillman, Bernabe Ramirez and colleagues, with an educational hiram from [employer] Review of Systems Const All systems reviewed & are unremarkable except as noted in HPI and below Physical exam (Primary Care) Vital Signs: Last Vital Signs Temp 98.1 F 07/28/25 10:26 Pulse 82 07/28/25 10:26 Resp 15 07/28/25 10:26 BP 100/66 07/28/25 10:26 Pulse Ox 98 07/28/25 10:26 Oxygen Delivery Method Room Air 07/28/25 10:26 BMI result Body Mass Index 24.1 Tobacco/Smoking Status: Tobacco use Status Tobacco use date assessed 07/28/25 07/28/25 10:30 Patient Tobacco Use Status Never used Tobacco 07/28/25 10:30 e-Cigarette/Vaping Use Never Used 07/28/25 10:30 PHQ-9: PHQ-9 Score PHQ-9: Total score 0 07/28/25 10:54 Depression Screening Interpretation: Negative Thrive Assessment: Date of Thrive Assessment Date Thrive assessed 05/25/25 07/28/25 10:30 Currently or been in a relationship where the following occur: No concerns reported Const Orientation/consciousness: patient oriented x3 HENMT Ears: EAC's normal General nose exam: Normal external nose present, Normal nares present and No nasal discharge present Eyes General: appearance normal, both eyes and all related structures Neck Neck: Yes normal visual inspection, Yes full ROM, Yes no lymphadenopathy, Yes supple and Yes prominent dorsocervical fat pad Resp Auscultation: clear to auscultation bilaterally Cardio Other: S1-S2 present regular rate and rhythm GI Palpation (GI): Soft to palpation, nontender, no guarding and no masses Auscultation: normal bowel sounds General: Yes no CVA tenderness Back/Spine/Pelvis Back: no CVA tenderness Cervical Spine: cervical ROM normal Skin Other: Tiny slightly raised whitish colored lesion on inner canthus of right eye, closed comedones on cheeks and chin area Neuro General: patient oriented x3, gait normal, moves all extremities, no focal motor deficits and CN's II-XI intact bilaterally Extrem General: Yes full ROM and Yes normal gait Psych Appearance: grossly normal and well kempt Mental Status: mental status grossly normal Speech and movement: Normal speech and movement present Affect: normal affect Coding Level of Care Code Est Pt Level 4 (50469) Diagnoses Slow transit constipation K59.01 Constipation type: slow transit constipation Milia of eyelid H02.829 Lumbar back pain with radiculopathy affecting right lower extremity M54.16 Assessment & Plan Assessment & Plan (1) Constipation: Code(s): K59.00 - Constipation, unspecified Category: Medical Qualifiers: Constipation type: slow transit constipation Qualified Code(s): K59.01 - Slow transit constipation (2) Milia of eyelid: Code(s): H02.829 - Cysts of unspecified eye, unspecified eyelid Category: Medical (3) Lumbar back pain with radiculopathy affecting right lower extremity: Code(s): M54.16 - Radiculopathy, lumbar region Category: Medical Plan I reviewed the diagnosis of milia with the patient, discussing potential dermatologic evaluation for removal if necessary. We discussed her hypercholesterolemia management with rosuvastatin and the importance of ongoing follow-up testing. For chronic constipation, we explored dietary advice and potential colonoscopy for further investigation. I counseled the patient on her postoperative back pain management, introducing the possibility of acupuncture as an adjunct therapy, and ensuring she understands current limitations on further surgery as that option is not viable given the current findings. The management plan for genital herpes includes episodic use of valacyclovir and Lysine supplementation to help prevent outbreaks. Return precautions and follow-up plans were discussed, including close monitoring of her symptoms and response to treatments, and a consultation with a therapist was facilitated to assist with managing stress related to her conditions. Patient was informed and verbally consented to the use of an ambient scribe for clinic note documentation during this visit. Orders: Orders TSH reflex Free T4 08/15/25 K59.01 - Slow transit constipation Referrals Dermatology Referral H02.829 - Cysts of unspecified eye, unspecified eyelid, L70.9 - Acne, unspecified
--- OUTSIDE RECORDS SUMMARY | 2025-07-28 12:16 | XMS_ITS | Clinical Summary ---
Author Organization [facility] [address] [place] [address] [place] [phone] Phone Care Team Providers Care Communications Program Manager Name Role Phone Luisa Manriquez MD Primary [...] Description 06/08/2025 Telephone Obstetrics and Gynecology - [address] [phone] Purnima Oconnell PA from Last [...] for your loved ones. For example, child welfare director or elderly care for an older [...] LAB MICROBIOLOGY METHOD 01/06/2025 2:12 PM EDT [facility] Brushing/Spatula Cervix uteri structure / Unknown 01/05/2025 9:53 AM EDT 01/06/2025 6:10 AM EDT us Purnima WOMACK LAB MOLECULAR DIAGNOSTICS OR DERABLES Final Result [facility] [address] [place] [address], from Last 3 Months or Most Recently Relevant to Health Maintenance Insurance [facility] Care Teams Communications Program Manager Relationship Specialty Start Date End Date Luisa Manriquez MD [address] [place] [address] PCP - General Internal Medicine 01/02/25
--- OUTSIDE RECORDS SUMMARY | 2025-07-28 12:16 | XMS_ITS | Patient Health Record ---
Author Organization [facility] Address [address] [place] [address] Care Team Providers Care Photography Intern Name Role Phone HARINDER MOMO Primary Care Provider Cristi Ellsworth [phone] Allergies Allergen (clinical drug ingredient) Drug/Non Drug [...] needed Orally every 4-6 hours prn abdomianl discomfort/cramps; Duration: 30 days 03/26/2018 Active Social History Tobacco [...] Problem Status W/U Status Risk Notes Problem Epigastric pain (06948251) Abdominal pain, epigastric (R10.13) Active confirmed Problem Autoantibody screening for celiac disease positive (540534929) Positive autoantibody screening for celiac disease (R76.8) Active confirmed Problem Irritable bowel syndrome (84493564) Irritable bowel syndrome, unspecified type (K58.9) Active confirmed Problem Lower abdominal pain (50941774) Abdominal pain, lower (R10.30) Active confirmed Plan Of Treatment Future Test Test Name Order Date UPPER GI ENDOSCOPY 10/02/2017 Insurance Providers Payer Name Payer Address Payer Phone Subscriber Number Group Number Insured Name Patient Relationship to Insured Coverage Start Date Coverage End Date [facility] [address] [place] [address] [id number] BLANCA MAGALLANES Self - patient is the insured Medical (General) History Medical History History ICD Code Denies [place],DM,CVA,Lung disease,renal dise ase Asthma--inhaler prn Colonoscopy with Dr. Talbert 2013--report describes that it was a normal exam--told of IBS Kidney stone BENIGN PAROXYSMAL POSITIONAL VERTIGO/BPP V 2018 EGD in 10/2017--minimal HH, neg. biopsies for celiac disease and H.pylori Neg. abodominal U/S in 10/2017
== END 2025-07-28 12:28 | disposition home or self-care (01) ==
LOC: HO.HMCC 10:25
PROVIDERS: PCP Internal Medicine; Visit Provider Internal Medicine
DX: K59.01 Slow transit constipation (principal); H02.829 Cysts of unspecified eye, unspecified eyelid; M54.16 Radiculopathy, lumbar region

== ENCOUNTER → 2025-07-28 10:24 | Outpatient (BNVA) | payer OTHER, SELFPAY | PROVIDERS: PCP Internal Medicine; Visit Provider Internal Medicine | DX: F41.1 Generalized anxiety disorder (principal); E78.5 Hyperlipidemia, unspecified; J45.20 Mild intermittent asthma, uncomplicated; E78.00 Pure hypercholesterolemia, unspecified; B00.9 Herpesviral infection, unspecified; K59.01 Slow transit constipation; H02.829 Cysts of unspecified eye, unspecified eyelid; M54.16 Radiculopathy, lumbar region; Z79.899 Other long term (current) drug therapy | CPT/HCPCS: 99212 ==

== ENCOUNTER 2025-07-31 10:31 | Outpatient (AMB) | payer OTHER, SELFPAY ==
[2025-07-31 11:00] VITALS: BP 98/60; PULSE 93; TEMP 36.8; O2SAT 94; BMI 23.5
--- NOTE | 2025-07-31 11:00 | MHC.OFFWIV ---
Intake Vital Signs 07/31/25 11:00 Height 5 ft 5 in Weight 141 lb 2 oz BMI 23.5 BP 98/60 Blood Pressure Location Rt brachial Position Sitting Pulse 93 Pulse Source Pulse Oximeter Temp 98.3 F Temp Source Oral Pulse Oximetry (%) 94 Oxygen Delivery Method Room Air Intake Visit Reasons: EP Insect bite on right leg [phone] Intake Note: Patient presents for insect bite on her inner of right thigh x2 days Patient Tobacco Use Status: Never used Tobacco Allergies amoxicillin (AMOXICILLIN) Allergy (Unknown, Verified 07/31/25 11:02) Rash Penicillins (PENICILLINS) Allergy (Unknown, Verified 07/31/25 11:02) Rash ketorolac (From Toradol) Allergy (Verified 07/31/25 11:02) Nausea and Vomiting tramadol Adverse Reaction (Verified 07/31/25 11:02) Vomiting Medication List - Last Reconciled 07/31/25 by Casimiro Butler MD albuterol sulfate 90 mcg/actuation 1 puff inhalation Q6H PRN bisacodyl (Dulcolax (bisacodyl)) 10 mg (2 x 5 mg) PO BEDTIME fluoxetine mg PO lorazepam mg PO omeprazole 20 mg PO DAILY plecanatide (Trulance) 3 mg PO DAILY rosuvastatin 5 mg PO DAILY Do you need a note to return to daycare/school/sports/work: No HPI EP Insect bite on right leg [phone] HPI Details History of Present Illness The patient is a 30 year old female presenting with multiple insect bites. Right leg above knee medially Insect bites on the right leg: - Patient noticed multiple insect bites on her right leg approximately two days ago. - Initial description included a light green discoloration around a circular pattern. - Presentation was characterized by itching and mild pain around the area. . - The patient has been using an [id number] itch cream as treatment. - No extension of lesions beyond the original site on the right leg was reported. Problem List - Insect bites with localized itching and discoloration Plan - Recommend medication to manage itching and inflammation. Prednisone 10 mg just for 3 days once a day and triamcinolone local cream - Emphasize monitoring for increasing redness or spreading lesions and notify if observed. - Reassure the patient that the condition is not consistent with Lyme disease . - Discuss the tetanus vaccine status, noting the last administration in 2016, and advise on possible future administration, ensuring cleanliness without dirt contamination. Review of Systems - General: No fever no chills - Neurological: No headaches no dizziness - Ear nose throat: No sore throat no hearing difficulty no ear pain - Cardiovascular: No syncope, no chest pain, no palpitations - Gastrointestinal: No nausea vomiting or diarrhea Physical Exam General: No acute distress HEENT: No acute findings Neck: Supple Extremities: Multiple bites on the right leg, slight pain around the area, above knee medially about 5 bite kinney [employer] SAL[employer]: Alert awake oriented x3 motor intact Skin: Normal turgor [facility] Medical History Milia of eyelid Pelvic pain Dyslipidemia Generalized anxiety disorder GERD (gastroesophageal reflux disease) Intermittent palpitations Overweight (BMI 25.0-29.9) Constipation Mixed dyslipidemia Upper back pain, chronic Vitamin D deficiency Mild intermittent asthma IBS (irritable bowel syndrome) Surgical History Hx of breast reduction, elective History of wisdom tooth extraction Family History Father Diabetes mellitus HTN (hypertension) Stroke Back problem Kidney stone Mental health disorder Mother Anxiety Ovarian cyst Mental health disorder Maternal Grandmother Unknown family medical history Maternal Grandfather Unknown family medical history Paternal Grandmother Unknown family medical history Alzheimer's disease Paternal Grandfather Unknown family medical history Brother No problems noted. Brother No problems noted. Brother No problems noted. Sister No problems noted. Sister No problems noted. Sister No problems noted. Sister No problems noted. Maternal Aunt Crohn's disease Social History Household Members: Family Housing: House Alcohol intake: never Patient Tobacco Use Status: Never used Tobacco e-Cigarette/Vaping Use: Never Used service: No Current occupational status: employed Cognitive needs: No Hearing needs: No Vision needs: Yes Physical Exam Vital Signs: Last Vital Signs Temp 98.3 F 07/31/25 11:00 Pulse 93 07/31/25 11:00 BP 98/60 07/31/25 11:00 Pulse Ox 94 07/31/25 11:00 Oxygen Delivery Method Room Air 07/31/25 11:00 BMI result Body Mass Index 23.5 Assessment & Plan Assessment & Plan (1) Insect bites: Code(s): W57.XXXA - Bitten or stung by nonvenomous insect and other nonvenomous arthropods, initial encounter Qualifiers: Encounter type: initial encounter Site of insect bite: thigh Laterality: right Qualified Code(s): S70.361A - Insect bite (nonvenomous), right thigh, initial encounter; W57.XXXA - Bitten or stung by nonvenomous insect and other nonvenomous arthropods, initial encounter Plan Insect bites on the right leg: - Patient noticed multiple insect bites on her right leg approximately two days ago. - Initial description included a light green discoloration around a circular pattern. - Presentation was characterized by itching and mild pain around the area. . - The patient has been using an xvhh-kna-wuwfmpk itch cream as treatment. - No extension of lesions beyond the original site on the right leg was reported. Problem List - Insect bites with localized itching and discoloration Plan - Recommend medication to manage itching and inflammation. Prednisone 10 mg just for 3 days once a day and triamcinolone local cream - Emphasize monitoring for increasing redness or spreading lesions and notify if observed. - Reassure the patient that the condition is not consistent with Lyme disease . - Discuss the tetanus vaccine status, noting the last administration in 2015, and advise on possible future administration, ensuring cleanliness without dirt contamination. Medications: New prednisone 10 mg PO DAILY 3 tabs 0RF 3 days triamcinolone acetonide 0.5% 1 appl topical BID 15 grams 0RF 7 days Coding Level of Care Code Est Pt Level 3 (88867) Diagnoses Insect bite of right thigh, initial encounter S70.361A; W57.XXXA Encounter type: initial encounter Site of insect bite: thigh Laterality: right
--- OUTSIDE RECORDS SUMMARY | 2025-07-31 12:39 | XMS_ITS | Clinical Summary ---
Author Organization [facility] [address] [place] [address] [place] [phone] Phone Care Team Providers Care Laser Print Operator Name Role Phone Luisa Manriquez MD [...] Description 06/08/2025 Telephone Obstetrics and Gynecology - [address] [phone] Purnima Oconnell PA from Last [...] your loved ones. For example, early childhood special educator or elderly care for an older adult? [...] MICROBIOLOGY METHOD 01/06/2025 2:12 PM EDT [facility] Brushing/Spatula Cervix uteri structure / Unknown 01/05/2025 9:53 AM EDT 01/06/2025 6:10 AM EDT us Purnima WOMACK LAB MOLECULAR DIAGNOSTICS OR DERABLES Final Result [facility] [address] [place] [address], from Last 3 Months or Most Recently Relevant to Health Maintenance Insurance [facility] Care Teams Laser Print Operator Relationship Specialty Start Date End Date Luisa Manriquez MD [address] [place] [address] PCP - General Internal Medicine 01/02/25
--- OUTSIDE RECORDS SUMMARY | 2025-07-31 12:39 | XMS_ITS | Patient Health Record ---
Author Organization [facility] Address [address] [place] [address] Care Team Providers Care Customer Marketing Assistant Name Role Phone HARINDER MOMO Primary Care Provider Cristi Ellsworth [phone] Allergies Allergen (clinical drug ingredient) Drug/Non Drug [...] W/U Status Risk Notes Problem Epigastric pain (15886615) Abdominal pain, epigastric (R10.13) Active confirmed Problem Autoantibody screening for celiac disease positive (308930948) Positive autoantibody screening for celiac disease (R76.8) Active confirmed Problem Irritable bowel syndrome (74081829) Irritable bowel syndrome, unspecified type (K58.9) Active confirmed Problem Lower abdominal pain (52560217) Abdominal pain, lower (R10.30) Active confirmed Plan Of Treatment Future Test Test Name Order Date UPPER GI ENDOSCOPY 10/02/2017 Insurance Providers Payer Name Payer Address Payer Phone Subscriber Number Group Number Insured Name Patient Relationship to Insured Coverage Start Date Coverage End Date [facility] [address] [place] [address] [id number] BLANCA MAGALLANES Self - patient is the insured Medical (General) History Medical History History ICD Code Denies [place],DM,CVA,Lung disease,renal dise ase Asthma--inhaler prn Colonoscopy with Dr. Talbert 2013--report describes that it was a normal exam--told of IBS Kidney stone BENIGN PAROXYSMAL POSITIONAL VERTIGO/BPP V 2018 EGD in 10/2017--minimal HH, neg. biopsies for celiac disease and H.pylori Neg. abodominal U/S in 10/2017
== END 2025-07-31 11:29 | disposition home or self-care (01) ==
PROVIDERS: PCP Internal Medicine; Visit Provider Internal Medicine
DX: S70.361A Insect bite (nonvenomous), right thigh, initial encounter (principal); W57.XXXA Bitten or stung by nonvenomous insect and other nonvenomous arthropods, initial encounter

== ENCOUNTER → 2025-07-31 10:31 | Outpatient (BNVA) | payer OTHER, SELFPAY | PROVIDERS: PCP Internal Medicine; Visit Provider Internal Medicine | DX: S70.361A Insect bite (nonvenomous), right thigh, initial encounter (principal); W57.XXXA Bitten or stung by nonvenomous insect and other nonvenomous arthropods, initial encounter; X58.XXXA Exposure to other specified factors, initial encounter; Y93.9 Activity, unspecified; Y92.9 Unspecified place or not applicable; Y99.9 Unspecified external cause status | CPT/HCPCS: 99212 ==

== ENCOUNTER 2025-08-06 08:33 | Outpatient (AMB) | payer OTHER, SELFPAY ==
--- NOTE | 2025-08-06 08:32 | A.OFFPC_ITS ---
Intake Visit Reasons: WALK IN F/UP Manuscript Reader Required: No Allergies amoxicillin (AMOXICILLIN) Allergy (Unknown, Verified 08/06/25 08:32) Rash Penicillins (PENICILLINS) Allergy (Unknown, Verified 08/06/25 08:32) Rash ketorolac (From Toradol) Allergy (Verified 08/06/25 08:32) Nausea and Vomiting tramadol Adverse Reaction (Verified 08/06/25 08:32) Vomiting Medication List - Last Reconciled 08/06/25 by Casimiro Butler MD albuterol sulfate 90 mcg/actuation 1 puff inhalation Q6H PRN bisacodyl (Dulcolax (bisacodyl)) 10 mg (2 x 5 mg) PO BEDTIME fluoxetine mg PO lorazepam mg PO omeprazole 20 mg PO DAILY plecanatide (Trulance) 3 mg PO DAILY rosuvastatin 5 mg PO DAILY triamcinolone acetonide 0.5% 1 appl topical BID 7 days Tobacco use date assessed: 07/28/25 Dental Screening Dental Screen Date: 07/28/25 HPI WALK IN F/UP HPI Details Telemed visit to follow up from last week Patient was seen last week when she presented for evaluation of rash above knee right leg which consist of multiple papules and skin erythema it looked more like insect bites than shingles she was treated with Prednisone 10 mg for 3 days and local triamcinolone cream Patient states that rash has resolved PFSH Medical History Lumbar back pain with radiculopathy affecting right lower extremity Milia of eyelid Pelvic pain Dyslipidemia Generalized anxiety disorder GERD (gastroesophageal reflux disease) Intermittent palpitations Overweight (BMI 25.0-29.9) Constipation Mixed dyslipidemia Upper back pain, chronic Vitamin D deficiency Mild intermittent asthma IBS (irritable bowel syndrome) Surgical History Hx of breast reduction, elective History of wisdom tooth extraction Family History Father Diabetes mellitus HTN (hypertension) Stroke Back problem Kidney stone Mental health disorder Mother Anxiety Ovarian cyst Mental health disorder Maternal Grandmother Unknown family medical history Maternal Grandfather Unknown family medical history Paternal Grandmother Unknown family medical history Alzheimer's disease Paternal Grandfather Unknown family medical history Brother No problems noted. Brother No problems noted. Brother No problems noted. Sister No problems noted. Sister No problems noted. Sister No problems noted. Sister No problems noted. Maternal Aunt Crohn's disease Social History Household Members: Family Housing: House Alcohol intake: never Patient Tobacco Use Status: Never used Tobacco e-Cigarette/Vaping Use: Never Used service: No Current occupational status: employed Cognitive needs: No Hearing needs: No Vision needs: Yes Questionnaire Thrive Questionnaire Date Thrive assessed: 05/25/25 RODOLFO-7 AMB Questionnaire RODOLFO-7 Date RODOLFO - 7 assessed: 05/25/25 Source: Developed by Drs. Cristi Butt, Becka Hillman, Bernabe Ramirez and colleagues, with an educational hiram from [employer]. Physical exam (Primary Care) Tobacco/Smoking Status: Tobacco use Status Tobacco use date assessed 07/28/25 08/06/25 08:33 Patient Tobacco Use Status Never used Tobacco 08/06/25 08:33 e-Cigarette/Vaping Use Never Used 08/06/25 08:33 Thrive Assessment: Date of Thrive Assessment Date Thrive assessed 05/25/25 08/06/25 08:33 Coding Level of Care Code Tele Est Pt Level 2 (87048) Diagnoses Papular rash, localized R21 Assessment & Plan Assessment & Plan (1) Papular rash, localized: Code(s): R21 - Rash and other nonspecific skin eruption Category: Medical Plan Telemed visit to follow up from last week Patient was seen last week when she presented for evaluation of rash above knee right leg which consist of multiple papules and skin erythema it looked more like insect bites than shingles she was treated with Prednisone 10 mg for 3 days and local triamcinolone cream Patient states that rash has resolved
--- OUTSIDE RECORDS SUMMARY | 2025-08-06 09:01 | XMS_ITS | Clinical Summary ---
Author Organization [facility] [address] [place] [address] [place] [phone] Phone Care Team Providers Care Faculty Neuropsychologist Name Role Phone Luisa Manriquez MD Primary Care Provider [phone] Allergies Active Allergy Reactions Criticality Noted Date Comments Amoxicillin Hives 09/09/2024 Penicillins Hives 09/09/2024 Medications LORazepam (ATIVAN) 1 mg tablet Take 1 Tablet by mouth every 6 hours as needed. - Oral Active linaCLOtide (LINZESS) 72 mcg capsule Take by mouth as needed. - Oral Active Encounters Date Type Department Care Team Description 06/08/2025 Telephone Obstetrics and Gynecology - [address] [phone] Purnima Oconnell PA from Last [...] LAB MICROBIOLOGY METHOD 01/06/2025 2:12 PM EDT [facility] Brushing/Spatula Cervix uteri structure / Unknown 01/05/2025 9:53 AM EDT 01/06/2025 6:10 AM EDT us Purnima WOMACK [facility] MOLECULAR DIAGNOSTICS OR DERABLES Final Result [facility] [address] [place] [address], from Last 3 Months or Most Recently Relevant to Health Maintenance Insurance [employer] Care Teams Faculty Neuropsychologist Relationship Specialty Start Date End Date Luisa Manriquez MD [address] [place] [address] PCP - General Internal Medicine 01/02/25
== END 2025-08-06 11:36 | disposition home or self-care (01) ==
LOC: HO.HMCC 08:33
PROVIDERS: PCP Internal Medicine; Visit Provider Internal Medicine
DX: R21 Rash and other nonspecific skin eruption (principal)

== ENCOUNTER 2025-08-10 09:44 | Outpatient (AMB) | payer OTHER, SELFPAY ==
--- NOTE | 2025-08-10 10:02 | MHC.OFFVIS ---
Vital Signs 08/10/25 10:07 Height 5 ft 5 in Weight 141 lb BMI 23.5 BP 102/60 Blood Pressure Location Rt brachial Position Sitting Pulse 94 Pulse Source Pulse Oximeter Pulse Oximetry (%) 100 Oxygen Delivery Method Room Air Intake Visit Reasons: 8w Intake Note: Est pt for mgmt of melena/hematochezia. Eval response to trulance CC; C.O. chronic sx persistence despite current therapies. Pt reports having maybe one BM / week. Neither trulance nor linzess was effective. Still experiencing abd pain, bloating, nausea + vomiting intermittently, constipation and rectal bleeding. Recruiting Coordinator Required: No Accompanied by: Self / Same As Patient Allergies amoxicillin (AMOXICILLIN) Allergy (Unknown, Verified 08/10/25 10:02) Rash Penicillins (PENICILLINS) Allergy (Unknown, Verified 08/10/25 10:02) Rash ketorolac (From Toradol) Allergy (Verified 08/10/25 10:02) Nausea and Vomiting tramadol Adverse Reaction (Verified 08/10/25 10:02) Vomiting HPI HPI 8w: Details: LAST VISIT: GERD (gastroesophageal reflux disease) Constipation Postprandial epigastric pain Abdominal pain Postprandial abdominal bloating Plan Patient will start Linzess 290 daily. She can take Dulcolax as needed in the evening if no bowel movements in 1-2 days. Increase fluid intake and activity for better bowel motility. Patient will continue taking omeprazole daily. Avoid dietary triggers and late night snacking. Staying upright foraminal 3 hours after meals discussed with patient. Patient was encouraged to get a fecal calprotectin done. Patient will return in 6-8 weeks to re-evaluate. She will call our office if she will have ongoing GI concerning symptoms. She is agreeable to this plan and verbalizes understanding of instructions. She was given the opportunity to ask questions and all questions answered. ? Thank you for allowing me to participate in her care New bisacodyl (Dulcolax (bisacodyl)) 10 mg (2 x 5 mg) PO BEDTIME 180 tabs 4RF linaclotide (Linzess) 290 mcg PO QAM 30 caps 4RF K59.00 Discontinued linaclotide Discontinued Reason: Doctor's Order 145 mcg PO DAILY 30 caps 2RF TODAY'S VISIT Patient is here today for follow-up. Patient reports that she continues to have trouble moving her bowels. Her parents and Linzess with additional Dulcolax in the evening. Patient reports no affect. Still no bowel movement for over 1 week. Patient reports occasional melena and hematochezia. Acid reflux occasionally depending on what she eats. Patient reports that she has a omeprazole as needed. Patient denies dyspepsia, dysphagia or odynophagia. Patient reports that she changed her diet. Patient reports that she is eating healthy with vegetables and fruits. Patient exercises regularly. Reports that she is drinking fluids. Patient denies any other GI concerning symptoms. [facility] Medical History Lumbar back pain with radiculopathy affecting right lower extremity Milia of eyelid Pelvic pain Dyslipidemia Generalized anxiety disorder GERD (gastroesophageal reflux disease) Intermittent palpitations Overweight (BMI 25.0-29.9) Constipation Mixed dyslipidemia Upper back pain, chronic Vitamin D deficiency Mild intermittent asthma IBS (irritable bowel syndrome) Surgical History Hx of breast reduction, elective History of wisdom tooth extraction Family History Father Diabetes mellitus HTN (hypertension) Stroke Back problem Kidney stone Mental health disorder Mother Anxiety Ovarian cyst Mental health disorder Maternal Grandmother Unknown family medical history Maternal Grandfather Unknown family medical history Paternal Grandmother Unknown family medical history Alzheimer's disease Paternal Grandfather Unknown family medical history Brother No problems noted. Brother No problems noted. Brother No problems noted. Sister No problems noted. Sister No problems noted. Sister No problems noted. Sister No problems noted. Maternal Aunt Crohn's disease Social History Household Members: Family Housing: House Alcohol intake: never Patient Tobacco Use Status: Never used Tobacco e-Cigarette/Vaping Use: Never Used service: No Current occupational status: employed Cognitive needs: No Hearing needs: No Vision needs: Yes Physical Exam Vital Signs: Last Vital Signs Pulse 94 08/10/25 10:07 BP 102/60 08/10/25 10:07 Pulse Ox 100 08/10/25 10:07 Oxygen Delivery Method Room Air 08/10/25 10:07 BMI result Body Mass Index 23.5 Assessment & Plan Assessment & Plan (1) GERD (gastroesophageal reflux disease): Code(s): K21.9 - Gastro-esophageal reflux disease without esophagitis Category: Medical Qualifiers: Esophagitis presence: esophagitis presence not specified Qualified Code(s): K21.9 - Gastro-esophageal reflux disease without esophagitis (2) Constipation: Code(s): K59.00 - Constipation, unspecified Category: Medical Qualifiers: Constipation type: slow transit constipation Qualified Code(s): K59.01 - Slow transit constipation (3) Rectal bleed: Code(s): K62.5 - Hemorrhage of anus and rectum Plan We can switch patient to Motegrity see that will help. Patient will be sent for upper endoscopy to evaluate. Patient reports acid reflux. Occasional melena and hematochezia. No family history of CRC. Patient denies any issues with anesthesia in the past. No history of sleep apnea. Not on any anticoagulation medication. I will see patient after the procedure. Patient will call us if she will have any GI concerning symptoms. Patient is agreeable to current plan of care and verbalizes understanding of instructions. She was given the opportunity to ask questions and all questions answered. Thank you for allowing me to participate in her care Orders: Referrals GI Procedure Notification K21.9 - Gastro-esophageal reflux disease without esophagitis, K62.5 - Hemorrhage of anus and rectum, Z12.11 - Encounter for screening for malignant neoplasm of colon Medications: New polyethylene glycol 3350 (Miralax) As directed by gastroenterology department at [facility] 238 grams PO ONCE 238 grams 0RF Z12.11 - Encounter for screening for malignant neoplasm of colon prucalopride (Motegrity) 2 mg PO DAILY 30 tabs 2RF K59.04 - Chronic idiopathic constipation Discontinued plecanatide (Trulance) Discontinued Reason: Doctor's Order 3 mg PO DAILY 30 tabs 3RF K59.09 - Other constipation Coding Level of Care Code Est Pt Level 3 (91460) Diagnoses Gastroesophageal reflux disease, unspecified whether esophagitis present K21.9 Esophagitis presence: esophagitis presence not specified Slow transit constipation K59.01 Constipation type: slow transit constipation Rectal bleed K62.5 Time Spent (min) 30 Comment 20 minutes spent with patient and additional 10 minutes spent reviewing her records
[2025-08-10 10:07] VITALS: BP 102/60; PULSE 94; O2SAT 100; BMI 23.5
--- OUTSIDE RECORDS SUMMARY | 2025-08-10 11:06 | XMS_ITS | Patient Health Record ---
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 disease (R76.8) Active confirmed Problem Irritable bowel syndrome (46284502) Irritable bowel syndrome, unspecified type (K58.9) Active confirmed Problem Lower abdominal pain (19842192) Abdominal pain, lower (R10.30) Active confirmed Plan Of Treatment Future Test Test Name Order Date UPPER GI ENDOSCOPY 10/02/2017 Insurance Providers Payer Name Payer Address Payer Phone Subscriber Number Group Number Insured Name Patient Relationship to Insured Coverage Start Date Coverage End Date [facility] [address] [place] [phone] [id number] BLANCA MAGALLANES Self - patient is the insured Medical (General) History Medical History History ICD Code Denies NM,DM,CVA,Lung disease,renal dise ase Asthma--inhaler prn Colonoscopy with Dr. Talbert 2013--report describes that it was a normal exam--told of IBS Kidney stone BENIGN PAROXYSMAL POSITIONAL VERTIGO/BPP V 2018 EGD in 10/2017--minimal HH, neg. biopsies for celiac disease and H.pylori Neg. abodominal U/S in 10/2017
== END 2025-08-10 10:23 | disposition home or self-care (01) ==
LOC: HO.HGI 09:45
PROVIDERS: PCP Internal Medicine; Visit Provider Nurse Practitioner Family
DX: K21.9 Gastro-esophageal reflux disease without esophagitis (principal); K59.01 Slow transit constipation; K62.5 Hemorrhage of anus and rectum
CPT/HCPCS: 99213

== ENCOUNTER → 2025-08-10 09:44 | Outpatient (BNVA) | payer OTHER, SELFPAY | PROVIDERS: PCP Internal Medicine; Visit Provider Nurse Practitioner Family | DX: Z01.818 Encounter for other preprocedural examination (principal); K21.9 Gastro-esophageal reflux disease without esophagitis; K59.01 Slow transit constipation; K62.5 Hemorrhage of anus and rectum | CPT/HCPCS: 99212 ==